=== PATIENT | male | born 1935 | race Caucasian/White ===

== ENCOUNTER 2016-12-01 10:07 | Emergency (ER) | payer MEDICARE, OTHER ==
[2016-12-01] MEDS ORDERED: SODIUM CHLORIDE 0.9% 1,000 ML IV ONE (11:51)
[2016-12-01] MEDS ORDERED: diltiaZEM INJ 5 MG/ML VIAL IVP STA ×2 (12:42→13:28)
[2016-12-01] MEDS ORDERED: diltiaZEM INJ 5 MG/ML VIAL ONE ×2 (12:59→13:31)
== END 2016-12-01 14:05 | disposition home or self-care (01) ==
DX: E86.0 Dehydration (principal); R00.0 Tachycardia, unspecified; I45.10 Unspecified right bundle-branch block; I10 Essential (primary) hypertension; I48.91 Unspecified atrial fibrillation; Z79.01 Long term (current) use of anticoagulants; E11.9 Type 2 diabetes mellitus without complications; Z79.84 Long term (current) use of oral hypoglycemic drugs; Z79.82 Long term (current) use of aspirin

== ENCOUNTER 2016-12-03 14:23 | Emergency (ER) | payer MEDICARE, OTHER ==
--- NOTE | 2016-12-03 15:17 | ED Physician Documentation ---
PD HPI CHEST PAIN - Stated complaint Stated Complaint: ELEVATED HR - Chief complaint Chief Complaint: Cardiac - History obtained from History obtained from: Patient, Other (PMD Dr. Maurer) - History of Present Illness Timing - onset: How many days ago (he has had elevated heart rate for few days. History of intermittent atrial fib. Seen in ED recently and had IV diltiazem given with slowing of heart rate and reportedly NSR at time of discharge. He says heart rate increased to 110-130 later that day and has continued that way. Seen [facility] office today and HR noted 130s. Referred to ED.) Timing - onset during: Rest, Light activity Timing - duration: Days Timing - details: Gradual onset, Still present, Waxing and waning Quality: Other (he notes his heart rate to be fast, but no chest discomfort, lightheadedness.). No: Pressure, Tightness Location: Substernal Improved by: No: Rest Worsened by: Exertion (he says his heart rate does increase with activity.) Associated symptoms: Palpitations. No: Shortness of air, Diaphoresis, Nausea, General Weakness Similar symptoms before: Diagnosis (intermittent atrial fib. He says he will note his heart rate irregular and slightly fast about 1/5 days when he takes his BP.) Recently seen: Clinic, Emergency Dept Review of Systems Constitutional: denies: Fever, Chills Nose: denies: Rhinorrhea / runny nose, Congestion Throat: denies: Sore throat Cardiac: reports: Palpitations. denies: Chest pain / pressure, Pedal edema, Calf pain Respiratory: denies: Cough GI: denies: Nausea, Vomiting, Diarrhea : denies: Dysuria, Frequency Skin: denies: Rash, Lesions Neurologic: denies: Generalized weakness, Focal weakness, Numbness, Near syncope PD PAST MEDICAL HISTORY - Past Medical History Cardiovascular: Hypertension, High cholesterol, Atrial fibrillation, Other Respiratory: None Endocrine/Autoimmune: Type 2 diabetes GI: GERD, Other : Benign prostate hypertrophy, Other HEENT: Dental implants Psych: None, Claustrophobia Musculoskeletal: Osteoarthritis Derm: Psoriasis - Past Surgical History General: Colonoscopy, EGD Ortho: Carpal Tunnel surgery HEENT: Tonsil/Adenoidectomy - Present Medications Home Medications: Ambulatory Orders Medication Instructions Recorded Confirmed Aspirin 81 mg PO DAILY 08/11/13 12/01/16 Lisinopril 10 mg PO DAILY 08/11/13 12/01/16 Loratadine [Claritin] 10 mg PO DAILY 08/11/13 12/01/16 Meloxicam 15 mg PO DAILY 08/11/13 12/03/16 Pioglitazone [Actos] 30 mg PO DAILY 08/11/13 12/01/16 Simvastatin 20 mg PO QPM 08/11/13 12/03/16 Brimonidine 0.15% Ophth Drops 1 drops OPTH BID 08/13/15 12/01/16 [Alphagan P 0.15% Ophth Drops] Diltiazem HCl [Diltiazem ER] 120 mg PO DAILY 08/13/15 12/01/16 Dorzolamide 2% Ophth Drops 1 drops OPTH QPM 08/13/15 12/01/16 [Trusopt 2% Ophth Drops] Doxazosin Mesylate 2 mg PO DAILY 08/13/15 12/01/16 Esomeprazole [NexIUM] 40 mg PO DAILY 08/13/15 12/01/16 Magnesium Oxide 500 mg PO DAILY 08/13/15 12/01/16 Multivitamin [One-A-Day Essential] 1 tab PO DAILY 08/13/15 12/01/16 Sulfasalazine [Sulfazine] 2,000 mg PO DAILY 08/13/15 12/03/16 Timolol 0.25% Ophth Drops 1 drop EACHEYE BID 08/13/15 12/03/16 [Timoptic 0.25% Ophth Drops] Ubidecarenone [Coq-10] 300 mg PO DAILY 08/13/15 12/03/16 Warfarin [Coumadin] 2.5 mg PO DAILY 12/01/16 12/03/16 Amiodarone [Pacerone] 200 mg PO DAILY #20 tablet 12/03/16 diltiaZEM [Cardizem] 60 mg PO Q6H PRN #15 tablet 12/03/16 - Allergies Allergies/Adverse Reactions: Allergies Allergy/AdvReac Type Severity Reaction Status Date / Time No Known Drug Allergies Allergy Verified 08/13/15 10:05 - Social History Does the pt smoke?: No Smoking Status: Former smoker Does the pt drink ETOH?: Yes Does the pt have substance abuse?: No PD ED PE NORMAL - Vitals Vital signs reviewed: Yes - General General: Alert and oriented X 3, No acute distress, Well developed/nourished - Neck Neck: Supple, no meningeal sign, No adenopathy - Cardiac Cardiac: No murmur, No rub. No: RRR (fairly regular but fast 130s. ) - Respiratory Respiratory: Clear bilaterally - Abdomen Abdomen: Soft, Non tender - Back Back: No CVA TTP - Derm Derm: Normal color, Warm and dry - Extremities Extremities: No deformity, No tenderness to palpate, No edema, No calf tenderness / cord - Neuro Neuro: Alert and oriented X 3, No motor deficit, Normal speech - Psych Psych: Normal mood, Normal affect Results - Vitals Vitals: Vital Signs - 24 hr 12/03/16 12/03/16 12/03/16 14:25 15:03 16:12 Temperature 36.3 C L Heart Rate 127 H 129 H 128 H Respiratory 16 16 16 Rate Blood Pressure 161/91 H 135/94 H 136/93 H O2 Saturation 96 97 98 12/03/16 12/03/16 12/03/16 16:16 16:27 16:42 Temperature Heart Rate 128 H 109 H 101 H Respiratory 18 Rate Blood Pressure 124/80 124/80 142/78 H O2 Saturation 96 99 12/03/16 12/03/16 12/03/16 18:03 18:50 19:48 Temperature Heart Rate 103 H 103 H 132 H Respiratory 16 18 18 Rate Blood Pressure 136/62 H 143/84 H 151/94 H O2 Saturation 96 99 95 12/03/16 12/03/16 19:54 20:01 Temperature Heart Rate 131 H 101 H Respiratory 17 18 Rate Blood Pressure 151/94 H 137/69 H O2 Saturation 96 94 Oxygen O2 Source Room air - EKG (time done) 14:37 Rate: Rate (enter#) (127) Rhythm: Atrial flutter Superior: Normal Intervals: Normal OR, Wide QRS QRS: Normal Ischemia: No: ST elevation c/w ischemia, ST depression Compare to prior EKG: Unchanged from prior EKG Computer interpretation: Disagree with computer - Labs Labs: Laboratory Tests 12/03/16 12/03/16 12/03/16 15:00 15:00 15:00 PT 31.2 H INR 2.7 H Sodium 138 Potassium 4.0 Chloride 103 Carbon Dioxide 27 Anion Gap 8.0 BUN 24 H Creatinine 0.9 Estimated GFR (MDRD) 81 L Glucose 165 H Calcium 8.8 Magnesium 1.7 Total Bilirubin 0.7 AST 21 ALT 22 Alkaline Phosphatase 59 B-Natriuretic Peptide 206 H Total Protein 6.8 Albumin 4.3 Globulin 2.5 Albumin/Globulin Ratio 1.7 Lipase 29 - Rads (name of study) chest Radiology: Prelim report reviewed, EMP read contemporaneously (no signs CHF. Enlarged heart. ) PD MEDICAL DECISION MAKING - ED course Complexity details: re-evaluated patient (Given history of intermittent fib and with it frequently, I think the goal is rate control initially. He is anticoagulated. However would not think he needs cardioversion and he would prefer not. Given diltiazem IV to slow the rate. I talked with oncology radiation physician Cardiology, who suggested Amiodarone for rhythm control over next few days, and to add PRN diltiazem if heart rate fast. He did not see need for abrupt rhythm control since so often in and out of fib and without symptoms. Repeat doses diltiazem until heart rate about 100. Looks more fib at this time. He is still feeling okay. Given Mag load. given first dose amiodarone. ), considered differential, d/w patient Departure - Departure Disposition: Home, Self Care Clinical Impression: Atrial fibrillation Qualifiers: Atrial fibrillation type: paroxysmal Qualified Code(s): I48.0 - Paroxysmal atrial fibrillation Condition: Stable Record reviewed to determine appropriate education?: Yes Instructions: Fibrillation Atrial Dc Follow-Up: Morteza Maurer MD [Primary Care Provider] - Prescriptions: diltiaZEM [Cardizem] 60 mg PO Q6H PRN #15 tablet PRN Reason: Tachycardia Amiodarone [Pacerone] 200 mg PO DAILY #20 tablet Comments: The Alcohol Law Enforcement Agent oncology radiation physician directed starting Amiodarone 400 mg daily for 5 days, then down to 200 mg daily. Continue the current dose of long acting diltiazem 120 mg daily. Add to that a short acting diltiazem 60 mg every 8 hours if needed for faster heart rate (over 110 or so). Continue other medications. Call your Alcohol Law Enforcement Agent tomorrow to verify the treatment and arrange a follow up appt. You will want to get your Coumadin level checked in 4-5 days to ensure it doesn't go up too high with the new medications. Return if problems sooner. Discharge Date/Time: 12/03/16 20:36
[2016-12-03] MEDS ORDERED: diltiaZEM INJ 5 MG/ML VIAL IVP STA ×3 (15:35→19:28)
[2016-12-03] MEDS ORDERED: POTASSIUM BICARB 25 MEQ TABLET PO STA (15:36)
[2016-12-03 15:54] LABS: INR 2.7 (0.8-1.2); PT - PROTHROMBIN TIME 31.2 secs (9.9-12.6)
[2016-12-03] MEDS ORDERED: diltiaZEM INJ 5 MG/ML VIAL ONE ×3 (15:59→19:42)
[2016-12-03] MEDS ORDERED: POTASSIUM BICARB 25 MEQ TABLET PO ONE (16:00)
[2016-12-03 16:07] LABS: ALBUMIN/GLOBULIN RATIO 1.7 (1.0-2.2); BILIRUBIN,TOTAL 0.7 mg/dL (0.2-1.0); CALCIUM 8.8 mg/dL (8.5-10.3); CREATININE 0.9 mg/dL (0.6-1.2); MAGNESIUM 1.7 mg/dL (1.7-2.8); TOTAL PROTEIN 6.8 g/dL (6.7-8.2)
--- NOTE | 2016-12-03 16:15 | XRAY Preliminary Report ---
Exam: XR Chest 1 View IMPRESSION: No acute airspace disease. [facility] SITE ID: [id number]
--- NOTE | 2016-12-03 16:18 | XRAY Report ---
EXAM: CHEST RADIOGRAPHY EXAM DATE: 12/03/2016 03:57 PM. CLINICAL HISTORY: Dyspnea. COMPARISON: None. TECHNIQUE: 1 view. FINDINGS: Lungs/Pleura: No focal opacities evident. No pneumothorax or pleural effusion. Mediastinum: Dense atherosclerotic aortic calcifications. Other: Bilateral shoulder degenerative changes. IMPRESSION: No acute airspace disease. [facility] Referring Provider Line: [phone] SITE ID: [id number]
[2016-12-03] MEDS ORDERED: MAGNESIUM SULFATE 2 GRAM 50 ML IV ONE ×2 (17:12→17:17)
[2016-12-03] MEDS ORDERED: AMIODARONE 200 MG TABLET PO STA (17:13)
[2016-12-03] MEDS ORDERED: diltiaZEM 30 MG TABLET PO STA (18:38)
[2016-12-03] MEDS ORDERED: diltiaZEM 30 MG TABLET PO ONE ×2 (18:50→18:51)
[2016-12-03 20:03] VITALS: BP 137/69
== END 2016-12-03 20:36 | disposition home or self-care (01) ==
LOC: ED 14:23
DX: I48.0 Paroxysmal atrial fibrillation (principal); I48.92 Unspecified atrial flutter; Z79.01 Long term (current) use of anticoagulants; Z79.82 Long term (current) use of aspirin; I10 Essential (primary) hypertension; E11.9 Type 2 diabetes mellitus without complications; Z79.84 Long term (current) use of oral hypoglycemic drugs; Z87.891 Personal history of nicotine dependence
CPT/HCPCS: 36415; 71010; 80053; 83690; 83735; 83880; 85610; 93005; 93010; 96374; 96375; 96376; 99284; A9270

== ENCOUNTER 2017-01-13 11:35 | Outpatient (CLI) | payer MEDICARE, OTHER | END 2017-01-13 11:36 | disposition home or self-care (01) | DX: E11.9 Type 2 diabetes mellitus without complications (principal) ==

== ENCOUNTER 2017-03-01 07:30 | Outpatient (CLI) | payer MEDICARE, OTHER ==
[2017-03-01 13:46] LABS: BASOPHILS % (AUTO) 0.5 %; EOSINOPHILS # (AUTO) 0.4 10^3/uL (0.0-0.7); EOSINOPHILS % (AUTO) 5.3 %; HCT - HEMATOCRIT 37.3 % (42.0-52.0); HGB - HEMOGLOBIN 12.5 g/dL (14.0-18.0); LYMPHOCYTES # (AUTO) 1.8 10^3/uL (1.5-3.5); LYMPHOCYTES % (AUTO) 22.4 %; MEAN CORPUSCULAR HEMOGLOBIN 31.5 pg (27.0-31.0); MEAN CORPUSCULAR HGB CONC 33.6 g/dL (32.0-36.0); MEAN CORPUSCULAR VOLUME 93.8 fL (80.0-94.0); MEAN PLATELET VOLUME 9.8 fL (7.4-11.4); MONOCYTES % (AUTO) 11.9 %; NEUTROPHILS # (AUTO) 4.8 10^3/uL (1.5-6.6); NEUTROPHILS % (AUTO) 59.9 %; NUCLEATED RED BLOOD CELLS AUTO 0.1 /100WBC; RED BLOOD COUNT 3.97 10^6/uL (4.70-6.10); RED CELL DISTRIBUTION WIDTH 14.9 % (12.0-15.0)
[2017-03-01 14:11] LABS: ALBUMIN/GLOBULIN RATIO 1.4 (1.0-2.2); BILIRUBIN,TOTAL 0.6 mg/dL (0.2-1.0); CALCIUM 9.2 mg/dL (8.5-10.3); CREATININE 1.3 mg/dL (0.6-1.2); POTASSIUM 4.4 mmol/L (3.5-5.0); TOTAL PROTEIN 6.8 g/dL (6.7-8.2)
== END 2017-03-01 07:31 | disposition home or self-care (01) ==
LOC: LAB.WCP 07:30
PROVIDERS: ATTEND Internal Medicine Rheumatology
DX: M05.29 Rheumatoid vasculitis with rheumatoid arthritis of multiple sites (principal)
CPT/HCPCS: 36415; 80048; 80053; 82043; 83036; 85025; 85651

== ENCOUNTER 2017-03-01 07:30 | Outpatient (CLI) | payer MEDICARE, OTHER | END 2017-03-01 07:31 | disposition home or self-care (01) | DX: E11.9 Type 2 diabetes mellitus without complications (principal) ==

== ENCOUNTER 2017-03-10 10:03 | Outpatient (CLI) | payer MEDICARE, OTHER | END 2017-03-10 10:04 | disposition home or self-care (01) | DX: I48.92 Unspecified atrial flutter (principal); I10 Essential (primary) hypertension; E11.9 Type 2 diabetes mellitus without complications; M06.9 Rheumatoid arthritis, unspecified ==

== ENCOUNTER 2017-06-03 07:45 | Outpatient (CLI) | payer MEDICARE, OTHER ==
[2017-06-03 13:43] LABS: HEMOGLOBIN A1C 0.61 g/dL
[2017-06-03 13:45] LABS: ALBUMIN/GLOBULIN RATIO 1.6 (1.0-2.2); BILIRUBIN,TOTAL 0.6 mg/dL (0.2-1.0); CALCIUM 9.2 mg/dL (8.5-10.3); CREATININE 1.4 mg/dL (0.6-1.2); POTASSIUM 4.5 mmol/L (3.5-5.0); TOTAL PROTEIN 6.8 g/dL (6.7-8.2)
== END 2017-06-03 07:46 | disposition home or self-care (01) ==
LOC: LAB.WCP 07:45
PROVIDERS: ATTEND Family Medicine
DX: I48.92 Unspecified atrial flutter (principal); I10 Essential (primary) hypertension; E11.9 Type 2 diabetes mellitus without complications; M06.9 Rheumatoid arthritis, unspecified
CPT/HCPCS: 36415; 80053; 83036

== ENCOUNTER 2017-11-03 21:53 | Outpatient (CLI) | payer MEDICARE, OTHER | END 2017-11-03 21:54 | disposition home or self-care (01) | LOC: LAB.WCP 21:53 | PROVIDERS: ATTEND Urology | DX: Z12.5 Encounter for screening for malignant neoplasm of prostate (principal) | CPT/HCPCS: 36415; G0103; 84153 ==

== ENCOUNTER 2017-12-02 07:35 | Outpatient (CLI) | payer MEDICARE, OTHER ==
[2017-12-02 13:26] LABS: BASOPHILS # (AUTO) 0.1 10^3/uL (0.0-0.1); BASOPHILS % (AUTO) 1.7 %; EOSINOPHILS # (AUTO) 0.6 10^3/uL (0.0-0.7); HGB - HEMOGLOBIN 13.3 g/dL (14.0-18.0); LYMPHOCYTES # (AUTO) 1.6 10^3/uL (1.5-3.5); LYMPHOCYTES % (AUTO) 24.6 %; MEAN CORPUSCULAR HEMOGLOBIN 31.5 pg (27.0-31.0); MEAN CORPUSCULAR HGB CONC 33.8 g/dL (32.0-36.0); MEAN CORPUSCULAR VOLUME 93.1 fL (80.0-94.0); MEAN PLATELET VOLUME 9.6 fL (7.4-11.4); MONOCYTES % (AUTO) 15.8 %; NEUTROPHILS # (AUTO) 3.2 10^3/uL (1.5-6.6); NEUTROPHILS % (AUTO) 48.9 %; PLT - PLATELET COUNT 184 10^3/uL (130-450); RED BLOOD COUNT 4.22 10^6/uL (4.70-6.10); WHITE BLOOD COUNT 6.4 x10^3/uL (4.8-10.8)
[2017-12-02 13:44] LABS: THYROID STIMULATING HORMONE 7.51 uIU/mL (0.34-5.60)
[2017-12-02 13:47] LABS: ALBUMIN 4.4 g/dL (3.2-5.5); ALBUMIN/GLOBULIN RATIO 1.6 (1.0-2.2); ALKALINE PHOSPHATASE 64 IU/L (42-121); ALT ALANINE AMINOTRANSFERASE 19 IU/L (10-60); AST ASPARTATE AMINOTRANSFERASE 26 IU/L (10-42); BILIRUBIN,TOTAL 0.4 mg/dL (0.2-1.0); BUN - BLOOD UREA NITROGEN 19 mg/dL (6-20); CALCIUM 8.8 mg/dL (8.5-10.3); CARBON DIOXIDE - CO2 27 mmol/L (21-32); CHLORIDE 103 mmol/L (101-111); CREATININE 1.5 mg/dL (0.6-1.2); GFR - MDRD 45 (>89); GLUCOSE 119 mg/dL (70-100); SODIUM 137 mmol/L (135-145); TOTAL PROTEIN 7.2 g/dL (6.7-8.2)
[2017-12-02 14:22] LABS: FREE T4 (FREE THYROXINE) 1.02 ng/dL (0.58-1.64)
[2017-12-02 14:24] LABS: HB2 TOTAL 14.4 g/dL; HEMOGLOBIN A1C 0.62 g/dL; HEMOGLOBIN A1C % 6.1 % (4.6-6.2)
== END 2017-12-02 07:36 ==
LOC: LAB.WCP 07:35
PROVIDERS: ATTEND Internal Medicine Rheumatology
DX: M06.9 Rheumatoid arthritis, unspecified (principal); E11.9 Type 2 diabetes mellitus without complications; R60.9 Edema, unspecified; I48.0 Paroxysmal atrial fibrillation; I10 Essential (primary) hypertension
CPT/HCPCS: 36415; 80053; 83036; 84439; 84443; 85025; 85651

== ENCOUNTER 2017-12-22 09:00 | Outpatient (CLI) | payer MEDICARE, OTHER ==
[2017-12-22 13:16] LABS: HB2 TOTAL 14.3 g/dL; HEMOGLOBIN A1C 0.63 g/dL; HEMOGLOBIN A1C % 6.2 % (4.6-6.2)
[2017-12-22 13:21] LABS: THYROID STIMULATING HORMONE 6.12 uIU/mL (0.34-5.60)
[2017-12-22 13:28] LABS: ALBUMIN 3.8 g/dL (3.2-5.5); ALBUMIN/GLOBULIN RATIO 1.1 (1.0-2.2); ALKALINE PHOSPHATASE 61 IU/L (42-121); ALT ALANINE AMINOTRANSFERASE 29 IU/L (10-60); AST ASPARTATE AMINOTRANSFERASE 30 IU/L (10-42); BILIRUBIN,TOTAL 0.4 mg/dL (0.2-1.0); BUN - BLOOD UREA NITROGEN 24 mg/dL (6-20); CALCIUM 9.2 mg/dL (8.5-10.3); CARBON DIOXIDE - CO2 26 mmol/L (21-32); CHLORIDE 104 mmol/L (101-111); CREATININE 1.3 mg/dL (0.6-1.2); GFR - MDRD 53 (>89); GLUCOSE 145 mg/dL (70-100); SODIUM 137 mmol/L (135-145); TOTAL PROTEIN 7.3 g/dL (6.7-8.2)
[2017-12-22 14:04] LABS: FREE T4 (FREE THYROXINE) 1.17 ng/dL (0.58-1.64)
== END 2017-12-22 09:01 | disposition home or self-care (01) ==
LOC: LAB.WCP 09:00
PROVIDERS: ATTEND Family Medicine
DX: I48.0 Paroxysmal atrial fibrillation (principal); I10 Essential (primary) hypertension; E11.9 Type 2 diabetes mellitus without complications; R60.9 Edema, unspecified
CPT/HCPCS: 36415; 80053; 83036; 84439; 84443

== ENCOUNTER 2018-02-24 08:00 | Outpatient (CLI) | payer MEDICARE, OTHER ==
[2018-02-24 13:36] LABS: HB2 TOTAL 13.1 g/dL; HEMOGLOBIN A1C 0.66 g/dL; HEMOGLOBIN A1C % 6.8 % (4.6-6.2)
[2018-02-24 13:43] LABS: ALBUMIN 3.5 g/dL (3.2-5.5); ALBUMIN/GLOBULIN RATIO 0.9 (1.0-2.2); BILIRUBIN,TOTAL 0.4 mg/dL (0.2-1.0); TOTAL PROTEIN 7.4 g/dL (6.7-8.2)
== END 2018-02-24 08:01 ==
LOC: LAB.WCP 08:00
PROVIDERS: ATTEND Family Medicine
DX: K57.90 Diverticulosis of intestine, part unspecified, without perforation or abscess without bleeding (principal); I12.9 Hypertensive chronic kidney disease with stage 1 through stage 4 chronic kidney disease, or unspecified chronic kidney disease; N18.3 Chronic kidney disease, stage 3 (moderate); E11.9 Type 2 diabetes mellitus without complications; I48.92 Unspecified atrial flutter; M06.9 Rheumatoid arthritis, unspecified
CPT/HCPCS: 36415; 80053; 82043; 83036

== ENCOUNTER 2018-04-18 08:52 | Inpatient (IN) | payer MEDICARE, OTHER ==
--- NOTE | 2018-04-18 10:29 | ED Physician Documentation ---
PD HPI URI - Stated complaint Stated Complaint: SOA/CHEST PX - Chief complaint Chief Complaint: Cardiac - History obtained from History obtained from: Patient - History of Present Illness Timing - onset: How many weeks ago (2) Timing duration: Weeks (2) Timing details: Gradual onset, Still present Associated symptoms: Fever, Nasal congestion, Rhinorrhea, Dry cough, Chest pain , Dyspnea Improves by: Rest, Medication Similar symptoms before: Has not had sx before Recently seen: Not recently seen Review of Systems Constitutional: reports: Fever Eyes: denies: Decreased vision Ears: denies: Ear pain Nose: reports: Rhinorrhea / runny nose, Congestion Throat: denies: Sore throat Cardiac: reports: Chest pain / pressure (to the right side) Respiratory: reports: Dyspnea, Cough GI: denies: Abdominal Pain, Nausea, Vomiting : denies: Dysuria, Frequency Skin: denies: Rash Musculoskeletal: denies: Neck pain, Back pain, Extremity pain Neurologic: reports: Generalized weakness. denies: Focal weakness, Numbness PD PAST MEDICAL HISTORY - Past Medical History Cardiovascular: Hypertension, High cholesterol, Atrial fibrillation, Other Respiratory: None Endocrine/Autoimmune: Type 2 diabetes GI: GERD, Other : Benign prostate hypertrophy, Other HEENT: Dental implants Psych: None, Claustrophobia Musculoskeletal: Osteoarthritis Derm: Psoriasis - Past Surgical History Past Surgical History: Yes General: Colonoscopy, EGD Ortho: Carpal Tunnel surgery HEENT: Tonsil/Adenoidectomy - Present Medications Home Medications: Ambulatory Orders Medication Instructions Recorded Confirmed Lisinopril 10 mg PO DAILY 08/11/13 04/18/18 Loratadine [Claritin] 10 mg PO DAILY 08/11/13 04/18/18 Simvastatin 20 mg PO QPM 08/11/13 04/18/18 Brimonidine 0.15% Ophth Drops 1 drops EACHEYE BID 08/13/15 04/18/18 [Alphagan P 0.15% Ophth Drops] Dorzolamide 2% Ophth Drops 1 drops EACHEYE BID 08/13/15 04/18/18 [Trusopt 2% Ophth Drops] Doxazosin Mesylate 4 mg PO QPM 08/13/15 04/18/18 Magnesium Oxide 500 mg PO DAILY 08/13/15 04/18/18 Multivitamin [One-A-Day Essential] 1 tab PO DAILY 08/13/15 04/18/18 Sulfasalazine [Sulfazine] 1,500 mg PO 0800,1600 08/13/15 04/18/18 Warfarin [Coumadin] 2.5 mg PO TUTHSA@1400 12/01/16 04/18/18 Amiodarone [Pacerone] 100 mg PO DAILY 04/18/18 04/18/18 Furosemide [Lasix] 40 mg PO 1600 04/18/18 04/18/18 Metformin HCl [Metformin HCl ER] 500 mg PO DAILY 04/18/18 04/18/18 Pantoprazole [Protonix] 40 mg PO QDAC 04/18/18 04/18/18 Potassium Chloride [K-Dur] 20 meq PO BIDWM 04/18/18 04/18/18 Timolol 0.5% Ophth Drops [Timoptic 1 drops EACHEYE BID 04/18/18 04/18/18 0.5% Ophth Drops] Warfarin [Coumadin] 1.25 mg PO SUMOWEFR@1400 04/18/18 04/18/18 - Allergies Allergies/Adverse Reactions: Allergies Allergy/AdvReac Type Severity Reaction Status Date / Time No Known Drug Allergies Allergy Verified 08/13/15 10:05 - Social History Does the pt smoke?: No Smoking Status: Former smoker Does the pt drink ETOH?: Yes Does the pt have substance abuse?: No - Immunizations Immunizations are current?: Yes PD ED PE NORMAL - Vitals Vital signs reviewed: Yes (tachy ) - General General: Alert and oriented X 3, No acute distress, Well developed/nourished - HEENT HEENT: Atraumatic, PERRL, EOMI, Ears normal, Other (dry mucous membranes ) - Neck Neck: Supple, no meningeal sign, No bony TTP - Cardiac Cardiac: No murmur, Other (tachy to 110) - Respiratory Respiratory: No respiratory distress, Other (rhonchi on the right side. ) - Abdomen Abdomen: Soft, Non tender - Back Back: No CVA TTP, No spinal TTP - Derm Derm: Normal color, Warm and dry, No rash - Extremities Extremities: No deformity, Other (trace edema bilaterally ) - Neuro Neuro: Alert and oriented X 3, No motor deficit, No sensory deficit, Normal speech Eye Opening: Spontaneous Motor: Obeys Commands Verbal: Oriented GCS Score: 15 - Psych Psych: Normal mood, Normal affect Results - Vitals Vitals: Vital Signs - 24 hr 04/18/18 04/18/18 08:59 10:08 Temperature 36.2 C L Heart Rate 115 H 110 H Respiratory 20 91 H Rate Blood Pressure 120/68 130/77 O2 Saturation 92 Oxygen O2 Source Room air - EKG (time done) 901 Rate: Rate (enter#) (116) Rhythm: NSR Intervals: RBBB Compare to prior EKG: Changed from prior EKG (SPT 12-03-16 rate has decreased) Computer interpretation: Agree with computer - Labs Labs: Laboratory Tests 04/18/18 04/18/18 04/18/18 09:26 09:26 09:26 WBC 32.8 H RBC 3.72 L Hgb 10.7 L Hct 33.8 L MCV 90.8 MCH 28.8 MCHC 31.7 L RDW 16.0 H Plt Count 394 MPV 8.9 Neut # (Auto) Not Reportable Lymph # (Auto) Not Reportable [place] # (Auto) Not Reportable Eos # (Auto) Not Reportable Baso # (Auto) Not Reportable Absolute Nucleated RBC Not Reportable Total Counted 100 Band Neuts % (Manual) 2 Abnorm Lymph % (Manual) 0 Metamyelocytes % 1 H Nucleated RBC % Not Reportable Neutrophils # (Manual) 29.2 H Lymphocytes # (Manual) 0.7 L Monocytes # (Manual) 2.6 H Eosinophils # (Manual) 0.0 Basophils # (Manual) 0.0 Differential Comment MANUAL DIFFERENTIAL Manual Slide Review Indicated Platelet Estimate NORMAL (130-450,000) Platelet Morphology NORMAL APPEARANCE RBC Morph Micro Appear NORMAL APPEARANCE PT 60.2 H INR 5.7 H* Sodium 128 L Potassium 5.1 H Chloride 93 L Carbon Dioxide 23 Anion Gap 12.0 BUN 34 H Creatinine 1.6 H Estimated GFR (MDRD) 42 L Glucose 241 H Lactic Acid Calcium 8.8 Total Bilirubin 0.5 AST 25 ALT 19 Alkaline Phosphatase 84 Troponin I Total Protein 6.4 L Albumin 3.0 L Globulin 3.4 Albumin/Globulin Ratio 0.9 L Lipase 24 Urine Color Urine Clarity Urine pH Ur Specific [place] Urine Protein Urine Glucose (UA) Urine Ketones Urine Occult Blood Urine Nitrite Urine Bilirubin Urine Urobilinogen Ur Leukocyte Esterase Ur Microscopic Review Urine Culture Comments 04/18/18 04/18/18 04/18/18 09:26 09:26 11:00 WBC RBC Hgb Hct MCV MCH MCHC RDW Plt Count MPV Neut # (Auto) Lymph # (Auto) [place] # (Auto) Eos # (Auto) Baso # (Auto) Absolute Nucleated RBC Total Counted Band Neuts % (Manual) Abnorm Lymph % (Manual) Metamyelocytes % Nucleated RBC % Neutrophils # (Manual) Lymphocytes # (Manual) Monocytes # (Manual) Eosinophils # (Manual) Basophils # (Manual) Differential Comment Manual Slide Review Platelet Estimate Platelet Morphology RBC Morph Micro Appear PT INR Sodium Potassium Chloride Carbon Dioxide Anion Gap BUN Creatinine Estimated GFR (MDRD) Glucose Lactic Acid 3.8 H* Calcium Total Bilirubin AST ALT Alkaline Phosphatase Troponin I < 0.04 Total Protein Albumin Globulin Albumin/Globulin Ratio Lipase Urine Color DARK YELLOW Urine Clarity CLEAR Urine pH 6.0 Ur Specific [place] 1.025 Urine Protein NEGATIVE Urine Glucose (UA) NEGATIVE Urine Ketones NEGATIVE Urine Occult Blood TRACE-INTA Urine Nitrite NEGATIVE Urine Bilirubin NEGATIVE Urine Urobilinogen 0.2 (NORMAL) Ur Leukocyte Esterase NEGATIVE Ur Microscopic Review NOT INDICATED Urine Culture Comments NOT INDICATED - Rads (name of study) 2 veiw chest Radiology: Prelim report reviewed (Impression: 1. Moderate right pleural effusion and right mid and lower lung opacity consider further detail CT chest with IV contrast. Cardiomegaly. No vascular congestion.), EMP read indepedently, See rad report Procedures - IVC sono (time) 1010 Bedside IVC sono: IVC measures (cm) (1.27), IVC collapsed c insp (cm) (complete) , Dehydration (est 1 liter deficit) PD MEDICAL DECISION MAKING - ED course Complexity details: reviewed results, re-evaluated patient, considered differential, d/w patient ED course: 82 y/o male with a cough for the past 2 weeks has developed pain in the right chest, soa and weakness. On arrival it appears he likely has pneumonia. He arrives tachy and tachypneic with low oxygen sat at 90% room air. Admission is sought. - Sepsis Event Vital Signs: Vital Signs - 24 hr 04/18/18 04/18/18 08:59 10:08 Temperature 36.2 C L Heart Rate 115 H 110 H Respiratory 20 91 H Rate Blood Pressure 120/68 130/77 O2 Saturation 92 Oxygen O2 Source Room air Departure - Departure Disposition: [facility] DC/Xfer Clinical Impression: Pneumonia Qualifiers: Pneumonia type: due to unspecified organism Laterality: right Lung location: lower lobe of lung Qualified Code(s): J18.1 - Lobar pneumonia, unspecified organism Discharge Date/Time: 04/18/18 13:18
[2018-04-18 11:10] LABS: BASOPHILS % (AUTO) 0.2 %; EOSINOPHILS % (AUTO) 0.1 %; HGB - HEMOGLOBIN 10.7 g/dL (14.0-18.0); LYMPHOCYTES % (AUTO) 1.7 %; MEAN CORPUSCULAR HEMOGLOBIN 28.8 pg (27.0-31.0); MEAN CORPUSCULAR HGB CONC 31.7 g/dL (32.0-36.0); MEAN CORPUSCULAR VOLUME 90.8 fL (80.0-94.0); MEAN PLATELET VOLUME 8.9 fL (7.4-11.4); MONOCYTES % (AUTO) 10.5 %; NEUTROPHILS % (AUTO) 87.5 %; PLT - PLATELET COUNT 394 10^3/uL (130-450); PT - PROTHROMBIN TIME 60.2 secs (9.9-12.6); RED BLOOD COUNT 3.72 10^6/uL (4.70-6.10); WHITE BLOOD COUNT 32.8 x10^3/uL (4.8-10.8)
[2018-04-18 11:11] LABS: ALBUMIN/GLOBULIN RATIO 0.9 (1.0-2.2); BILIRUBIN,TOTAL 0.5 mg/dL (0.2-1.0); CALCIUM 8.8 mg/dL (8.5-10.3); CREATININE 1.6 mg/dL (0.6-1.2); TOTAL PROTEIN 6.4 g/dL (6.7-8.2)
[2018-04-18] MEDS ORDERED: SODIUM CHLORIDE 0.9% 1,000 ML IV ONE (11:15)
[2018-04-18] MEDS ORDERED: cefTRIAXone 1 GM in SODIUM CHLORIDE 0.9% MINIBAG 100 ML IV STA (11:15)
[2018-04-18 11:19] LABS: INR 5.7 (0.8-1.2)
[2018-04-18 11:24] LABS: ABNORMAL LYMPHS % (MANUAL) 0 %
--- NOTE | 2018-04-18 11:25 | XRAY Report ---
Procedure Date: 04/18/2018 Accession Number: [id number] / [id number] Procedure: XR - Chest 2 View X-Ray CPT Code: 73780 FULL RESULT: EXAM: CHEST RADIOGRAPHY EXAM DATE: 04/18/2018 11:03 AM. CLINICAL HISTORY: R mid lung rhonchi. COMPARISON: 12/03/2016. TECHNIQUE: 2 views. FINDINGS: Lungs/Pleura: Moderate right pleural effusion and right mid and lower lung opacity. Left lung is clear. No pneumothorax. Mediastinum: Heart is enlarged. Aorta is tortuous. Aortic atherosclerosis. Other: Degenerative changes of the thoracic spine. IMPRESSION: 1. Moderate right pleural effusion and right mid and lower lung opacity. Consider further details CT chest with IV contrast. 2. Cardiomegaly. No vascular congestion. [facility]
[2018-04-18 11:28] LABS: BAND NEUTROPHILS % (MANUAL) 2 %; LYMPHOCYTES # (MANUAL) 0.7 10^3/uL (1.5-3.5); LYMPHOCYTES % (MANUAL) 2 %; METAMYELOCYTES % (MANUAL) 1 %; MONOCYTES # (MANUAL) 2.6 10^3/uL (0.0-1.0); NEUTROPHILS # (MANUAL) 29.2 10^3/uL (1.5-6.6); NEUTROPHILS % (MANUAL) 87 %
[2018-04-18 11:29] LABS: DIFFERENTIAL COMMENT MANUAL DIFFERENTIAL; PLATELET ESTIMATE, MANUAL NORMAL (130-450,000) (NORMAL); PLATELET MORPHOLOGY NORMAL APPEARANCE (NORMAL); RBC MORPHOLOGY (MULTIPLE) NORMAL APPEARANCE (NORMAL)
[2018-04-18 11:32] LABS: BILIRUBIN,URINE NEGATIVE (NEGATIVE); GLUCOSE, URINE (UA) NEGATIVE (NEGATIVE); KETONES,URINE (UA) NEGATIVE (NEGATIVE); LEUKOCYTE ESTERASE, URINE NEGATIVE (NEGATIVE); NITRITE,URINE NEGATIVE (NEGATIVE); OCCULT BLOOD,URINE TRACE-INTA (NEGATIVE); PROTEIN,URINE NEGATIVE (NEGATIVE); UROBILINOGEN,URINE 0.2 (NORMAL) E.U./dL (NORMAL)
[2018-04-18 11:37] LABS: CLARITY,URINE CLEAR (CLEAR)
--- NOTE | 2018-04-18 12:42 | HISTORY & PHYSICAL EXAMINATION ---
Chief Complaint - Chief Complaint Chief Complaint: shortness of breath History of Present Illness - Admitted From Admitted From:: ED - History Obtained From Records Reviewed: yes History obtained from: chart review, Centricity, patient Exam Limitations: none - History of Present Illness HPI Comment/Other: Lorene Meza) is an ill appearing 82-year old obese male with a past medical history of atrial fib/flutter-on chronic anticoagulation, hypertension, diabetes mellitus type 2, hyperlipidemia, rheumatoid arthritis, psoriasis, GERD , diverticulosis, BPH, adenocarcinoma prostate, bells palsy, peripheral neuropathy, DJD, and CKD stage 3. The patient presented to the ED today with complaints of cough, right sided chest pain, and shortness of breath. The dry cough started around one month ago. He states that he has chronic insomnia and only sleeps about 2-3 hours per night. Imaging in the ED show a right lung consolidation, likely pneumonia. Labs show a grossly elevated WBC count of 32.8 , anemia with an H/H of 10.7/33.8, a sodium of 128, potassium of 5.1, creatinine of 1.6, GFR of 42, and an elevated lactic acid of 3.8. The patient is tachycardic with rates in the 110-130's, hypoxic on 2 L per nasal cannula and continues to have a cough. The patient denies nausea, vomiting, recent falls, diarrhea, abdominal pain or bleeding. He will be admitted as inpatient for further treatment of this pneumonia. History - Past Medical History Cardiovascular: reports: Hypertension, High cholesterol, Atrial fibrillation, Other Respiratory: reports: None Neuro: reports: None Endocrine/Autoimmune: reports: Type 2 diabetes GI: reports: GERD, Other : reports: Benign prostate hypertrophy, Nocturia, Other (prostateCA, TURP x2.) HEENT: reports: Glaucoma, Chronic sinusitis, Dental implants Psych: reports: Claustrophobia Musculoskeletal: reports: Osteoarthritis Derm: reports: Psoriasis MRSA Hx?: No - Past Surgical History General: reports: Bowel surgery, Colonoscopy, EGD Ortho: reports: Carpal Tunnel surgery HEENT: reports: Cataracts, Tonsil/Adenoidectomy - Family & Social History Family History: Mother: , Father: Living arrangement: At home Living Situation: Alone Social History [place]: [place] 3 grown children. He had a who in 2004, and since then the patient has not re-. He is retired from the [employer] and [employer]. He denies illicit drug use, alcohol use or tobacco use. He wishes to be a FULL code. - Substance History Use: Uses substance without health or social issues: NONE Abuse: Recurrent use of substance despite neg consequences: NONE Dependence: Experiences withdrawal or developed tolerances: NONE - POLST Patient has POLST: No POLST Status: Full Code Meds/Allgy - Home Medications Home Medications: Ambulatory Orders Medication Instructions Recorded Confirmed Lisinopril 10 mg PO DAILY 08/11/13 04/18/18 Loratadine [Claritin] 10 mg PO DAILY 08/11/13 04/18/18 Simvastatin 20 mg PO QPM 08/11/13 04/18/18 Brimonidine 0.15% Ophth Drops 1 drops EACHEYE BID 08/13/15 04/18/18 [Alphagan P 0.15% Ophth Drops] Dorzolamide 2% Ophth Drops 1 drops EACHEYE BID 08/13/15 04/18/18 [Trusopt 2% Ophth Drops] Doxazosin Mesylate 4 mg PO QPM 08/13/15 04/18/18 Magnesium Oxide 500 mg PO DAILY 08/13/15 04/18/18 Multivitamin [One-A-Day Essential] 1 tab PO DAILY 08/13/15 04/18/18 Sulfasalazine [Sulfazine] 1,500 mg PO 0800,1600 08/13/15 04/18/18 Warfarin [Coumadin] 2.5 mg PO TUTHSA@1400 12/01/16 04/18/18 Amiodarone [Pacerone] 100 mg PO DAILY 04/18/18 04/18/18 Furosemide [Lasix] 40 mg PO 1600 04/18/18 04/18/18 Metformin HCl [Metformin HCl ER] 500 mg PO DAILY 04/18/18 04/18/18 Pantoprazole [Protonix] 40 mg PO QDAC 04/18/18 04/18/18 Potassium Chloride [K-Dur] 20 meq PO BIDWM 04/18/18 04/18/18 Timolol 0.5% Ophth Drops [Timoptic 1 drops EACHEYE BID 04/18/18 04/18/18 0.5% Ophth Drops] Warfarin [Coumadin] 1.25 mg PO SUMOWEFR@1400 04/18/18 04/18/18 - Allergies Allergies/Adverse Reactions: Allergies Allergy/AdvReac Type Severity Reaction Status Date / Time No Known Drug Allergies Allergy Verified 08/13/15 10:05 Review of Systems - Constitutional Constitutional: reports: Fatigue, Poor appetite, Weight loss - Eyes Eyes: reports: Vision loss - Ears, Nose & Throat Ears, Nose & Throat: reports: Postnasal drainage - Cardiovascular Cariovascular: reports: Irregular heart rate, Edema, Decr. exercise tolerance, Orthopnea - Respiratory Respiratory: reports: Cough, Orthopnea, SOB with exertion - Gastrointestinal Gastrointestinal: reports: Abdominal distention, Reflux/heartburn, Poor appetite - Genitourinary Genitourinary: reports: Frequency, Nocturia - Musculoskeletal Musculoskeletal: reports: Back pain, Limited range of motion, Joint swelling - Integumentary Integumentary: reports: Dryness, Pigment changes (mild jaundice) - Neurological Neurological: reports: General weakness, Pre-existing deficit - Hematologic/Lymphatic Hematologic/Lymphatic: reports: Anemia - All Other Systems All Other Systems: reports: Reviewed and negative Exam - Vital Signs Reviewed Vital Signs: Yes Vital Signs: Vital Signs x48h Temp Pulse Resp BP Pulse Ox 04/18/18 12:41 110 H 23 135/75 H 93 04/18/18 10:08 110 H 91 H 130/77 04/18/18 08:59 36.2 C L 115 H 20 120/68 92 - Physical Exam General Appearance: positive: No acute distress, Alert Eyes Bilateral: positive: Normal inspection ENT: positive: ENT inspection nml, Pharyngeal erythema, Dry mucous membranes Neck: positive: Nml inspection, No JVD, Lymphadenopathy (R), Lymphadenopathy (L) , Stiff neck Respiratory: positive: Chest non-tender, Rhonchi Cardiovascular: positive: Irregularly irregular, Tachycardia, Systolic murmur, Decreased pulse(s) Peripheral Pulses: positive: 1+ Abdomen: positive: Non-tender, Hepatomegaly, Abnml bowel sounds, Other (obese, soft) Back: positive: Nml inspection Skin: positive: No rash, Warm, Dry Extremities: positive: Non-tender, Pedal edema, Joint swelling Neurologic/Psychiatric: positive: Oriented x3, CN's nml (2-12), Motor nml, Weakness, Sensory loss, Slurred/abnml speech, Depressed mood/affect Reflexes: Bicep (R): 3+, Bicep (L): 3+ Conclusion/Plan - Problem List (1) CKD (chronic kidney disease) stage 3, GFR 30-59 ml/min Conclusion/Plan: The patient had an elevated creatinine of 1.6 upon admission. (2) Pneumonia Conclusion/Plan: The patient presented to the ED with a right chest pain/tightness caused by coughing, shortness of breath, hypoxia with oxygen saturation ~85% on room air. WBC count was grossly elevated at 32.8. The patient denies recent fever, chills, but has had profound fatigue and mildly increased AMS. Plan: Continue IV antibiotics, low dose IV steroids and nebulizers. Await sputum sample. Qualifiers: Pneumonia type: due to methicillin-sensitive Staphylococcus aureus (MSSA) Laterality: right Lung location: lower lobe of lung Qualified Code(s): J15.211 - Pneumonia due to Methicillin susceptible Staphylococcus aureus (3) Atrial fibrillation Conclusion/Plan: The patient has a long-standing history of atrial fib/flutter. Previously, he was on diltiazem, but this has been discontinued. The patient has kept a log of B/Ps and heart rates that show a progressive elevation from 80's in October/ November up to greater than 100 for the last 2 full months. Plan: Continue amioderone daily dose. IV metoprolol Q6 hours, monitor on tele and routine vital signs. Qualifiers: Atrial fibrillation type: paroxysmal Qualified Code(s): I48.0 - Paroxysmal atrial fibrillation (4) Dehydration Conclusion/Plan: IVC measurements from the ED show a deficit, about 1 Liter deficient. The patient admits to poor PO intake and has dry mucous membranes upon exam. Plan: Gentle IVFs over night and monitor vital signs. (5) Chronic anticoagulation Conclusion/Plan: The patient is prescribed Coumadin and has an elevated INR of 5.7 upon admission. Evening dose was held and daily INR's were ordered. Plan: Continue to monitor with a goal of INR between 2-3. (6) Tachycardia Conclusion/Plan: The patient is noted to be ~120-130 in a telemetry review. I have ordered an echocardiogram that shows mild mitral stenosis, a normal EF of 65-70%, and pulmonary HTN with an RVSP at rest of 57 mmHg. Plan: Continue IV metoprolol scheduled Q6 hours, monitor VS. (7) Pulmonary hypertension Conclusion/Plan: Preliminary Echo results show an RVSP at rest of 57 mmHg, causing moderate to severe pulmonary HTN. The clinical picture shows this as he has a large abdominal girth and BLE edema. The treatment of choice is Spironolactone after this acute illness. Plan: Continue to treat acute illness and start Spironolactone late day #2, if the patient seems more hydrated. (8) Diabetes mellitus type 2 in obese Conclusion/Plan: The patient takes Metformin at home and has been diabetic for several years. He states that he does not check his blood glucose levels at home. Plan: Hold metformin, start low dose Lantus, SSI. - Lab Results Lab results reviewed: Yes Rip Bones: 04/19/18 06:03 04/19/18 06:03 - Diagnostic Imaging Results Diagnostic Imaging Results: positive: Prelim report reviewed, Final report reviewed - EKG Results EKG Interpreted Independently: Yes Core Measures - Anticipated LOS I expect patient to be DC'd or transferred within 96 hours.: Yes - DVT/VTE - Prophylaxis VTE/DVT Device ordered at admit?: Yes VTE/DVT Prophylaxis med ordered at admit?: No Not Ordered - Medical Reason: Contraindicated - Stroke - Rehab Assessment Rehab services assessment to be ordered?: Yes - AMI - Statin at Admit Aspirin Prescribed on Admit: No Not Ordered - Medical Reason: Contraindicated
[2018-04-18] MEDS: SODIUM CHLORIDE 0.9% 1,000 ML IV SCH ×2 (14:58→22:41)
[2018-04-18] MEDS: PANTOPRAZOLE 40 MG TABLET PO SCH (16:40)
[2018-04-18] MEDS: AMIODARONE 200 MG TABLET PO SCH (16:41)
[2018-04-18] MEDS: METOPROLOL 5 MG/5 ML VIAL IVP SCH (16:43)
[2018-04-18] MEDS: INSULIN ASPART 300 UNIT/3 ML PEN SUBQ SCH ×2 (16:49→21:23)
[2018-04-18] MEDS: SODIUM CHLORIDE FLUSH 0.9% 10 ML SYRINGE IVP SCH (16:49)
[2018-04-18] MEDS: LEVALBUTEROL 1.25 MG/3 ML NEB INH SCH (17:44)
[2018-04-18] MEDS: DORZOLAMIDE 2% OPHTH DROPS EACHEYE SCH (21:20)
[2018-04-18] MEDS: BRIMONIDINE 0.15% OPHTH DROPS 5 ML EACHEYE SCH (21:22)
[2018-04-18] MEDS: TIMOLOL 0.5% OPHTH DROPS EACHEYE SCH (21:22)
[2018-04-18] MEDS: INSULIN GLARGINE 300 UNIT/3 ML PEN SUBQ SCH (21:23)
[2018-04-19] MEDS: LEVALBUTEROL 1.25 MG/3 ML NEB INH PRN (00:45)
[2018-04-19] MEDS: methylPREDNISolone SUCCINATE 40 MG/ML VIAL IVP SCH ×2 (01:06→05:42)
[2018-04-19] MEDS: METOPROLOL 5 MG/5 ML VIAL IVP SCH ×5 (01:08→23:59)
[2018-04-19] MEDS: LEVALBUTEROL 1.25 MG/3 ML NEB INH SCH ×4 (01:11→18:04)
[2018-04-19] MEDS: SODIUM CHLORIDE FLUSH 0.9% 10 ML SYRINGE IVP SCH ×3 (01:12→16:31)
[2018-04-19] MEDS ORDERED: methylPREDNISolone SUCCINATE 40 MG/ML VIAL ONE (01:16)
[2018-04-19 06:12] LABS: BASOPHILS % (AUTO) 0.1 %; EOSINOPHILS % (AUTO) 0.1 %; LYMPHOCYTES # (AUTO) 0.5 10^3/uL (1.5-3.5); LYMPHOCYTES % (AUTO) 1.6 %; MEAN CORPUSCULAR HEMOGLOBIN 28.5 pg (27.0-31.0); MEAN CORPUSCULAR HGB CONC 31.2 g/dL (32.0-36.0); MEAN CORPUSCULAR VOLUME 91.5 fL (80.0-94.0); MONOCYTES # (AUTO) 1.5 10^3/uL (0.0-1.0); MONOCYTES % (AUTO) 4.9 %; NEUTROPHILS % (AUTO) 93.3 %; PLT - PLATELET COUNT 372 10^3/uL (130-450); RED CELL DISTRIBUTION WIDTH 16.6 % (12.0-15.0); WHITE BLOOD COUNT 31.1 x10^3/uL (4.8-10.8)
[2018-04-19] MEDS: PANTOPRAZOLE 40 MG TABLET PO SCH (06:16)
[2018-04-19 06:29] LABS: ALBUMIN 2.8 g/dL (3.2-5.5); ALBUMIN/GLOBULIN RATIO 0.7 (1.0-2.2); BILIRUBIN,TOTAL 0.4 mg/dL (0.2-1.0); CALCIUM 8.5 mg/dL (8.5-10.3); MAGNESIUM 1.8 mg/dL (1.7-2.8); TOTAL PROTEIN 6.8 g/dL (6.7-8.2)
[2018-04-19] MEDS: SODIUM CHLORIDE 0.9% 1,000 ML IV SCH (07:05)
[2018-04-19 07:12] LABS: HB2 TOTAL 10.9 g/dL; HEMOGLOBIN A1C 0.44 g/dL; HEMOGLOBIN A1C % 5.8 % (4.6-6.2)
[2018-04-19] MEDS ORDERED: SODIUM CHLORIDE 0.9% 1,000 ML IV SCH ×2 (08:05→08:06)
[2018-04-19 08:41] LABS: INR 5.6 (0.8-1.2)
[2018-04-19] MEDS ORDERED: AMIODARONE 200 MG TABLET PO SCH (09:00)
[2018-04-19] MEDS ORDERED: cefTRIAXone 1 GM in SODIUM CHLORIDE 0.9% MINIBAG 100 ML IV SCH (09:00)
[2018-04-19] MEDS: INSULIN ASPART 300 UNIT/3 ML PEN SUBQ SCH ×4 (09:14→20:09)
[2018-04-19] MEDS: BRIMONIDINE 0.15% OPHTH DROPS 5 ML EACHEYE SCH ×2 (09:15→21:05)
[2018-04-19] MEDS: AMIODARONE 200 MG TABLET PO SCH (09:15)
[2018-04-19] MEDS: TIMOLOL 0.5% OPHTH DROPS EACHEYE SCH ×2 (09:16→20:11)
[2018-04-19] MEDS: DORZOLAMIDE 2% OPHTH DROPS EACHEYE SCH ×2 (09:16→20:07)
[2018-04-19] MEDS: CEFEPIME 2 GM in SODIUM CHLORIDE 0.9% MINIBAG 100 ML IV SCH ×2 (09:16→16:31)
[2018-04-19] MEDS: POLYETHYLENE GLYCOL 3350 17 GM PACKET PO SCH (09:17)
[2018-04-19] MEDS ORDERED: IOPAMIDOL-300 100 ML VIAL ONE (10:00)
[2018-04-19] MEDS ORDERED: IOPAMIDOL-300 100 ML VIAL IVP ONE (10:15)
--- NOTE | 2018-04-19 10:29 | CT Report ---
Procedure Date: 04/19/2018 Accession Number: [id number] / [id number] Procedure: CT - Chest W/ CPT Code: FULL RESULT: EXAM: Chest W/ DATE: 04/19/2018 10:13 AM CLINICAL HISTORY: SOB COMPARISON: Chest x-ray 04/18/2018 TECHNIQUE: Routine helical CT imaging was performed through the chest. IV contrast: 80 mL Isovue 300 Reconstructions: Coronal and sagittal. In accordance with CT protocol optimization, one or more of the following dose reduction techniques were utilized for this exam: automated exposure control, adjustment of mA and/or KV based on patient size, or use of iterative reconstructive technique. FINDINGS: Lungs/Pleura: There is a moderate right pleural effusion present, with basilar infiltrates. The left lung is clear. The aerated portions of the right lung appear unremarkable. Mediastinum: Normal. No adenopathy or masses. The heart and great vessels are normal. Bones: Unremarkable. Visualized Abdomen: Unremarkable. Other: None. IMPRESSION: Moderate right effusion and basilar infiltrates. RADIA
[2018-04-19] MEDS: SODIUM CHLORIDE FLUSH 0.9% 10 ML SYRINGE IVP PRN (12:55)
[2018-04-19] MEDS ORDERED: WARFARIN 2.5 MG TABLET PO SCH (14:00)
[2018-04-19] MEDS ORDERED: FUROSEMIDE 40 MG TABLET PO SCH (16:00)
--- NOTE | 2018-04-19 16:20 | PROVIDER PROGRESS NOTE ---
Subjective - Prog Note Date Prog Note Date: 04/19/18 - Subjective Pt reports feeling: Improved Subjective: pt report his breath is better. No fever, chill, CP. pt report he has dry cough for more than a month. Pt had Lisinopril for long time. pt had hx of smoking, and hx of Prostate Cancer. CT of chest is ordered. Current Medications - Current Medications Current Medications: Active Medications Amiodarone HCl (Pacerone) 100 mg PO DAILY [facility] Last Admin: 04/19/18 09:15 Dose: 100 mg Atorvastatin Calcium (Lipitor) 10 mg PO QPM [facility] Brimonidine Tartrate (Alphagan P 0.15% Ophth Drops) 1 drops EACHEYE BID [facility] Last Admin: 04/19/18 09:15 Dose: 1 drops Dorzolamide HCl (Trusopt 2% Ophth Drops) 1 drops EACHEYE BID [facility] Last Admin: 04/19/18 09:16 Dose: 1 drops Doxazosin Mesylate (Cardura) 4 mg PO QPM [facility] Furosemide (Lasix) 40 mg PO 1600 [facility] Furosemide (Lasix Inj 40 Mg Vial) 40 mg IVP DAILY [facility] Cefepime HCl 2 gm/ Sodium (Chloride) 100 mls @ 200 mls/hr IV Q8H [facility] Last Infusion: 04/19/18 09:46 Dose: Infused Insulin Aspart (Novolog) 1 - 5 unit SUBQ 0800,1200,1700,2100 TAMIR PRN Reason: Protocol Last Admin: 04/19/18 12:51 Dose: 3 unit Insulin Glargine (Lantus Solostar) 10 unit SUBQ QPM [facility] Last Admin: 04/18/18 21:23 Dose: 10 unit Levalbuterol HCl (Xopenex) 1.25 mg INH Q4H PRN PRN Reason: Shortness of Air/Wheezing Last Admin: 04/19/18 00:45 Dose: 1.25 mg Levalbuterol HCl (Xopenex) 1.25 mg INH RTTID [facility] Last Admin: 04/19/18 13:34 Dose: 1.25 mg Loratadine (Claritin) 10 mg PO DAILY [facility] Metoprolol Tartrate (Lopressor Inj) 5 mg IVP Q6HR [facility] Last Admin: 04/19/18 12:51 Dose: 5 mg Multivitamins (Theragran) 1 tab PO DAILYWM [facility] Pantoprazole Sodium (Protonix) 40 mg PO QDAC [facility] Last Admin: 04/19/18 06:16 Dose: 40 mg Polyethylene Glycol (Miralax) 17 gm PO DAILY [facility] Last Admin: 04/19/18 09:17 Dose: 17 gm Prednisone (Deltasone) 40 mg PO DAILYWM [facility] Sodium Chloride (Normal Saline Flush 0.9%) 10 ml IVP PRN PRN PRN Reason: NEEDED PER PROVIDER ORDERS Last Admin: 04/19/18 12:55 Dose: 10 ml Sodium Chloride (Normal Saline Flush 0.9%) 10 ml IVP 0100,0900,1700 [facility] Last Admin: 04/19/18 13:41 Dose: Not Given Timolol Maleate (Timoptic 0.5% Ophth Drops) 1 drops EACHEYE BID [facility] Last Admin: 04/19/18 09:16 Dose: 1 drops Lisinopril 10 mg PO DAILY 08/11/13 Loratadine [Claritin] 10 mg PO DAILY 08/11/13 Simvastatin 20 mg PO QPM 08/11/13 Brimonidine 0.15% Ophth Drops [Alphagan P 0.15% Ophth Drops] 1 drops EACHEYE BID 08/13/15 Dorzolamide 2% Ophth Drops [Trusopt 2% Ophth Drops] 1 drops EACHEYE BID Doxazosin Mesylate 4 mg PO QPM 08/13/15 Magnesium Oxide 500 mg PO DAILY 08/13/15 Multivitamin [One-A-Day Essential] 1 tab PO DAILY 08/13/15 Sulfasalazine [Sulfazine] 1,500 mg PO 0800,1600 08/13/15 Warfarin [Coumadin] 2.5 mg PO TUTHSA@1400 12/01/16 Amiodarone [Pacerone] 100 mg PO DAILY 04/18/18 Furosemide [Lasix] 40 mg PO 1600 04/18/18 Metformin HCl [Metformin HCl ER] 500 mg PO DAILY 04/18/18 Pantoprazole [Protonix] 40 mg PO QDAC 04/18/18 Potassium Chloride [K-Dur] 20 meq PO BIDWM 04/18/18 Timolol 0.5% Ophth Drops [Timoptic 0.5% Ophth Drops] 1 drops EACHEYE BID 06/25/ 18 Warfarin [Coumadin] 1.25 mg PO SUMOWEFR@1400 04/18/18 Objective - Vital Signs/Intake & Output Reviewed Vital Signs: Yes Vital Signs: Vital Signs x48h Temp Pulse Pulse Resp BP BP Pulse Ox 04/19/18 15:51 36.6 C 111 H 24 137/59 H 94 04/19/18 13:34 106 H 18 04/19/18 12:51 130/59 L 04/19/18 12:09 36.6 C 110 H 16 133/69 H 95 Intake & Output: Intake & Output 04/16/18 04/17/18 04/18/18 04/19/18 23:59 23:59 23:59 23:59 Intake Total 2910 2642.000 Output Total 725 200 Balance 2185 2442.000 - Objective General Appearance: positive: No acute distress, Alert. negative: Lethargic Eyes Bilateral: positive: Normal inspection, PERRL, No lid inflammation, Conjunctivae nml ENT: positive: ENT inspection nml, Pharynx nml, No signs of dehydration. negative: Purulent nasal drainage, Pharyngeal erythema, Oral lesions Neck: positive: Nml inspection, Thyroid nml, No JVD, Trachea midline. negative : Thyromegaly, Lymphadenopathy (R), Lymphadenopathy (L), Stiff neck, Carotid bruit, Swelling/bruising, Tracheal deviation Respiratory: positive: Chest non-tender, No respiratory distress, Rhonchi ( rhonchi at right basilar). negative: Wheezes, Rales Cardiovascular: positive: Regular rate & rhythm, No murmur, No gallop. negative : Irregularly irregular, Extrasystoles, Tachycardia, Bradycardia, JVD present, Systolic murmur, Diastolic murmur Peripheral Pulses: 2+ Radial (R), 2+ Radial (L), 2+ Dorsalis pedis (R), 2+ Dorsalis pedis (L) Abdomen: positive: Non-tender, No organomegaly, Nml bowel sounds, No distention. negative: Tenderness, Guarding, Rebound Back: positive: Nml inspection. negative: CVA tenderness (R), CVA tenderness (L ) Skin: positive: Color nml, No rash, Warm, Dry. negative: Cyanosis, Diaphoresis , Pallor Extremities: positive: Non-tender, Full ROM, Nml appearance. negative: Calf tenderness, Joint swelling, Diana's sign/cords Neurologic/Psychiatric: positive: Oriented x3, Motor nml, Sensation nml, Mood/ affect nml. negative: Weakness, Sensory loss, Facial droop, Slurred/abnml speech, Depressed mood/affect - Lab Results Fish Bones: 04/19/18 06:03 04/19/18 06:03 Other Labs: Lab Results x24hrs 04/19/18 04/19/18 04/19/18 Range/Units 11:56 08:18 07:35 WBC (4.8-10.8) x10^3/uL RBC (4.70-6.10) 10^6/uL Hgb (14.0-18.0) g/dL Hct (42.0-52.0) % MCV (80.0-94.0) fL MCH (27.0-31.0) pg MCHC (32.0-36.0) g/dL RDW (12.0-15.0) % Plt Count (130-450) 10^3/uL MPV (7.4-11.4) fL Neut # (Auto) (1.5-6.6) 10^3/uL Lymph # (Auto) (1.5-3.5) 10^3/uL [place] # (Auto) (0.0-1.0) 10^3/uL Eos # (Auto) (0.0-0.7) 10^3/uL Baso # (Auto) (0.0-0.1) 10^3/uL Absolute Nucleated RBC x10^3/uL Nucleated RBC % /100WBC PT 59.0 H (9.9-12.6) secs INR 5.6 H* (0.8-1.2) Sodium (135-145) mmol/L Potassium (3.5-5.0) mmol/L Chloride (101-111) mmol/L Carbon Dioxide (21-32) mmol/L Anion Gap (6-13) BUN (6-20) mg/dL Creatinine (0.6-1.2) mg/dL Estimated GFR (MDRD) (>89) Glucose (70-100) mg/dL POC Whole Bld Glucose 282 H 175 H (70 - 100) mg/dL Glycated Hemoglobin (4.6-6.2) % Estim Average Glucose (70-100) Lactic Acid (0.5-2.2) mmol/L Calcium (8.5-10.3) mg/dL Magnesium (1.7-2.8) mg/dL Total Bilirubin (0.2-1.0) mg/dL GGT (8-55) IU/L AST (10-42) IU/L ALT (10-60) IU/L Alkaline Phosphatase (42-121) IU/L B-Natriuretic Peptide (5-100) pg/mL Total Protein (6.7-8.2) g/dL Albumin (3.2-5.5) g/dL Globulin (2.1-4.2) g/dL Albumin/Globulin Ratio (1.0-2.2) 04/19/18 04/19/18 04/19/18 Range/Units 06:03 06:03 06:03 WBC (4.8-10.8) x10^3/uL RBC (4.70-6.10) 10^6/uL Hgb (14.0-18.0) g/dL Hct (42.0-52.0) % MCV (80.0-94.0) fL MCH (27.0-31.0) pg MCHC (32.0-36.0) g/dL RDW (12.0-15.0) % Plt Count (130-450) 10^3/uL MPV (7.4-11.4) fL Neut # (Auto) (1.5-6.6) 10^3/uL Lymph # (Auto) (1.5-3.5) 10^3/uL [place] # (Auto) (0.0-1.0) 10^3/uL Eos # (Auto) (0.0-0.7) 10^3/uL Baso # (Auto) (0.0-0.1) 10^3/uL Absolute Nucleated RBC x10^3/uL Nucleated RBC % /100WBC PT (9.9-12.6) secs INR (0.8-1.2) Sodium (135-145) mmol/L Potassium (3.5-5.0) mmol/L Chloride (101-111) mmol/L Carbon Dioxide (21-32) mmol/L Anion Gap (6-13) BUN (6-20) mg/dL Creatinine (0.6-1.2) mg/dL Estimated GFR (MDRD) (>89) Glucose (70-100) mg/dL POC Whole Bld Glucose (70 - 100) mg/dL Glycated Hemoglobin 5.8 (4.6-6.2) % Estim Average Glucose 120 H (70-100) Lactic Acid 0.8 (0.5-2.2) mmol/L Calcium (8.5-10.3) mg/dL Magnesium (1.7-2.8) mg/dL Total Bilirubin (0.2-1.0) mg/dL GGT (8-55) IU/L AST (10-42) IU/L ALT (10-60) IU/L Alkaline Phosphatase (42-121) IU/L B-Natriuretic Peptide 386 H (5-100) pg/mL Total Protein (6.7-8.2) g/dL Albumin (3.2-5.5) g/dL Globulin (2.1-4.2) g/dL Albumin/Globulin Ratio (1.0-2.2) 04/19/18 04/19/18 04/18/18 Range/Units 06:03 06:03 20:55 WBC 31.1 H (4.8-10.8) x10^3/uL RBC 3.50 L (4.70-6.10) 10^6/uL Hgb 10.0 L (14.0-18.0) g/dL Hct 32.0 L (42.0-52.0) % MCV 91.5 (80.0-94.0) fL MCH 28.5 (27.0-31.0) pg MCHC 31.2 L (32.0-36.0) g/dL RDW 16.6 H (12.0-15.0) % Plt Count 372 (130-450) 10^3/uL MPV 8.0 (7.4-11.4) fL Neut # (Auto) 29.0 H (1.5-6.6) 10^3/uL Lymph # (Auto) 0.5 L (1.5-3.5) 10^3/uL [place] # (Auto) 1.5 H (0.0-1.0) 10^3/uL Eos # (Auto) 0.0 (0.0-0.7) 10^3/uL Baso # (Auto) 0.0 (0.0-0.1) 10^3/uL Absolute Nucleated RBC 0.01 x10^3/uL Nucleated RBC % 0.0 /100WBC PT (9.9-12.6) secs INR (0.8-1.2) Sodium 133 L (135-145) mmol/L Potassium 5.0 (3.5-5.0) mmol/L Chloride 99 L (101-111) mmol/L Carbon Dioxide 26 (21-32) mmol/L Anion Gap 8.0 (6-13) BUN 27 H (6-20) mg/dL Creatinine 1.0 (0.6-1.2) mg/dL Estimated GFR (MDRD) 72 L (>89) Glucose 179 H (70-100) mg/dL POC Whole Bld Glucose 197 H (70 - 100) mg/dL Glycated Hemoglobin (4.6-6.2) % Estim Average Glucose (70-100) Lactic Acid (0.5-2.2) mmol/L Calcium 8.5 (8.5-10.3) mg/dL Magnesium 1.8 (1.7-2.8) mg/dL Total Bilirubin 0.4 (0.2-1.0) mg/dL GGT 36 (8-55) IU/L AST 21 (10-42) IU/L ALT 20 (10-60) IU/L Alkaline Phosphatase 92 (42-121) IU/L B-Natriuretic Peptide (5-100) pg/mL Total Protein 6.8 (6.7-8.2) g/dL Albumin 2.8 L (3.2-5.5) g/dL Globulin 4.0 (2.1-4.2) g/dL Albumin/Globulin Ratio 0.7 L (1.0-2.2) 04/18/18 Range/Units 16:45 WBC (4.8-10.8) x10^3/uL RBC (4.70-6.10) 10^6/uL Hgb (14.0-18.0) g/dL Hct (42.0-52.0) % MCV (80.0-94.0) fL MCH (27.0-31.0) pg MCHC (32.0-36.0) g/dL RDW (12.0-15.0) % Plt Count (130-450) 10^3/uL MPV (7.4-11.4) fL Neut # (Auto) (1.5-6.6) 10^3/uL Lymph # (Auto) (1.5-3.5) 10^3/uL [place] # (Auto) (0.0-1.0) 10^3/uL Eos # (Auto) (0.0-0.7) 10^3/uL Baso # (Auto) (0.0-0.1) 10^3/uL Absolute Nucleated RBC x10^3/uL Nucleated RBC % /100WBC PT (9.9-12.6) secs INR (0.8-1.2) Sodium (135-145) mmol/L Potassium (3.5-5.0) mmol/L Chloride (101-111) mmol/L Carbon Dioxide (21-32) mmol/L Anion Gap (6-13) BUN (6-20) mg/dL Creatinine (0.6-1.2) mg/dL Estimated GFR (MDRD) (>89) Glucose (70-100) mg/dL POC Whole Bld Glucose 143 H (70 - 100) mg/dL Glycated Hemoglobin (4.6-6.2) % Estim Average Glucose (70-100) Lactic Acid (0.5-2.2) mmol/L Calcium (8.5-10.3) mg/dL Magnesium (1.7-2.8) mg/dL Total Bilirubin (0.2-1.0) mg/dL GGT (8-55) IU/L AST (10-42) IU/L ALT (10-60) IU/L Alkaline Phosphatase (42-121) IU/L B-Natriuretic Peptide (5-100) pg/mL Total Protein (6.7-8.2) g/dL Albumin (3.2-5.5) g/dL Globulin (2.1-4.2) g/dL Albumin/Globulin Ratio (1.0-2.2) ABX Reporting Has patient been on IV antibiotics over the past 48 hours?: Yes Assessment/Plan - Problem List (1) Pneumonia Impression: Conclusion/Plan: 04/19 pt report his breath is better, but WBC is still 31,000, although pt had Solu-metrol. cefeim IV tid follow up blood culture The patient presented to the ED with a right chest pain/tightness caused by coughing, shortness of breath, hypoxia with oxygen saturation ~85% on room air. WBC count was grossly elevated at 32.8. The patient denies recent fever, chills, but has had profound fatigue and mildly increased AMS. Plan: Continue IV antibiotics, low dose IV steroids and nebulizers. Await sputum sample. (2) CKD (chronic kidney disease) stage 3, GFR 30-59 ml/min Conclusion/Plan: improved, stage 2 continue hydration, avoid fluid over-loaded The patient had an elevated creatinine of 1.6 upon admission. (3) Atrial fibrillation Conclusion/Plan: 04/19 INR 5.6, continue hold Coumadin continue PT/INR order tele, pt has HR 110. pt had hx of afib, will order EKG The patient has a long-standing history of atrial fib/flutter. Previously, he was on diltiazem, but this has been discontinued. The patient has kept a log of B/Ps and heart rates that show a progressive elevation from 80's in October/ November up to greater than 100 for the last 2 full months. Plan: Continue amioderone daily dose. IV metoprolol Q6 hours, monitor on tele and routine vital signs. (4) Dehydration Conclusion/Plan: hold IVF, pt had moderate pleural effusion. pt had improved renal function. IVC measurements from the ED show a deficit, about 1 Liter deficient. The patient admits to poor PO intake and has dry mucous membranes upon exam. Plan: Gentle IVFs over night and monitor vital signs. (5) Chronic anticoagulation Conclusion/Plan: continue to hold Coumadin, daily check PT/INR The patient is prescribed Coumadin and has an elevated INR of 5.7 upon admission. Evening dose was held and daily INR's were ordered. Plan: Continue to monitor with a goal of INR between 2-3. (6) Tachycardia Conclusion/Plan: 04/19pt had pneumonia, and with tachycardia order tele, EKG, continue PRN IV metoprolol will consider Metoprolol succinate if tachycardia continue The patient is noted to be ~120-130 in a telemetry review. I have ordered an echocardiogram that shows mild mitral stenosis, a normal EF of 65-70%, and pulmonary HTN with an RVSP at rest of 57 mmHg. Plan: Continue IV metoprolol scheduled Q6 hours, monitor VS. (7) Pulmonary hypertension Conclusion/Plan: Preliminary Echo results show an RVSP at rest of 57 mmHg, causing moderate to severe pulmonary HTN. The clinical picture shows this as he has a large abdominal girth and BLE edema. The treatment of choice is Spironolactone after this acute illness. Plan: Continue to treat acute illness and start Spironolactone late day #2, if the patient seems more hydrated. (8) Diabetes mellitus type 2 in obese Conclusion/Plan: The patient takes Metformin at home and has been diabetic for several years. He states that he does not check his blood glucose levels at home. Plan: Hold metformin, start low dose Lantus, SSI. (9) right moderate pleural effusion CT of chest reveals right moderate pleural effusion and bilateral basiliar pneumonia. will medical management now with Lasix IV to see pt if improved on O2 sats and cough, will consider thoracentesis if continue to have symptom. Qualifiers: Pneumonia type: due to methicillin-sensitive Staphylococcus aureus (MSSA) Laterality: right Lung location: lower lobe of lung Qualified Code(s): J15.211 - Pneumonia due to Methicillin susceptible Staphylococcus aureus
[2018-04-19] MEDS ORDERED: IPRATROPIUM/ALBUTEROL 3 ML NEB INH PRN (16:34)
[2018-04-19] MEDS ORDERED: predniSONE 20 MG TABLET PO SCH (17:00)
[2018-04-19] MEDS: DOXAZOSIN 4 MG TABLET PO SCH (20:07)
[2018-04-19] MEDS: ATORVASTATIN 10 MG TABLET PO SCH (20:07)
[2018-04-19] MEDS: INSULIN GLARGINE 300 UNIT/3 ML PEN SUBQ SCH (20:10)
[2018-04-20] MEDS: SODIUM CHLORIDE FLUSH 0.9% 10 ML SYRINGE IVP PRN ×3 (00:13→11:38)
[2018-04-20] MEDS: CEFEPIME 2 GM in SODIUM CHLORIDE 0.9% MINIBAG 100 ML IV SCH ×3 (00:52→17:41)
[2018-04-20] MEDS: SODIUM CHLORIDE FLUSH 0.9% 10 ML SYRINGE IVP SCH ×3 (01:53→17:41)
[2018-04-20 06:03] LABS: BASOPHILS % (AUTO) 0.1 %; HGB - HEMOGLOBIN 9.5 g/dL (14.0-18.0); LYMPHOCYTES % (AUTO) 2.8 %; MEAN CORPUSCULAR HEMOGLOBIN 28.7 pg (27.0-31.0); MEAN CORPUSCULAR HGB CONC 31.5 g/dL (32.0-36.0); MEAN CORPUSCULAR VOLUME 91.3 fL (80.0-94.0); MONOCYTES % (AUTO) 6.4 %; NEUTROPHILS % (AUTO) 90.7 %; PLT - PLATELET COUNT 376 10^3/uL (130-450); RED BLOOD COUNT 3.31 10^6/uL (4.70-6.10); RED CELL DISTRIBUTION WIDTH 16.5 % (12.0-15.0); WHITE BLOOD COUNT 30.5 x10^3/uL (4.8-10.8)
[2018-04-20 06:04] LABS: INR 2.8 (0.8-1.2); PT - PROTHROMBIN TIME 30.1 secs (9.9-12.6)
[2018-04-20 06:10] LABS: ABNORMAL LYMPHS % (MANUAL) 0 %
[2018-04-20 06:15] LABS: ALBUMIN 2.4 g/dL (3.2-5.5); ALBUMIN/GLOBULIN RATIO 0.5 (1.0-2.2); BILIRUBIN,TOTAL 0.4 mg/dL (0.2-1.0); CALCIUM 8.5 mg/dL (8.5-10.3); CREATININE 1.1 mg/dL (0.6-1.2); MAGNESIUM 1.8 mg/dL (1.7-2.8); TOTAL PROTEIN 6.9 g/dL (6.7-8.2)
[2018-04-20] MEDS: METOPROLOL 5 MG/5 ML VIAL IVP SCH ×3 (06:15→17:41)
[2018-04-20 06:42] LABS: BAND NEUTROPHILS % (MANUAL) 5 %; DIFFERENTIAL COMMENT MANUAL DIFFERENTIAL; LYMPHOCYTES # (MANUAL) 2.1 10^3/uL (1.5-3.5); LYMPHOCYTES % (MANUAL) 7 %; MONOCYTES # (MANUAL) 1.5 10^3/uL (0.0-1.0); NEUTROPHILS # (MANUAL) 26.8 10^3/uL (1.5-6.6); NEUTROPHILS % (MANUAL) 83 %; PLATELET ESTIMATE, MANUAL NORMAL (130-450,000) (NORMAL); RBC MORPHOLOGY (MULTIPLE) NORMAL APPEARANCE (NORMAL)
[2018-04-20] MEDS: PANTOPRAZOLE 40 MG TABLET PO SCH (06:50)
[2018-04-20] MEDS: INSULIN ASPART 300 UNIT/3 ML PEN SUBQ SCH ×4 (07:56→20:36)
[2018-04-20] MEDS ORDERED: predniSONE 20 MG TABLET PO SCH (08:00)
[2018-04-20] MEDS: AMIODARONE 200 MG TABLET PO SCH (08:02)
[2018-04-20] MEDS: LORATADINE 10 MG TABLET PO SCH (08:02)
[2018-04-20] MEDS: MULTIVITAMIN TABLET PO SCH (08:03)
[2018-04-20] MEDS: FUROSEMIDE 40 MG/4 ML VIAL IVP SCH (08:03)
[2018-04-20] MEDS: DORZOLAMIDE 2% OPHTH DROPS EACHEYE SCH ×2 (08:04→20:33)
[2018-04-20] MEDS: BRIMONIDINE 0.15% OPHTH DROPS 5 ML EACHEYE SCH ×2 (08:04→20:34)
[2018-04-20] MEDS: TIMOLOL 0.5% OPHTH DROPS EACHEYE SCH ×2 (08:04→20:34)
[2018-04-20] MEDS: POLYETHYLENE GLYCOL 3350 17 GM PACKET PO SCH (08:05)
[2018-04-20] MEDS ORDERED: WARFARIN 2.5 MG TABLET PO SCH ×2 (14:00→15:00)
--- NOTE | 2018-04-20 14:34 | PROVIDER PROGRESS NOTE ---
Subjective - Prog Note Date Prog Note Date: 04/20/18 - Subjective Pt reports feeling: Improved Subjective: pt report no fever, chill, CP, or SOB. he feel good. Current Medications - Current Medications Current Medications: Active Medications Amiodarone HCl (Pacerone) 100 mg PO DAILY [facility] Last Admin: 04/20/18 08:02 Dose: 100 mg Atorvastatin Calcium (Lipitor) 10 mg PO QPM [facility] Last Admin: 04/19/18 20:07 Dose: 10 mg Brimonidine Tartrate (Alphagan P 0.15% Ophth Drops) 1 drops EACHEYE BID [facility] Last Admin: 04/20/18 08:04 Dose: 1 drops Dorzolamide HCl (Trusopt 2% Ophth Drops) 1 drops EACHEYE BID [facility] Last Admin: 04/20/18 08:04 Dose: 1 drops Doxazosin Mesylate (Cardura) 4 mg PO QPM [facility] Last Admin: 04/19/18 20:07 Dose: 4 mg Furosemide (Lasix Inj 40 Mg Vial) 40 mg IVP DAILY [facility] Last Admin: 04/20/18 08:03 Dose: 40 mg Cefepime HCl 2 gm/ Sodium (Chloride) 100 mls @ 200 mls/hr IV Q8H [facility] Last Infusion: 04/20/18 08:33 Dose: Infused Insulin Aspart (Novolog) 2 - 10 unit SUBQ 0800,1200,1700,2100 [facility] PRN Reason: Protocol Last Admin: 04/20/18 11:34 Dose: 6 unit Insulin Glargine (Lantus Solostar) 10 unit SUBQ QPM [facility] Last Admin: 04/19/18 20:10 Dose: 10 unit Levalbuterol HCl (Xopenex) 1.25 mg INH Q4H PRN PRN Reason: Shortness of Air/Wheezing Last Admin: 04/19/18 00:45 Dose: 1.25 mg Loratadine (Claritin) 10 mg PO DAILY [facility] Last Admin: 04/20/18 08:02 Dose: 10 mg Metoprolol Tartrate (Lopressor Inj) 5 mg IVP Q6HR [facility] Last Admin: 04/20/18 11:37 Dose: 5 mg Multivitamins (Theragran) 1 tab PO DAILYWM [facility] Last Admin: 04/20/18 08:03 Dose: 1 tab Pantoprazole Sodium (Protonix) 40 mg PO QDAC [facility] Last Admin: 04/20/18 06:50 Dose: 40 mg Polyethylene Glycol (Miralax) 17 gm PO DAILY [facility] Last Admin: 04/20/18 08:05 Dose: 17 gm Prednisone (Deltasone) 30 mg PO DAILYWM [facility] Last Admin: 04/20/18 08:02 Dose: 30 mg Sodium Chloride (Normal Saline Flush 0.9%) 10 ml IVP PRN PRN PRN Reason: NEEDED PER PROVIDER ORDERS Last Admin: 04/20/18 11:38 Dose: 10 ml Sodium Chloride (Normal Saline Flush 0.9%) 10 ml IVP 0100,0900,1700 [facility] Last Admin: 04/20/18 08:03 Dose: 10 ml Timolol Maleate (Timoptic 0.5% Ophth Drops) 1 drops EACHEYE BID [facility] Last Admin: 04/20/18 08:04 Dose: 1 drops Warfarin Sodium (Coumadin) 1.25 mg PO SUMOWEFR@1400 [facility] Warfarin Sodium (Coumadin) 2.5 mg PO TUTHSA@1400 [facility] Lisinopril 10 mg PO DAILY 08/11/13 Loratadine [Claritin] 10 mg PO DAILY 08/11/13 Simvastatin 20 mg PO QPM 08/11/13 Brimonidine 0.15% Ophth Drops [Alphagan P 0.15% Ophth Drops] 1 drops EACHEYE BID 08/13/15 Dorzolamide 2% Ophth Drops [Trusopt 2% Ophth Drops] 1 drops EACHEYE BID Doxazosin Mesylate 4 mg PO QPM 08/13/15 Magnesium Oxide 500 mg PO DAILY 08/13/15 Multivitamin [One-A-Day Essential] 1 tab PO DAILY 08/13/15 Sulfasalazine [Sulfazine] 1,500 mg PO 0800,1600 08/13/15 Warfarin [Coumadin] 2.5 mg PO TUTHSA@1400 12/01/16 Amiodarone [Pacerone] 100 mg PO DAILY 04/18/18 Furosemide [Lasix] 40 mg PO 1600 04/18/18 Metformin HCl [Metformin HCl ER] 500 mg PO DAILY 04/18/18 Pantoprazole [Protonix] 40 mg PO QDAC 04/18/18 Potassium Chloride [K-Dur] 20 meq PO BIDWM 04/18/18 Timolol 0.5% Ophth Drops [Timoptic 0.5% Ophth Drops] 1 drops EACHEYE BID Warfarin [Coumadin] 1.25 mg PO SUMOWEFR@1400 04/18/18 Objective - Vital Signs/Intake & Output Reviewed Vital Signs: Yes Vital Signs: Vital Signs x48h Temp Pulse Resp BP BP Pulse Ox 04/20/18 11:56 36.5 C 108 H 18 129/79 95 04/20/18 11:55 102 H 124/69 04/20/18 11:50 103 H 109/68 04/20/18 11:45 99 120/65 04/20/18 11:37 139/68 H 04/20/18 08:00 36.0 C L 100 18 134/72 H 96 04/20/18 07:15 99 18 140/73 H 95 04/20/18 07:00 99 18 135/71 H 95 04/20/18 06:45 98 18 131/68 H 95 Intake & Output: Intake & Output 04/17/18 04/18/18 04/19/18 04/20/18 23:59 23:59 23:59 23:59 Intake Total 2910 3040.000 500 Output Total 725 200 Balance 2185 2840.000 500 - Objective General Appearance: positive: No acute distress, Alert. negative: Lethargic Eyes Bilateral: positive: Normal inspection, PERRL, No lid inflammation, Conjunctivae nml ENT: positive: ENT inspection nml, Pharynx nml, No signs of dehydration. negative: Purulent nasal drainage, Pharyngeal erythema, Oral lesions Neck: positive: Nml inspection, Thyroid nml, No JVD, Trachea midline. negative : Thyromegaly, Lymphadenopathy (R), Lymphadenopathy (L), Stiff neck, Carotid bruit, Swelling/bruising, Tracheal deviation Respiratory: positive: Chest non-tender, No respiratory distress, Breath sounds nml. negative: Wheezes, Rales, Rhonchi Cardiovascular: positive: Regular rate & rhythm, No murmur, No gallop. negative : Irregularly irregular, Extrasystoles, Tachycardia, Bradycardia, JVD present, Systolic murmur, Diastolic murmur Peripheral Pulses: 2+ Radial (R), 2+ Radial (L), 2+ Dorsalis pedis (R), 2+ Dorsalis pedis (L) Abdomen: positive: Non-tender, No organomegaly, Nml bowel sounds, No distention. negative: Tenderness, Guarding, Rebound Back: positive: Nml inspection. negative: CVA tenderness (R), CVA tenderness (L ) Skin: positive: Color nml, No rash, Warm, Dry. negative: Cyanosis, Diaphoresis , Pallor Extremities: positive: Non-tender, Full ROM, Nml appearance. negative: Calf tenderness, Joint swelling, Diana's sign/cords Neurologic/Psychiatric: positive: Oriented x3, Motor nml, Sensation nml, Mood/ affect nml. negative: Weakness, Sensory loss, Facial droop, Slurred/abnml speech, Depressed mood/affect - Lab Results Fish Bones: 04/20/18 05:27 04/20/18 05:27 Other Labs: Lab Results x24hrs 04/20/18 04/20/18 04/20/18 Range/Units 11:10 07:34 05:27 WBC (4.8-10.8) x10^3/uL RBC (4.70-6.10) 10^6/uL Hgb (14.0-18.0) g/dL Hct (42.0-52.0) % MCV (80.0-94.0) fL MCH (27.0-31.0) pg MCHC (32.0-36.0) g/dL RDW (12.0-15.0) % Plt Count (130-450) 10^3/uL MPV (7.4-11.4) fL Neut # (Auto) Lymph # (Auto) Thayer # (Auto) Eos # (Auto) Baso # (Auto) Absolute Nucleated RBC Total Counted Band Neuts % (Manual) (0 - 10) % Abnorm Lymph % (Manual) % Nucleated RBC % Neutrophils # (Manual) (1.5-6.6) 10^3/uL Lymphocytes # (Manual) (1.5-3.5) 10^3/uL Monocytes # (Manual) (0.0-1.0) 10^3/uL Eosinophils # (Manual) (0-0.7) 10^3/uL Basophils # (Manual) (0-0.1) 10^3/uL Differential Comment Platelet Estimate (NORMAL) RBC Morph Micro Appear (NORMAL) PT 30.1 H (9.9-12.6) secs INR 2.8 H (0.8-1.2) Sodium (135-145) mmol/L Potassium (3.5-5.0) mmol/L Chloride (101-111) mmol/L Carbon Dioxide (21-32) mmol/L Anion Gap (6-13) BUN (6-20) mg/dL Creatinine (0.6-1.2) mg/dL Estimated GFR (MDRD) (>89) Glucose (70-100) mg/dL POC Whole Bld Glucose 266 H 229 H (70 - 100) mg/dL Calcium (8.5-10.3) mg/dL Magnesium (1.7-2.8) mg/dL Total Bilirubin (0.2-1.0) mg/dL AST (10-42) IU/L ALT (10-60) IU/L Alkaline Phosphatase (42-121) IU/L B-Natriuretic Peptide (5-100) pg/mL Total Protein (6.7-8.2) g/dL Albumin (3.2-5.5) g/dL Globulin (2.1-4.2) g/dL Albumin/Globulin Ratio (1.0-2.2) 04/20/18 04/20/18 04/20/18 Range/Units 05:27 05:27 05:27 WBC 30.5 H (4.8-10.8) x10^3/uL RBC 3.31 L (4.70-6.10) 10^6/uL Hgb 9.5 L (14.0-18.0) g/dL Hct 30.3 L (42.0-52.0) % MCV 91.3 (80.0-94.0) fL MCH 28.7 (27.0-31.0) pg MCHC 31.5 L (32.0-36.0) g/dL RDW 16.5 H (12.0-15.0) % Plt Count 376 (130-450) 10^3/uL MPV 8.0 (7.4-11.4) fL Neut # (Auto) Not Reportable Lymph # (Auto) Not Reportable Thayer # (Auto) Not Reportable Eos # (Auto) Not Reportable Baso # (Auto) Not Reportable Absolute Nucleated RBC Not Reportable Total Counted 100 Band Neuts % (Manual) 5 (0 - 10) % Abnorm Lymph % (Manual) 0 % Nucleated RBC % Not Reportable Neutrophils # (Manual) 26.8 H (1.5-6.6) 10^3/uL Lymphocytes # (Manual) 2.1 (1.5-3.5) 10^3/uL Monocytes # (Manual) 1.5 H (0.0-1.0) 10^3/uL Eosinophils # (Manual) 0.0 (0-0.7) 10^3/uL Basophils # (Manual) 0.0 (0-0.1) 10^3/uL Differential Comment MANUAL DIFFERENTIAL Platelet Estimate NORMAL (130-450,000) (NORMAL) RBC Morph Micro Appear NORMAL APPEARANCE (NORMAL) PT (9.9-12.6) secs INR (0.8-1.2) Sodium 130 L (135-145) mmol/L Potassium 5.0 (3.5-5.0) mmol/L Chloride 97 L (101-111) mmol/L Carbon Dioxide 26 (21-32) mmol/L Anion Gap 7.0 (6-13) BUN 35 H (6-20) mg/dL Creatinine 1.1 (0.6-1.2) mg/dL Estimated GFR (MDRD) 64 L (>89) Glucose 261 H (70-100) mg/dL POC Whole Bld Glucose (70 - 100) mg/dL Calcium 8.5 (8.5-10.3) mg/dL Magnesium 1.8 (1.7-2.8) mg/dL Total Bilirubin 0.4 (0.2-1.0) mg/dL AST 144 H (10-42) IU/L ALT 94 H (10-60) IU/L Alkaline Phosphatase 131 H (42-121) IU/L B-Natriuretic Peptide 325 H (5-100) pg/mL Total Protein 6.9 (6.7-8.2) g/dL Albumin 2.4 L (3.2-5.5) g/dL Globulin 4.5 H (2.1-4.2) g/dL Albumin/Globulin Ratio 0.5 L (1.0-2.2) 06/26/18 06/26/18 Range/Units 20:03 16:37 WBC (4.8-10.8) x10^3/uL RBC (4.70-6.10) 10^6/uL Hgb (14.0-18.0) g/dL Hct (42.0-52.0) % MCV (80.0-94.0) fL MCH (27.0-31.0) pg MCHC (32.0-36.0) g/dL RDW (12.0-15.0) % Plt Count (130-450) 10^3/uL MPV (7.4-11.4) fL Neut # (Auto) Lymph # (Auto) Thayer # (Auto) Eos # (Auto) Baso # (Auto) Absolute Nucleated RBC Total Counted Band Neuts % (Manual) (0 - 10) % Abnorm Lymph % (Manual) % Nucleated RBC % Neutrophils # (Manual) (1.5-6.6) 10^3/uL Lymphocytes # (Manual) (1.5-3.5) 10^3/uL Monocytes # (Manual) (0.0-1.0) 10^3/uL Eosinophils # (Manual) (0-0.7) 10^3/uL Basophils # (Manual) (0-0.1) 10^3/uL Differential Comment Platelet Estimate (NORMAL) RBC Morph Micro Appear (NORMAL) PT (9.9-12.6) secs INR (0.8-1.2) Sodium (135-145) mmol/L Potassium (3.5-5.0) mmol/L Chloride (101-111) mmol/L Carbon Dioxide (21-32) mmol/L Anion Gap (6-13) BUN (6-20) mg/dL Creatinine (0.6-1.2) mg/dL Estimated GFR (MDRD) (>89) Glucose (70-100) mg/dL POC Whole Bld Glucose 268 H 267 H (70 - 100) mg/dL Calcium (8.5-10.3) mg/dL Magnesium (1.7-2.8) mg/dL Total Bilirubin (0.2-1.0) mg/dL AST (10-42) IU/L ALT (10-60) IU/L Alkaline Phosphatase (42-121) IU/L B-Natriuretic Peptide (5-100) pg/mL Total Protein (6.7-8.2) g/dL Albumin (3.2-5.5) g/dL Globulin (2.1-4.2) g/dL Albumin/Globulin Ratio (1.0-2.2) ABX Reporting Has patient been on IV antibiotics over the past 48 hours?: Yes Assessment/Plan - Problem List (1) Pneumonia Impression: Impression: 04/20, no SOB, fever, chill. 95% Sats 3.5 liter of O2. WBC is 30.5, may be caused by steroid. continue to use Cefepime continue breath treatment O2 supplement as needed continue vital and lab monitor 04/19 pt report his breath is better, but WBC is still 31,000, although pt had Solu-metrol. cefeim IV tid follow up blood culture The patient presented to the ED with a right chest pain/tightness caused by coughing, shortness of breath, hypoxia with oxygen saturation ~85% on room air. WBC count was grossly elevated at 32.8. The patient denies recent fever, chills, but has had profound fatigue and mildly increased AMS. Plan: Continue IV antibiotics, low dose IV steroids and nebulizers. Await sputum sample. (2) CKD (chronic kidney disease) stage 3, GFR 30-59 ml/min Conclusion/Plan: 04/20 stable renal function 04/19 improved, stage 2 continue hydration, avoid fluid over-loaded The patient had an elevated creatinine of 1.6 upon admission. (3) Atrial fibrillation Conclusion/Plan: 04/20 INR 2.7, continue Coumadin daily PT/INR HR is 105 around. continue amiodaronl 04/19 INR 5.6, continue hold Coumadin continue PT/INR order tele, pt has HR 110. pt had hx of afib, will order EKG The patient has a long-standing history of atrial fib/flutter. Previously, he was on diltiazem, but this has been discontinued. The patient has kept a log of B/Ps and heart rates that show a progressive elevation from 80's in October/ November up to greater than 100 for the last 2 full months. Plan: Continue amioderone daily dose. IV metoprolol Q6 hours, monitor on tele and routine vital signs. (4) Dehydration Conclusion/Plan: 04/20pt had improved renal function. Hold IVF for pt had moderate pleural effusion. hold IVF, pt had moderate pleural effusion. pt had improved renal function. IVC measurements from the ED show a deficit, about 1 Liter deficient. The patient admits to poor PO intake and has dry mucous membranes upon exam. Plan: Gentle IVFs over night and monitor vital signs. (5) Chronic anticoagulation Conclusion/Plan: INR 2.8, continue Coumadin continue to hold Coumadin, daily check PT/INR The patient is prescribed Coumadin and has an elevated INR of 5.7 upon admission. Evening dose was held and daily INR's were ordered. Plan: Continue to monitor with a goal of INR between 2-3. (6) Tachycardia Conclusion/Plan: 04/20, HR is around 105. pt had pneumonia, it may be physiological response to respiratory distress. continue tele, vital monitor continue Amiodaronl 04/19pt had pneumonia, and with tachycardia order tele, EKG, continue PRN IV metoprolol will consider Metoprolol succinate if tachycardia continue The patient is noted to be ~120-130 in a telemetry review. I have ordered an echocardiogram that shows mild mitral stenosis, a normal EF of 65-70%, and pulmonary HTN with an RVSP at rest of 57 mmHg. Plan: Continue IV metoprolol scheduled Q6 hours, monitor VS. (7) Pulmonary hypertension Conclusion/Plan: Preliminary Echo results show an RVSP at rest of 57 mmHg, causing moderate to severe pulmonary HTN. The clinical picture shows this as he has a large abdominal girth and BLE edema. The treatment of choice is Spironolactone after this acute illness. Plan: Continue to treat acute illness and start Spironolactone late day #2, if the patient seems more hydrated. (8) Diabetes mellitus type 2 in obese Conclusion/Plan: The patient takes Metformin at home and has been diabetic for several years. He states that he does not check his blood glucose levels at home. Plan: Hold metformin, start low dose Lantus, SSI. (9) right moderate pleural effusion pt had PO Lasix at home, resume replace of IV Lasix 40mg CT of chest reveals right moderate pleural effusion and bilateral basiliar pneumonia. will medical management now with Lasix IV to see pt if improved on O2 sats and cough, will consider thoracentesis if continue to have symptom. (10) lymphocytosis pt has 30.5 WBC, is slight down from yesterday. It may be caused by pneumonia and steroid continue lab monitor, and treat antibiotics, reduce steroid gradually (11) elevated liver enzyme unknown etiology. elevated AST, ALT and Alk slight than yesterday. order US of abdomen, will follow up Qualifiers: Pneumonia type: due to methicillin-sensitive Staphylococcus aureus (MSSA) Laterality: right Lung location: lower lobe of lung Qualified Code(s): J15.211 - Pneumonia due to Methicillin susceptible Staphylococcus aureus
[2018-04-20] MEDS: ATORVASTATIN 10 MG TABLET PO SCH (20:34)
[2018-04-20] MEDS: DOXAZOSIN 4 MG TABLET PO SCH (20:34)
[2018-04-20] MEDS: INSULIN GLARGINE 300 UNIT/3 ML PEN SUBQ SCH (20:37)
[2018-04-21] MEDS: SODIUM CHLORIDE FLUSH 0.9% 10 ML SYRINGE IVP PRN ×3 (00:46→09:39)
[2018-04-21] MEDS: METOPROLOL 5 MG/5 ML VIAL IVP SCH ×2 (00:46→05:57)
[2018-04-21] MEDS: CEFEPIME 2 GM in SODIUM CHLORIDE 0.9% MINIBAG 100 ML IV SCH ×3 (00:50→17:57)
[2018-04-21] MEDS: SODIUM CHLORIDE FLUSH 0.9% 10 ML SYRINGE IVP SCH ×3 (00:51→17:03)
--- NOTE | 2018-04-21 01:03 | Ultrasound Report ---
Procedure Date: 04/20/2018 Accession Number: [id number] / [id number] Procedure: US - Abdomen Limited CPT Code: FULL RESULT: EXAM: ABDOMEN ULTRASOUND LIMITED, RUQ EXAM DATE: 04/20/2018 11:24 PM. CLINICAL HISTORY: Elevated liver enzyme. COMPARISON: None. TECHNIQUE: Real-time scanning was performed with static images obtained. FINDINGS: Liver: Liver parenchyma is heterogeneous and moderately hyperechoic. No discrete liver masses or intrahepatic bile duct dilation. However, evaluation for masses is limited secondary to the echogenicity. 20.2 cm. Main portal vein flow: Hepatopetal. Gallbladder: No stones, sonographic Persaud sign or pericholecystic fluid. The gallbladder wall thickness is prominent measuring up to 5 mm. Biliary System: CBD measures 4 mm. No intrahepatic or extrahepatic ductal dilatation. Right kidney: 13.8 cm. No hydronephrosis is seen. Other: Right-sided effusion is noted. IMPRESSION: 1. Heterogeneous, enlarged and moderately fatty liver. No mass. 2. No sonographic findings concerning for cholelithiasis or acute cholecystitis. Normal common bile duct. [facility]
[2018-04-21 05:58] LABS: BASOPHILS % (AUTO) 0.1 %; EOSINOPHILS % (AUTO) 0.4 %; HGB - HEMOGLOBIN 9.6 g/dL (14.0-18.0); LYMPHOCYTES % (AUTO) 3.7 %; MEAN CORPUSCULAR HEMOGLOBIN 28.7 pg (27.0-31.0); MEAN CORPUSCULAR HGB CONC 31.6 g/dL (32.0-36.0); MEAN CORPUSCULAR VOLUME 90.8 fL (80.0-94.0); MEAN PLATELET VOLUME 7.9 fL (7.4-11.4); MONOCYTES % (AUTO) 10.2 %; NEUTROPHILS % (AUTO) 85.6 %; PLT - PLATELET COUNT 406 10^3/uL (130-450); RED BLOOD COUNT 3.35 10^6/uL (4.70-6.10); RED CELL DISTRIBUTION WIDTH 16.4 % (12.0-15.0)
[2018-04-21] MEDS: PANTOPRAZOLE 40 MG TABLET PO SCH (06:06)
[2018-04-21 06:10] LABS: ABNORMAL LYMPHS % (MANUAL) 0 %
[2018-04-21 06:20] LABS: ALBUMIN 2.5 g/dL (3.2-5.5); ALBUMIN/GLOBULIN RATIO 0.6 (1.0-2.2); BILIRUBIN,TOTAL 0.5 mg/dL (0.2-1.0); CALCIUM 8.8 mg/dL (8.5-10.3); TOTAL PROTEIN 6.9 g/dL (6.7-8.2)
[2018-04-21 06:33] LABS: BAND NEUTROPHILS % (MANUAL) 2 %; DIFFERENTIAL COMMENT MANUAL DIFFERENTIAL; EOSINOPHILS # (MANUAL) 0.2 10^3/uL (0-0.7); LYMPHOCYTES # (MANUAL) 1.4 10^3/uL (1.5-3.5); LYMPHOCYTES % (MANUAL) 6 %; MONOCYTES # (MANUAL) 1.2 10^3/uL (0.0-1.0); MYELOCYTES % (MANUAL) 2 %; NEUTROPHILS # (MANUAL) 19.8 10^3/uL (1.5-6.6); NEUTROPHILS % (MANUAL) 84 %; PLATELET ESTIMATE, MANUAL NORMAL (130-450,000) (NORMAL); RBC MORPHOLOGY (MULTIPLE) NORMAL APPEARANCE (NORMAL)
[2018-04-21] MEDS ORDERED: METOPROLOL SUCCINATE 25 MG TABLET PO SCH (08:00)
[2018-04-21] MEDS: INSULIN ASPART 300 UNIT/3 ML PEN SUBQ SCH ×4 (09:01→21:17)
--- NOTE | 2018-04-21 09:11 | XRAY Report ---
Procedure Date: 04/21/2018 Accession Number: [id number] / [id number] Procedure: XR - Chest 1 View X-Ray CPT Code: 43021 FULL RESULT: EXAM: Chest 1 View X-Ray DATE: 04/21/2018 8:52 AM CLINICAL HISTORY: SOB COMPARISON: CT 04/19/2018, plain film 04/18/2018 TECHNIQUE: Single view of the chest. FINDINGS: Lungs/Pleura: Loculated right pleural effusion and associated airspace disease are stable. The left lung remains clear. Mediastinum: Within exam limitations, cardiomediastinal contour is normal. Other: None. IMPRESSION: Stable loculated right pleural effusion and associated airspace disease. [facility]
[2018-04-21] MEDS: MULTIVITAMIN TABLET PO SCH (09:38)
[2018-04-21] MEDS: LORATADINE 10 MG TABLET PO SCH (09:38)
[2018-04-21] MEDS: AMIODARONE 200 MG TABLET PO SCH (09:38)
[2018-04-21] MEDS: FUROSEMIDE 40 MG/4 ML VIAL IVP SCH (09:38)
[2018-04-21] MEDS: METOPROLOL SUCCINATE 25 MG TABLET PO SCH (09:39)
[2018-04-21] MEDS: LEVALBUTEROL 1.25 MG/3 ML NEB INH PRN (09:50)
[2018-04-21] MEDS ORDERED: MORPHINE 2 MG/ML SYRINGE IVP PRN (10:52)
[2018-04-21] MEDS: POLYETHYLENE GLYCOL 3350 17 GM PACKET PO SCH (11:14)
[2018-04-21] MEDS: DORZOLAMIDE 2% OPHTH DROPS EACHEYE SCH ×2 (11:16→21:16)
[2018-04-21] MEDS: TIMOLOL 0.5% OPHTH DROPS EACHEYE SCH ×2 (11:17→21:16)
[2018-04-21] MEDS: BRIMONIDINE 0.15% OPHTH DROPS 5 ML EACHEYE SCH ×2 (11:18→21:16)
--- NOTE | 2018-04-21 12:29 | PROVIDER PROGRESS NOTE ---
Subjective - Prog Note Date Prog Note Date: 04/21/18 - Subjective Pt reports feeling: Improved Subjective: pt report he feels good, and willing to go home. Pt denies fever, chill, nausea , vomiting, chest pain. Current Medications - Current Medications Current Medications: Active Medications Amiodarone HCl (Pacerone) 100 mg PO DAILY [facility] Last Admin: 04/21/18 09:38 Dose: 100 mg Brimonidine Tartrate (Alphagan P 0.15% Ophth Drops) 1 drops EACHEYE BID [facility] Last Admin: 04/21/18 11:18 Dose: 1 drops Dorzolamide HCl (Trusopt 2% Ophth Drops) 1 drops EACHEYE BID [facility] Last Admin: 04/21/18 11:16 Dose: 1 drops Doxazosin Mesylate (Cardura) 4 mg PO QPM [facility] Last Admin: 04/20/18 20:34 Dose: 4 mg Furosemide (Lasix) 40 mg PO DAILY [facility] Cefepime HCl 2 gm/ Sodium (Chloride) 100 mls @ 200 mls/hr IV Q8H [facility] Last Infusion: 04/21/18 09:55 Dose: Infused Insulin Aspart (Novolog) 2 - 10 unit SUBQ 0800,1200,1700,2100 [facility] PRN Reason: Protocol Last Admin: 04/21/18 11:43 Dose: 6 unit Insulin Glargine (Lantus Solostar) 10 unit SUBQ QPM [facility] Last Admin: 04/20/18 20:37 Dose: 10 unit Levalbuterol HCl (Xopenex) 1.25 mg INH Q4H PRN PRN Reason: Shortness of Air/Wheezing Last Admin: 04/21/18 09:50 Dose: 1.25 mg Loratadine (Claritin) 10 mg PO DAILY [facility] Last Admin: 04/21/18 09:38 Dose: 10 mg Metoprolol Succinate (Toprol Xl) 25 mg PO DAILY [facility] Last Admin: 04/21/18 09:39 Dose: 25 mg Morphine Sulfate (Morphine) 2 mg IVP Q2H PRN PRN Reason: PAIN Multivitamins (Theragran) 1 tab PO DAILYWM [facility] Last Admin: 04/21/18 09:38 Dose: 1 tab Pantoprazole Sodium (Protonix) 40 mg PO QDAC [facility] Last Admin: 04/21/18 06:06 Dose: 40 mg Polyethylene Glycol (Miralax) 17 gm PO DAILY [facility] Last Admin: 04/21/18 11:14 Dose: 17 gm Prednisone (Deltasone) 20 mg PO DAILYWM [facility] Sodium Chloride (Normal Saline Flush 0.9%) 10 ml IVP PRN PRN PRN Reason: NEEDED PER PROVIDER ORDERS Last Admin: 04/21/18 09:39 Dose: 10 ml Sodium Chloride (Normal Saline Flush 0.9%) 10 ml IVP 0100,0900,1700 [facility] Last Admin: 04/21/18 09:39 Dose: 10 ml Timolol Maleate (Timoptic 0.5% Ophth Drops) 1 drops EACHEYE BID [facility] Last Admin: 04/21/18 11:17 Dose: 1 drops Warfarin Sodium (Coumadin) 1.25 mg PO SUMOWEFR@1400 [facility] Last Admin: 04/20/18 15:01 Dose: 1.25 mg Warfarin Sodium (Coumadin) 2.5 mg PO TUTHSA@1400 [facility] Lisinopril 10 mg PO DAILY 08/11/13 Loratadine [Claritin] 10 mg PO DAILY 08/11/13 Simvastatin 20 mg PO QPM 08/11/13 Brimonidine 0.15% Ophth Drops [Alphagan P 0.15% Ophth Drops] 1 drops EACHEYE BID 08/13/15 Dorzolamide 2% Ophth Drops [Trusopt 2% Ophth Drops] 1 drops EACHEYE BID Doxazosin Mesylate 4 mg PO QPM 08/13/15 Magnesium Oxide 500 mg PO DAILY 08/13/15 Multivitamin [One-A-Day Essential] 1 tab PO DAILY 08/13/15 Sulfasalazine [Sulfazine] 1,500 mg PO 0800,1600 08/13/15 Warfarin [Coumadin] 2.5 mg PO TUTHSA@1400 12/01/16 Amiodarone [Pacerone] 100 mg PO DAILY 04/18/18 Furosemide [Lasix] 40 mg PO 1600 04/18/18 Metformin HCl [Metformin HCl ER] 500 mg PO DAILY 04/18/18 Pantoprazole [Protonix] 40 mg PO QDAC 04/18/18 Potassium Chloride [K-Dur] 20 meq PO BIDWM 04/18/18 Timolol 0.5% Ophth Drops [Timoptic 0.5% Ophth Drops] 1 drops EACHEYE BID Warfarin [Coumadin] 1.25 mg PO SUMOWEFR@1400 04/18/18 Objective - Vital Signs/Intake & Output Vital Signs: Vital Signs x48h Temp Pulse Pulse Resp BP BP Pulse Ox 04/21/18 09:53 111 H 18 04/21/18 08:05 36.7 C 102 H 16 140/66 H 93 04/21/18 07:01 104 H 144/70 H 04/21/18 06:45 104 H 139/68 H 04/21/18 06:30 102 H 135/67 H 04/21/18 06:15 102 H 135/73 H 04/21/18 06:13 102 H 134/76 H 04/21/18 06:10 102 H 20 133/73 H 97 04/21/18 06:04 103 H 133/70 H 04/21/18 05:59 114 H 146/73 H 04/21/18 05:57 146/73 H 04/21/18 04:52 37.0 C 111 H 22 146/70 H 97 Intake & Output: Intake & Output 04/18/18 04/19/18 04/20/18 04/21/18 23:59 23:59 23:59 23:59 Intake Total 2910 3040.000 1780 420 Output Total 725 200 525 650 Balance 2185 2840.000 1255 -230 - Objective General Appearance: positive: No acute distress, Alert. negative: Lethargic Eyes Bilateral: positive: Normal inspection, PERRL, No lid inflammation, Conjunctivae nml ENT: positive: ENT inspection nml, Pharynx nml, No signs of dehydration. negative: Purulent nasal drainage, Pharyngeal erythema, Oral lesions Neck: positive: Nml inspection, Thyroid nml, No JVD, Trachea midline. negative : Thyromegaly, Lymphadenopathy (R), Lymphadenopathy (L), Stiff neck, Swelling/ bruising, Tracheal deviation Respiratory: positive: Chest non-tender, No respiratory distress, Breath sounds nml. negative: Wheezes, Rales, Rhonchi Cardiovascular: positive: Regular rate & rhythm, No murmur, No gallop, Tachycardia. negative: Irregularly irregular, Extrasystoles, Bradycardia, JVD present, Systolic murmur, Diastolic murmur Peripheral Pulses: 2+ Radial (R), 2+ Radial (L), 2+ Dorsalis pedis (R), 2+ Dorsalis pedis (L) Abdomen: positive: Non-tender, No organomegaly, Nml bowel sounds, No distention. negative: Tenderness, Guarding, Rebound Back: positive: Nml inspection. negative: CVA tenderness (R), CVA tenderness (L ) Skin: positive: Color nml, No rash, Warm, Dry. negative: Cyanosis, Diaphoresis , Pallor Extremities: positive: Non-tender, Full ROM, Nml appearance. negative: Calf tenderness, Joint swelling, Diana's sign/cords Neurologic/Psychiatric: positive: Motor nml, Sensation nml, Mood/affect nml. negative: Weakness, Sensory loss, Facial droop, Slurred/abnml speech, Depressed mood/affect - Lab Results Fish Bones: 04/21/18 05:26 04/21/18 05:26 Other Labs: Lab Results x24hrs 04/21/18 04/21/18 04/21/18 Range/Units 11:29 05:26 05:26 WBC (4.8-10.8) x10^3/uL RBC (4.70-6.10) 10^6/uL Hgb (14.0-18.0) g/dL Hct (42.0-52.0) % MCV (80.0-94.0) fL MCH (27.0-31.0) pg MCHC (32.0-36.0) g/dL RDW (12.0-15.0) % Plt Count (130-450) 10^3/uL MPV (7.4-11.4) fL Neut # (Auto) Lymph # (Auto) [place] # (Auto) Eos # (Auto) Baso # (Auto) Absolute Nucleated RBC Total Counted Band Neuts % (Manual) (0 - 10) % Abnorm Lymph % (Manual) % Myelocytes % ( - 0) % Nucleated RBC % Neutrophils # (Manual) (1.5-6.6) 10^3/uL Lymphocytes # (Manual) (1.5-3.5) 10^3/uL Monocytes # (Manual) (0.0-1.0) 10^3/uL Eosinophils # (Manual) (0-0.7) 10^3/uL Basophils # (Manual) (0-0.1) 10^3/uL Differential Comment Platelet Estimate (NORMAL) RBC Morph Micro Appear (NORMAL) PT 22.0 H (9.9-12.6) secs INR 2.0 H (0.8-1.2) Sodium (135-145) mmol/L Potassium (3.5-5.0) mmol/L Chloride (101-111) mmol/L Carbon Dioxide (21-32) mmol/L Anion Gap (6-13) BUN (6-20) mg/dL Creatinine (0.6-1.2) mg/dL Estimated GFR (MDRD) (>89) Glucose (70-100) mg/dL POC Whole Bld Glucose 257 H (70 - 100) mg/dL Calcium (8.5-10.3) mg/dL Total Bilirubin (0.2-1.0) mg/dL AST (10-42) IU/L ALT (10-60) IU/L Alkaline Phosphatase (42-121) IU/L B-Natriuretic Peptide 315 H (5-100) pg/mL Total Protein (6.7-8.2) g/dL Albumin (3.2-5.5) g/dL Globulin (2.1-4.2) g/dL Albumin/Globulin Ratio (1.0-2.2) 04/21/18 04/21/18 04/20/18 Range/Units 05:26 05:26 20:31 WBC 23.0 H (4.8-10.8) x10^3/uL RBC 3.35 L (4.70-6.10) 10^6/uL Hgb 9.6 L (14.0-18.0) g/dL Hct 30.4 L (42.0-52.0) % MCV 90.8 (80.0-94.0) fL MCH 28.7 (27.0-31.0) pg MCHC 31.6 L (32.0-36.0) g/dL RDW 16.4 H (12.0-15.0) % Plt Count 406 (130-450) 10^3/uL MPV 7.9 (7.4-11.4) fL Neut # (Auto) Not Reportable Lymph # (Auto) Not Reportable [place] # (Auto) Not Reportable Eos # (Auto) Not Reportable Baso # (Auto) Not Reportable Absolute Nucleated RBC Not Reportable Total Counted 100 Band Neuts % (Manual) 2 (0 - 10) % Abnorm Lymph % (Manual) 0 % Myelocytes % 2 H ( - 0) % Nucleated RBC % Not Reportable Neutrophils # (Manual) 19.8 H (1.5-6.6) 10^3/uL Lymphocytes # (Manual) 1.4 L (1.5-3.5) 10^3/uL Monocytes # (Manual) 1.2 H (0.0-1.0) 10^3/uL Eosinophils # (Manual) 0.2 (0-0.7) 10^3/uL Basophils # (Manual) 0.0 (0-0.1) 10^3/uL Differential Comment MANUAL DIFFERENTIAL Platelet Estimate NORMAL (130-450,000) (NORMAL) RBC Morph Micro Appear NORMAL APPEARANCE (NORMAL) PT (9.9-12.6) secs INR (0.8-1.2) Sodium 131 L (135-145) mmol/L Potassium 5.2 H (3.5-5.0) mmol/L Chloride 96 L (101-111) mmol/L Carbon Dioxide 30 (21-32) mmol/L Anion Gap 5.0 L (6-13) BUN 37 H (6-20) mg/dL Creatinine 1.0 (0.6-1.2) mg/dL Estimated GFR (MDRD) 72 L (>89) Glucose 143 H (70-100) mg/dL POC Whole Bld Glucose 238 H (70 - 100) mg/dL Calcium 8.8 (8.5-10.3) mg/dL Total Bilirubin 0.5 (0.2-1.0) mg/dL AST 381 H (10-42) IU/L ALT 320 H (10-60) IU/L Alkaline Phosphatase 191 H (42-121) IU/L B-Natriuretic Peptide (5-100) pg/mL Total Protein 6.9 (6.7-8.2) g/dL Albumin 2.5 L (3.2-5.5) g/dL Globulin 4.4 H (2.1-4.2) g/dL Albumin/Globulin Ratio 0.6 L (1.0-2.2) 04/20/18 Range/Units 16:38 WBC (4.8-10.8) x10^3/uL RBC (4.70-6.10) 10^6/uL Hgb (14.0-18.0) g/dL Hct (42.0-52.0) % MCV (80.0-94.0) fL MCH (27.0-31.0) pg MCHC (32.0-36.0) g/dL RDW (12.0-15.0) % Plt Count (130-450) 10^3/uL MPV (7.4-11.4) fL Neut # (Auto) Lymph # (Auto) [place] # (Auto) Eos # (Auto) Baso # (Auto) Absolute Nucleated RBC Total Counted Band Neuts % (Manual) (0 - 10) % Abnorm Lymph % (Manual) % Myelocytes % ( - 0) % Nucleated RBC % Neutrophils # (Manual) (1.5-6.6) 10^3/uL Lymphocytes # (Manual) (1.5-3.5) 10^3/uL Monocytes # (Manual) (0.0-1.0) 10^3/uL Eosinophils # (Manual) (0-0.7) 10^3/uL Basophils # (Manual) (0-0.1) 10^3/uL Differential Comment Platelet Estimate (NORMAL) RBC Morph Micro Appear (NORMAL) PT (9.9-12.6) secs INR (0.8-1.2) Sodium (135-145) mmol/L Potassium (3.5-5.0) mmol/L Chloride (101-111) mmol/L Carbon Dioxide (21-32) mmol/L Anion Gap (6-13) BUN (6-20) mg/dL Creatinine (0.6-1.2) mg/dL Estimated GFR (MDRD) (>89) Glucose (70-100) mg/dL POC Whole Bld Glucose 262 H (70 - 100) mg/dL Calcium (8.5-10.3) mg/dL Total Bilirubin (0.2-1.0) mg/dL AST (10-42) IU/L ALT (10-60) IU/L Alkaline Phosphatase (42-121) IU/L B-Natriuretic Peptide (5-100) pg/mL Total Protein (6.7-8.2) g/dL Albumin (3.2-5.5) g/dL Globulin (2.1-4.2) g/dL Albumin/Globulin Ratio (1.0-2.2) Assessment/Plan - Problem List (1) Pneumonia Impression: Impression: 04/21 100% Sats on 3 liter of O2, will try wane off O2 continue to use Cefepime continue breath treatment O2 supplement as needed continue vital and lab monitor 04/20, no SOB, fever, chill. 95% Sats 3.5 liter of O2. WBC is 30.5, may be caused by steroid. continue to use Cefepime continue breath treatment O2 supplement as needed continue vital and lab monitor 04/19 pt report his breath is better, but WBC is still 31,000, although pt had Solu-metrol. cefeim IV tid follow up blood culture The patient presented to the ED with a right chest pain/tightness caused by coughing, shortness of breath, hypoxia with oxygen saturation ~85% on room air. WBC count was grossly elevated at 32.8. The patient denies recent fever, chills, but has had profound fatigue and mildly increased AMS. Plan: Continue IV antibiotics, low dose IV steroids and nebulizers. Await sputum sample. (2) CKD (chronic kidney disease) stage 2, Conclusion/Plan: better , stage 2 04/20 stable renal function 04/19 improved, stage 2 continue hydration, avoid fluid over-loaded The patient had an elevated creatinine of 1.6 upon admission. (3) Atrial fibrillation Conclusion/Plan: continue Coumadin, INR 2.0 04/20 INR 2.7, continue Coumadin daily PT/INR HR is 105 around. continue amiodaronl 04/19 INR 5.6, continue hold Coumadin continue PT/INR order tele, pt has HR 110. pt had hx of afib, will order EKG The patient has a long-standing history of atrial fib/flutter. Previously, he was on diltiazem, but this has been discontinued. The patient has kept a log of B/Ps and heart rates that show a progressive elevation from 80's in November up to greater than 100 for the last 2 full months. Plan: Continue amioderone daily dose. IV metoprolol Q6 hours, monitor on tele and routine vital signs. (4) Dehydration Conclusion/Plan: 04/20pt had improved renal function. Hold IVF for pt had moderate pleural effusion. hold IVF, pt had moderate pleural effusion. pt had improved renal function. IVC measurements from the ED show a deficit, about 1 Liter deficient. The patient admits to poor PO intake and has dry mucous membranes upon exam. Plan: Gentle IVFs over night and monitor vital signs. (5) Chronic anticoagulation Conclusion/Plan: INR 2.0, continue Coumadin INR 2.8, continue Coumadin continue to hold Coumadin, daily check PT/INR The patient is prescribed Coumadin and has an elevated INR of 5.7 upon admission. Evening dose was held and daily INR's were ordered. Plan: Continue to monitor with a goal of INR between 2-3. (6) Tachycardia Conclusion/Plan: resolved, HR 96 04/20, HR is around 105. ST. pt had pneumonia, it may be physiological response to respiratory distress. continue tele, vital monitor continue Amiodaronl 04/19pt had pneumonia, and with tachycardia order tele, EKG, continue PRN IV metoprolol will consider Metoprolol succinate if tachycardia continue The patient is noted to be ~120-130 in a telemetry review. I have ordered an echocardiogram that shows mild mitral stenosis, a normal EF of 65-70%, and pulmonary HTN with an RVSP at rest of 57 mmHg. Plan: Continue IV metoprolol scheduled Q6 hours, monitor VS. (7) Pulmonary hypertension Conclusion/Plan: Preliminary Echo results show an RVSP at rest of 57 mmHg, causing moderate to severe pulmonary HTN. The clinical picture shows this as he has a large abdominal girth and BLE edema. The treatment of choice is Spironolactone after this acute illness. Plan: Continue to treat acute illness and start Spironolactone late day #2, if the patient seems more hydrated. (8) Diabetes mellitus type 2 in obese Conclusion/Plan: The patient takes Metformin at home and has been diabetic for several years. He states that he does not check his blood glucose levels at home. Plan: Hold metformin, start low dose Lantus, SSI. (9) right moderate pleural effusion pt is has moderate pleural effusion, which cause pt cough, SOB. Pt continue to have some SOB, need O2, but better for the cough. consult with surgery for if need thoracentesis or just medical management, I called surgeon Dr. Sawyer Nolasco and will follow up surgeon pt had PO Lasix at home, resume replace of IV Lasix 40mg CT of chest reveals right moderate pleural effusion and bilateral basiliar pneumonia. will medical management now with Lasix IV to see pt if improved on O2 sats and cough, will consider thoracentesis if continue to have symptom. (10) lymphocytosis WBC is slight down, continue to monitor, may be caused by steroid and combination of pneumonia continue monitor lab, and vital pt has 30.5 WBC, is slight down from yesterday. It may be caused by pneumonia and steroid continue lab monitor, and treat antibiotics, reduce steroid gradually (11) elevated liver enzyme US reveals fatty liver, follow up out-pt GI unknown etiology. elevated AST, ALT and Alk slight than yesterday. order US of abdomen, will follow up Qualifiers: Pneumonia type: due to methicillin-sensitive Staphylococcus aureus (MSSA) Laterality: right Lung location: lower lobe of lung Qualified Code(s): J15.211 - Pneumonia due to Methicillin susceptible Staphylococcus aureus
[2018-04-21] MEDS ORDERED: WARFARIN 2.5 MG TABLET PO SCH (14:00)
[2018-04-21] MEDS: DOXAZOSIN 4 MG TABLET PO SCH (21:17)
[2018-04-21] MEDS: INSULIN GLARGINE 300 UNIT/3 ML PEN SUBQ SCH (21:17)
[2018-04-22] MEDS: CEFEPIME 2 GM in SODIUM CHLORIDE 0.9% MINIBAG 100 ML IV SCH ×3 (01:08→17:32)
[2018-04-22] MEDS: SODIUM CHLORIDE FLUSH 0.9% 10 ML SYRINGE IVP SCH ×3 (01:08→17:38)
[2018-04-22 06:06] LABS: INR 1.9 (0.8-1.2); PT - PROTHROMBIN TIME 20.5 secs (9.9-12.6)
[2018-04-22] MEDS: PANTOPRAZOLE 40 MG TABLET PO SCH (07:27)
[2018-04-22 07:32] LABS: BASOPHILS % (AUTO) 0.5 %; EOSINOPHILS % (AUTO) 1.6 %; HGB - HEMOGLOBIN 9.7 g/dL (14.0-18.0); LYMPHOCYTES % (AUTO) 4.7 %; MEAN CORPUSCULAR HEMOGLOBIN 27.9 pg (27.0-31.0); MEAN CORPUSCULAR HGB CONC 30.3 g/dL (32.0-36.0); MEAN CORPUSCULAR VOLUME 91.8 fL (80.0-94.0); MEAN PLATELET VOLUME 7.8 fL (7.4-11.4); MONOCYTES % (AUTO) 10.8 %; NEUTROPHILS % (AUTO) 82.4 %; PLT - PLATELET COUNT 408 10^3/uL (130-450); RED BLOOD COUNT 3.48 10^6/uL (4.70-6.10); RED CELL DISTRIBUTION WIDTH 16.2 % (12.0-15.0); WHITE BLOOD COUNT 22.6 x10^3/uL (4.8-10.8)
[2018-04-22 07:39] LABS: ABNORMAL LYMPHS % (MANUAL) 0 %; BAND NEUTROPHILS % (MANUAL) 0 %
[2018-04-22 07:47] LABS: ABG PH 7.32 (7.35-7.45); ABG PO2 87 mmHg (80-100)
[2018-04-22 07:47] LABS: CALCIUM 9.2 mg/dL (8.5-10.3)
[2018-04-22 07:48] LABS: ABG BASE EXCESS 3.8 mmol/L (-2.0-3.0); ABG OXYGEN SATURATION 96 % (94-98); ABG TCO2 32.9 MMOL/L (21.0-29.0)
[2018-04-22 07:49] LABS: ALLEN TEST POSITIVE
--- NOTE | 2018-04-22 07:50 | CT Report ---
Procedure Date: 04/22/2018 Accession Number: [id number] / [id number] Procedure: CT - Head W/O CPT Code: FULL RESULT: EXAM: CT HEAD EXAM DATE: 04/22/2018 07:30 AM. CLINICAL HISTORY: AMS, unresponsive. COMPARISON: MRI brain 11/17/2006. TECHNIQUE: Multiaxial CT images were obtained from the foramen magnum to the vertex. Reformats: Coronal. IV contrast: None. In accordance with CT protocol optimization, one or more of the following dose reduction techniques were utilized for this exam: automated exposure control, adjustment of mA and/or KV based on patient size, or use of iterative reconstructive technique. FINDINGS: Parenchyma: No intraparenchymal hemorrhage. No evidence of mass, midline shift, or CT findings of acute infarction. Rhoades-white differentiation is distinct. Diffuse chronic microangiopathic white matter changes are evident. Extraaxial Spaces: Normal for age. No subdural or epidural collections identified. Ventricles: The ventricles and cortical sulci are enlarged, consistent with age-related tissue loss. Sinuses and orbits: Imaged paranasal sinuses, orbits, and mastoids show no significant abnormality. Bones: No evidence of fracture or calvarial defect. Other: None. IMPRESSION: Generalized age-related cortical atrophic changes without evidence of acute intracranial abnormality. RADIA
[2018-04-22 07:51] LABS: ABG PCO2 62 mmHg (34-45)
[2018-04-22 08:06] LABS: EOSINOPHILS # (MANUAL) 0.2 10^3/uL (0-0.7); LYMPHOCYTES # (MANUAL) 1.6 10^3/uL (1.5-3.5); LYMPHOCYTES % (MANUAL) 7 %; METAMYELOCYTES % (MANUAL) 1 %; MONOCYTES # (MANUAL) 1.1 10^3/uL (0.0-1.0); NEUTROPHILS # (MANUAL) 19.4 10^3/uL (1.5-6.6); NEUTROPHILS % (MANUAL) 86 %
[2018-04-22] MEDS: MULTIVITAMIN TABLET PO SCH (08:15)
[2018-04-22] MEDS: predniSONE 20 MG TABLET PO SCH (08:16)
[2018-04-22] MEDS: METOPROLOL SUCCINATE 25 MG TABLET PO SCH (08:16)
[2018-04-22] MEDS: LORATADINE 10 MG TABLET PO SCH (08:16)
[2018-04-22] MEDS: AMIODARONE 200 MG TABLET PO SCH (08:16)
[2018-04-22 08:17] LABS: DIFFERENTIAL COMMENT MANUAL DIFFERENTIAL; PLATELET ESTIMATE, MANUAL NORMAL (130-450,000) (NORMAL); PLATELET MORPHOLOGY 1+ LARGE PLATELETS (NORMAL)
[2018-04-22] MEDS: POLYETHYLENE GLYCOL 3350 17 GM PACKET PO SCH (08:18)
[2018-04-22] MEDS: DORZOLAMIDE 2% OPHTH DROPS EACHEYE SCH ×2 (08:19→20:58)
[2018-04-22] MEDS: TIMOLOL 0.5% OPHTH DROPS EACHEYE SCH ×2 (08:19→21:01)
[2018-04-22] MEDS: BRIMONIDINE 0.15% OPHTH DROPS 5 ML EACHEYE SCH ×2 (08:19→20:57)
[2018-04-22] MEDS: INSULIN ASPART 300 UNIT/3 ML PEN SUBQ SCH ×4 (08:21→21:00)
[2018-04-22] MEDS ORDERED: FUROSEMIDE 40 MG TABLET PO SCH (09:00)
[2018-04-22 14:39] LABS: ABG PH 7.35 (7.35-7.45)
[2018-04-22] MEDS ORDERED: BUFFERED LIDOCAINE 10 ML SYRINGE IU ONE (14:39)
[2018-04-22 14:40] LABS: ABG BASE EXCESS 6.4 mmol/L (-2.0-3.0); ABG HCO3 33.4 mmol/L (22.0-26.0); ABG OXYGEN SATURATION 96 % (94-98); ABG PO2 84 mmHg (80-100); ABG TCO2 35.3 MMOL/L (21.0-29.0); ALLEN TEST POSITIVE
[2018-04-22 14:44] LABS: ABG PCO2 62 mmHg (34-45)
--- NOTE | 2018-04-22 15:06 | Ultrasound Report ---
Procedure Date: 04/22/2018 Accession Number: [id number] / [id number] Procedure: US - Thoracentesis Puncture CPT Code: FULL RESULT: EXAM: Thoracentesis Puncture DATE: 04/22/2018 2:20 PM CLINICAL HISTORY: right moderate pleural effusion Following obtaining informed consent, a suitable site on the patient's right posterior thorax was selected with ultrasound. Pleural fluid is noted to be loculated. The skin was prepped and draped in the usual sterile fashion. The skin and soft tissues were anesthetized with lidocaine. A safety centesis catheter was inserted into the right pleural space, and approximately 20 mL of fluid was removed with some difficulty. The patient tolerated the procedure well. Fluid was submitted to the lab for further evaluation. IMPRESSION: Successful ultrasound-guided diagnostic thoracentesis. Fluid is loculated. 20 mL fluid submitted to the lab.
[2018-04-22] MEDS ORDERED: WARFARIN 2.5 MG TABLET PO SCH (16:00)
--- NOTE | 2018-04-22 17:23 | PROVIDER PROGRESS NOTE ---
Subjective - Prog Note Date Prog Note Date: 04/22/18 - Subjective Pt reports feeling: Worse Subjective: per Dr. Graves report pt was very difficult to wake up even pt is hemodynamically stable. CT of head is no acute finding. ABGs reveals pt has significant elevated PCO2 level. Pt also present some dizziness. 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 Camarillo, Pt is put on ICU for a few hours on BiPAP, and will re-check ABGs. Current Medications - Current Medications Current Medications: Active Medications Amiodarone HCl (Pacerone) 100 mg PO DAILY [facility] Last Admin: 04/22/18 08:16 Dose: 100 mg Brimonidine Tartrate (Alphagan P 0.15% Ophth Drops) 1 drops EACHEYE BID [facility] Last Admin: 04/22/18 20:57 Dose: 2 drops Dorzolamide HCl (Trusopt 2% Ophth Drops) 1 drops EACHEYE BID [facility] Last Admin: 04/22/18 20:58 Dose: 2 drops Doxazosin Mesylate (Cardura) 4 mg PO QPM [facility] Last Admin: 04/22/18 20:59 Dose: 4 mg Furosemide (Lasix) 40 mg PO DAILY [facility] Last Admin: 04/22/18 08:15 Dose: 40 mg Cefepime HCl 2 gm/ Sodium (Chloride) 100 mls @ 200 mls/hr IV Q8H [facility] Last Admin: 04/23/18 03:39 Dose: Not Given Insulin Aspart (Novolog) 3 - 11 unit SUBQ 0800,1200,1700,2100 [facility] PRN Reason: Protocol Insulin Glargine (Lantus Solostar) 10 unit SUBQ QPM [facility] Last Admin: 04/22/18 21:01 Dose: 10 unit Levalbuterol HCl (Xopenex) 1.25 mg INH Q4H PRN PRN Reason: Shortness of Air/Wheezing Last Admin: 04/21/18 09:50 Dose: 1.25 mg Loratadine (Claritin) 10 mg PO DAILY [facility] Last Admin: 04/22/18 08:16 Dose: 10 mg Metoprolol Succinate (Toprol Xl) 12.5 mg PO DAILY [facility] Morphine Sulfate (Morphine) 2 mg IVP Q2H PRN PRN Reason: PAIN Multivitamins (Theragran) 1 tab PO DAILYWM [facility] Last Admin: 04/22/18 08:15 Dose: 1 tab Pantoprazole Sodium (Protonix) 40 mg PO QDAC [facility] Last Admin: 04/23/18 06:52 Dose: 40 mg Polyethylene Glycol (Miralax) 17 gm PO DAILY [facility] Last Admin: 04/22/18 08:18 Dose: 17 gm Prednisone (Deltasone) 20 mg PO DAILYWM [facility] Last Admin: 04/22/18 08:16 Dose: 20 mg Sodium Chloride (Normal Saline Flush 0.9%) 10 ml IVP PRN PRN PRN Reason: NEEDED PER PROVIDER ORDERS Last Admin: 04/21/18 09:39 Dose: 10 ml Sodium Chloride (Normal Saline Flush 0.9%) 10 ml IVP 0100,0900,1700 [facility] Last Admin: 04/23/18 03:39 Dose: Not Given Timolol Maleate (Timoptic 0.5% Ophth Drops) 1 drops EACHEYE BID [facility] Last Admin: 04/22/18 21:01 Dose: 2 drops Warfarin Sodium (Coumadin) 2.5 mg PO QDWARFARIN [facility] Last Admin: 04/22/18 17:32 Dose: 2.5 mg Lisinopril 10 mg PO DAILY 08/11/13 Loratadine [Claritin] 10 mg PO DAILY 08/11/13 Simvastatin 20 mg PO QPM 08/11/13 Brimonidine 0.15% Ophth Drops [Alphagan P 0.15% Ophth Drops] 1 drops EACHEYE BID 08/13/15 Dorzolamide 2% Ophth Drops [Trusopt 2% Ophth Drops] 1 drops EACHEYE BID Doxazosin Mesylate 4 mg PO QPM 08/13/15 Magnesium Oxide 500 mg PO DAILY 08/13/15 Multivitamin [One-A-Day Essential] 1 tab PO DAILY 08/13/15 Sulfasalazine [Sulfazine] 1,500 mg PO 0800,1600 08/13/15 Warfarin [Coumadin] 2.5 mg PO TUTHSA@1400 12/01/16 Amiodarone [Pacerone] 100 mg PO DAILY 04/18/18 Furosemide [Lasix] 40 mg PO 1600 04/18/18 Metformin HCl [Metformin HCl ER] 500 mg PO DAILY 04/18/18 Pantoprazole [Protonix] 40 mg PO QDAC 04/18/18 Potassium Chloride [K-Dur] 20 meq PO BIDWM 04/18/18 Timolol 0.5% Ophth Drops [Timoptic 0.5% Ophth Drops] 1 drops EACHEYE BID Warfarin [Coumadin] 1.25 mg PO SUMOWEFR@1400 04/18/18 Objective - Vital Signs/Intake & Output Reviewed Vital Signs: Yes Vital Signs: Vital Signs x48h Temp Pulse Pulse Pulse Resp BP Pulse Ox 04/22/18 16:19 37.2 C 114 H 21 138/74 H 95 04/22/18 16:15 113 H 04/22/18 15:29 36.5 C 113 H 16 137/73 H 94 04/22/18 14:03 36.6 C 111 H 20 143/75 H 94 04/22/18 11:09 109 H 24 Intake & Output: Intake & Output 04/19/18 04/20/18 04/21/18 04/22/18 23:59 23:59 23:59 23:59 Intake Total 3040.000 1780 1160 440 Output Total 256 839 1746 500 Balance 2840.000 1255 110 -60 - Objective General Appearance: positive: No acute distress, Alert. negative: Lethargic Eyes Bilateral: positive: Normal inspection, PERRL, No lid inflammation, Conjunctivae nml ENT: positive: ENT inspection nml, Pharynx nml, No signs of dehydration. negative: Purulent nasal drainage, Pharyngeal erythema, Oral lesions Neck: positive: Nml inspection, Thyroid nml, No JVD, Trachea midline. negative : Thyromegaly, Lymphadenopathy (R), Lymphadenopathy (L), Stiff neck, Carotid bruit, Swelling/bruising, Tracheal deviation Respiratory: positive: Chest non-tender, No respiratory distress, Breath sounds nml. negative: Wheezes, Rales, Rhonchi Cardiovascular: positive: Tachycardia. negative: Regular rate & rhythm, No murmur, No gallop, Irregularly irregular, Extrasystoles, Bradycardia, JVD present, Systolic murmur, Diastolic murmur Peripheral Pulses: 2+ Radial (R), 2+ Radial (L), 2+ Dorsalis pedis (R), 2+ Dorsalis pedis (L) Abdomen: positive: Non-tender, No organomegaly, Nml bowel sounds, No distention. negative: Tenderness, Guarding, Rebound Back: positive: Nml inspection. negative: CVA tenderness (R), CVA tenderness (L ) Skin: positive: Color nml, No rash, Warm, Dry. negative: Cyanosis, Diaphoresis , Pallor Extremities: positive: Non-tender, Full ROM, Nml appearance. negative: Calf tenderness, Joint swelling, Diana's sign/cords Neurologic/Psychiatric: positive: Motor nml, Sensation nml, Disoriented to time. negative: Weakness, Sensory loss, Facial droop, Slurred/abnml speech, Depressed mood/affect - Lab Results Fish Bones: 04/22/18 07:20 04/22/18 05:31 Other Labs: Lab Results x24hrs 04/22/18 04/22/18 04/22/18 Range/Units 14:33 07:48 07:40 WBC (4.8-10.8) x10^3/uL RBC (4.70-6.10) 10^6/uL Hgb (14.0-18.0) g/dL Hct (42.0-52.0) % MCV (80.0-94.0) fL MCH (27.0-31.0) pg MCHC (32.0-36.0) g/dL RDW (12.0-15.0) % Plt Count (130-450) 10^3/uL MPV (7.4-11.4) fL Neut # (Auto) Lymph # (Auto) [place] # (Auto) Eos # (Auto) Baso # (Auto) Absolute Nucleated RBC Total Counted Band Neuts % (Manual) (0 - 10) % Abnorm Lymph % (Manual) % Metamyelocytes % ( - 0) % Nucleated RBC % Neutrophils # (Manual) (1.5-6.6) 10^3/uL Lymphocytes # (Manual) (1.5-3.5) 10^3/uL Monocytes # (Manual) (0.0-1.0) 10^3/uL Eosinophils # (Manual) (0-0.7) 10^3/uL Basophils # (Manual) (0-0.1) 10^3/uL Differential Comment Platelet Estimate (NORMAL) Platelet Morphology (NORMAL) RBC Morph Micro Appear (NORMAL) PT (9.9-12.6) secs INR (0.8-1.2) Bld Gas Analysis Time 2716 0768 Sample Site RIGHT RADIAL RIGHT RADIAL ABG pH 7.35 7.32 L (7.35-7.45) ABG pCO2 62 H* 62 H* (34-45) mmHg ABG pO2 84 87 (80-100) mmHg ABG HCO3 33.4 H 31.0 H (22.0-26.0) mmol/L ABG Total CO2 35.3 H 32.9 H (21.0-29.0) MMOL/L ABG O2 Saturation 96 96 (94-98) % ABG Oximetry Spot Check 96 96 % ABG Base Excess 6.4 H 3.8 H (-2.0-3.0) mmol/L Dong Test POSITIVE POSITIVE Respiration Rate 24 24 b/min O2 Delivery Device NASAL CANNULA NASAL CANNULA O2 Liters/Min 2.00 3.00 LPM Sodium (135-145) mmol/L Potassium (3.5-5.0) mmol/L Chloride (101-111) mmol/L Carbon Dioxide (21-32) mmol/L Anion Gap (6-13) BUN (6-20) mg/dL Creatinine (0.6-1.2) mg/dL Estimated GFR (MDRD) (>89) Glucose (70-100) mg/dL POC Whole Bld Glucose 142 H (70 - 100) mg/dL Calcium (8.5-10.3) mg/dL Lactate Dehydrogenase (91-225) IU/L Triglycerides ( - 149) mg/dL Cholesterol ( - 199) mg/dL Carcinoembryonic Ag ng/mL 04/22/18 04/22/18 04/22/18 Range/Units 07:20 05:31 05:31 WBC 22.6 H (4.8-10.8) x10^3/uL RBC 3.48 L (4.70-6.10) 10^6/uL Hgb 9.7 L (14.0-18.0) g/dL Hct 32.0 L (42.0-52.0) % MCV 91.8 (80.0-94.0) fL MCH 27.9 (27.0-31.0) pg MCHC 30.3 L (32.0-36.0) g/dL RDW 16.2 H (12.0-15.0) % Plt Count 408 (130-450) 10^3/uL MPV 7.8 (7.4-11.4) fL Neut # (Auto) Not Reportable Lymph # (Auto) Not Reportable [place] # (Auto) Not Reportable Eos # (Auto) Not Reportable Baso # (Auto) Not Reportable Absolute Nucleated RBC Not Reportable Total Counted 100 Band Neuts % (Manual) 0 (0 - 10) % Abnorm Lymph % (Manual) 0 % Metamyelocytes % 1 H ( - 0) % Nucleated RBC % Not Reportable Neutrophils # (Manual) 19.4 H (1.5-6.6) 10^3/uL Lymphocytes # (Manual) 1.6 (1.5-3.5) 10^3/uL Monocytes # (Manual) 1.1 H (0.0-1.0) 10^3/uL Eosinophils # (Manual) 0.2 (0-0.7) 10^3/uL Basophils # (Manual) 0.0 (0-0.1) 10^3/uL Differential Comment MANUAL DIFFERENTIAL Platelet Estimate NORMAL (130-450,000) (NORMAL) Platelet Morphology 1+ LARGE PLATELETS (NORMAL) RBC Morph Micro Appear 1+ HYPOCHROMASIA (NORMAL) PT (9.9-12.6) secs INR (0.8-1.2) Bld Gas Analysis Time Sample Site ABG pH (7.35-7.45) ABG pCO2 (34-45) mmHg ABG pO2 (80-100) mmHg ABG HCO3 (22.0-26.0) mmol/L ABG Total CO2 (21.0-29.0) MMOL/L ABG O2 Saturation (94-98) % ABG Oximetry Spot Check % ABG Base Excess (-2.0-3.0) mmol/L Dong Test Respiration Rate b/min O2 Delivery Device O2 Liters/Min LPM Sodium (135-145) mmol/L Potassium (3.5-5.0) mmol/L Chloride (101-111) mmol/L Carbon Dioxide (21-32) mmol/L Anion Gap (6-13) BUN (6-20) mg/dL Creatinine (0.6-1.2) mg/dL Estimated GFR (MDRD) (>89) Glucose 159 H (70-100) mg/dL POC Whole Bld Glucose (70 - 100) mg/dL Calcium (8.5-10.3) mg/dL Lactate Dehydrogenase (91-225) IU/L Triglycerides ( - 149) mg/dL Cholesterol ( - 199) mg/dL Carcinoembryonic Ag 2.0 ng/mL 04/22/18 04/22/18 04/22/18 Range/Units 05:31 05:31 05:31 WBC (4.8-10.8) x10^3/uL RBC (4.70-6.10) 10^6/uL Hgb (14.0-18.0) g/dL Hct (42.0-52.0) % MCV (80.0-94.0) fL MCH (27.0-31.0) pg MCHC (32.0-36.0) g/dL RDW (12.0-15.0) % Plt Count (130-450) 10^3/uL MPV (7.4-11.4) fL Neut # (Auto) Lymph # (Auto) [place] # (Auto) Eos # (Auto) Baso # (Auto) Absolute Nucleated RBC Total Counted Band Neuts % (Manual) (0 - 10) % Abnorm Lymph % (Manual) % Metamyelocytes % ( - 0) % Nucleated RBC % Neutrophils # (Manual) (1.5-6.6) 10^3/uL Lymphocytes # (Manual) (1.5-3.5) 10^3/uL Monocytes # (Manual) (0.0-1.0) 10^3/uL Eosinophils # (Manual) (0-0.7) 10^3/uL Basophils # (Manual) (0-0.1) 10^3/uL Differential Comment Platelet Estimate (NORMAL) Platelet Morphology (NORMAL) RBC Morph Micro Appear (NORMAL) PT (9.9-12.6) secs INR (0.8-1.2) Bld Gas Analysis Time Sample Site ABG pH (7.35-7.45) ABG pCO2 (34-45) mmHg ABG pO2 (80-100) mmHg ABG HCO3 (22.0-26.0) mmol/L ABG Total CO2 (21.0-29.0) MMOL/L ABG O2 Saturation (94-98) % ABG Oximetry Spot Check % ABG Base Excess (-2.0-3.0) mmol/L Dong Test Respiration Rate b/min O2 Delivery Device O2 Liters/Min LPM Sodium (135-145) mmol/L Potassium (3.5-5.0) mmol/L Chloride (101-111) mmol/L Carbon Dioxide (21-32) mmol/L Anion Gap (6-13) BUN (6-20) mg/dL Creatinine (0.6-1.2) mg/dL Estimated GFR (MDRD) (>89) Glucose (70-100) mg/dL POC Whole Bld Glucose (70 - 100) mg/dL Calcium (8.5-10.3) mg/dL Lactate Dehydrogenase 159 (91-225) IU/L Triglycerides 100 ( - 149) mg/dL Cholesterol 112 ( - 199) mg/dL Carcinoembryonic Ag ng/mL 04/22/18 04/22/18 04/21/18 Range/Units 05:31 05:30 20:40 WBC (4.8-10.8) x10^3/uL RBC (4.70-6.10) 10^6/uL Hgb (14.0-18.0) g/dL Hct (42.0-52.0) % MCV (80.0-94.0) fL MCH (27.0-31.0) pg MCHC (32.0-36.0) g/dL RDW (12.0-15.0) % Plt Count (130-450) 10^3/uL MPV (7.4-11.4) fL Neut # (Auto) Lymph # (Auto) [place] # (Auto) Eos # (Auto) Baso # (Auto) Absolute Nucleated RBC Total Counted Band Neuts % (Manual) (0 - 10) % Abnorm Lymph % (Manual) % Metamyelocytes % ( - 0) % Nucleated RBC % Neutrophils # (Manual) (1.5-6.6) 10^3/uL Lymphocytes # (Manual) (1.5-3.5) 10^3/uL Monocytes # (Manual) (0.0-1.0) 10^3/uL Eosinophils # (Manual) (0-0.7) 10^3/uL Basophils # (Manual) (0-0.1) 10^3/uL Differential Comment Platelet Estimate (NORMAL) Platelet Morphology (NORMAL) RBC Morph Micro Appear (NORMAL) PT 20.5 H (9.9-12.6) secs INR 1.9 H (0.8-1.2) Bld Gas Analysis Time Sample Site ABG pH (7.35-7.45) ABG pCO2 (34-45) mmHg ABG pO2 (80-100) mmHg ABG HCO3 (22.0-26.0) mmol/L ABG Total CO2 (21.0-29.0) MMOL/L ABG O2 Saturation (94-98) % ABG Oximetry Spot Check % ABG Base Excess (-2.0-3.0) mmol/L Dong Test Respiration Rate b/min O2 Delivery Device O2 Liters/Min LPM Sodium 134 L (135-145) mmol/L Potassium 5.1 H (3.5-5.0) mmol/L Chloride 95 L (101-111) mmol/L Carbon Dioxide 32 (21-32) mmol/L Anion Gap 7.0 (6-13) BUN 38 H (6-20) mg/dL Creatinine 1.0 (0.6-1.2) mg/dL Estimated GFR (MDRD) 72 L (>89) Glucose 156 H (70-100) mg/dL POC Whole Bld Glucose 202 H (70 - 100) mg/dL Calcium 9.2 (8.5-10.3) mg/dL Lactate Dehydrogenase (91-225) IU/L Triglycerides ( - 149) mg/dL Cholesterol ( - 199) mg/dL Carcinoembryonic Ag ng/mL 04/21/18 Range/Units 07:33 WBC (4.8-10.8) x10^3/uL RBC (4.70-6.10) 10^6/uL Hgb (14.0-18.0) g/dL Hct (42.0-52.0) % MCV (80.0-94.0) fL MCH (27.0-31.0) pg MCHC (32.0-36.0) g/dL RDW (12.0-15.0) % Plt Count (130-450) 10^3/uL MPV (7.4-11.4) fL Neut # (Auto) Lymph # (Auto) [place] # (Auto) Eos # (Auto) Baso # (Auto) Absolute Nucleated RBC Total Counted Band Neuts % (Manual) (0 - 10) % Abnorm Lymph % (Manual) % Metamyelocytes % ( - 0) % Nucleated RBC % Neutrophils # (Manual) (1.5-6.6) 10^3/uL Lymphocytes # (Manual) (1.5-3.5) 10^3/uL Monocytes # (Manual) (0.0-1.0) 10^3/uL Eosinophils # (Manual) (0-0.7) 10^3/uL Basophils # (Manual) (0-0.1) 10^3/uL Differential Comment Platelet Estimate (NORMAL) Platelet Morphology (NORMAL) RBC Morph Micro Appear (NORMAL) PT (9.9-12.6) secs INR (0.8-1.2) Bld Gas Analysis Time Sample Site ABG pH (7.35-7.45) ABG pCO2 (34-45) mmHg ABG pO2 (80-100) mmHg ABG HCO3 (22.0-26.0) mmol/L ABG Total CO2 (21.0-29.0) MMOL/L ABG O2 Saturation (94-98) % ABG Oximetry Spot Check % ABG Base Excess (-2.0-3.0) mmol/L Dong Test Respiration Rate b/min O2 Delivery Device O2 Liters/Min LPM Sodium (135-145) mmol/L Potassium (3.5-5.0) mmol/L Chloride (101-111) mmol/L Carbon Dioxide (21-32) mmol/L Anion Gap (6-13) BUN (6-20) mg/dL Creatinine (0.6-1.2) mg/dL Estimated GFR (MDRD) (>89) Glucose (70-100) mg/dL POC Whole Bld Glucose 138 H (70 - 100) mg/dL Calcium (8.5-10.3) mg/dL Lactate Dehydrogenase (91-225) IU/L Triglycerides ( - 149) mg/dL Cholesterol ( - 199) mg/dL Carcinoembryonic Ag ng/mL ABX Reporting Has patient been on IV antibiotics over the past 48 hours?: Yes Assessment/Plan - Problem List (1) Pneumonia Impression: Impression: 04/22 91-92% sats on room air when I assessed pt. no cough, fever, chill. CXR reveals stable continue antibiotics O2 supplement as needed continue vital and lab monitor 04/21 100% Sats on 3 liter of O2, will try wane off O2 continue to use Cefepime continue breath treatment O2 supplement as needed continue vital and lab monitor 04/20, no SOB, fever, chill. 95% Sats 3.5 liter of O2. WBC is 30.5, may be caused by steroid. continue to use Cefepime continue breath treatment O2 supplement as needed continue vital and lab monitor 04/19 pt report his breath is better, but WBC is still 31,000, although pt had Solu-metrol. cefeim IV tid follow up blood culture The patient presented to the ED with a right chest pain/tightness caused by coughing, shortness of breath, hypoxia with oxygen saturation ~85% on room air. WBC count was grossly elevated at 32.8. The patient denies recent fever, chills, but has had profound fatigue and mildly increased AMS. Plan: Continue IV antibiotics, low dose IV steroids and nebulizers. Await sputum sample. (2) CKD (chronic kidney disease) stage 2, Conclusion/Plan: better , stage 2 04/20 stable renal function 04/19 improved, stage 2 continue hydration, avoid fluid over-loaded The patient had an elevated creatinine of 1.6 upon admission. (3) Atrial fibrillation Conclusion/Plan: 04/22, pt with hx of afib, and present ST at HR 110 around, pt report fatigue than before keep low dosage beta-reema to control the HR continue Coumadin, INR 2.0 04/20 INR 2.7, continue Coumadin daily PT/INR HR is 105 around. continue amiodaronl 04/19 INR 5.6, continue hold Coumadin continue PT/INR order tele, pt has HR 110. pt had hx of afib, will order EKG The patient has a long-standing history of atrial fib/flutter. Previously, he was on diltiazem, but this has been discontinued. The patient has kept a log of B/Ps and heart rates that show a progressive elevation from 80's in October/ November up to greater than 100 for the last 2 full months. Plan: Continue amioderone daily dose. IV metoprolol Q6 hours, monitor on tele and routine vital signs. (4) Dehydration Conclusion/Plan: 04/20pt had improved renal function. Hold IVF for pt had moderate pleural effusion. hold IVF, pt had moderate pleural effusion. pt had improved renal function. IVC measurements from the ED show a deficit, about 1 Liter deficient. The patient admits to poor PO intake and has dry mucous membranes upon exam. Plan: Gentle IVFs over night and monitor vital signs. (5) Chronic anticoagulation Conclusion/Plan: INR 2.0, continue Coumadin INR 2.8, continue Coumadin continue to hold Coumadin, daily check PT/INR The patient is prescribed Coumadin and has an elevated INR of 5.7 upon admission. Evening dose was held and daily INR's were ordered. Plan: Continue to monitor with a goal of INR between 2-3. (6) Tachycardia Conclusion/Plan: 04/22, low dosage beta-block resolved, HR 96 04/20, HR is around 105. ST. pt had pneumonia, it may be physiological response to respiratory distress. continue tele, vital monitor continue Amiodaronl 04/19pt had pneumonia, and with tachycardia order tele, EKG, continue PRN IV metoprolol will consider Metoprolol succinate if tachycardia continue The patient is noted to be ~120-130 in a telemetry review. I have ordered an echocardiogram that shows mild mitral stenosis, a normal EF of 65-70%, and pulmonary HTN with an RVSP at rest of 57 mmHg. Plan: Continue IV metoprolol scheduled Q6 hours, monitor VS. (7) Pulmonary hypertension Conclusion/Plan: Preliminary Echo results show an RVSP at rest of 57 mmHg, causing moderate to severe pulmonary HTN. The clinical picture shows this as he has a large abdominal girth and BLE edema. The treatment of choice is Spironolactone after this acute illness. Plan: Continue to treat acute illness and start Spironolactone late day #2, if the patient seems more hydrated. (8) Diabetes mellitus type 2 in obese Conclusion/Plan: The patient takes Metformin at home and has been diabetic for several years. He states that he does not check his blood glucose levels at home. Plan: Hold metformin, start low dose Lantus, SSI. (9) right moderate pleural effusion 04/22, pt had thoracentesis, and has around 20 ml out, sample was sent for test pt is has moderate pleural effusion, which cause pt cough, SOB. Pt continue to have some SOB, need O2, but better for the cough. consult with surgery for if need thoracentesis or just medical management, I called surgeon Dr. Sawyer Nolasco and will follow up surgeon pt had PO Lasix at home, resume replace of IV Lasix 40mg CT of chest reveals right moderate pleural effusion and bilateral basiliar pneumonia. will medical management now with Lasix IV to see pt if improved on O2 sats and cough, will consider thoracentesis if continue to have symptom. (10) lymphocytosis 04/22, pt presented WBC 33 at admission, now gradually down, exact etiology unknown. one of reasons, pt was diagnosis of pneumonia. continue to treat with antibiotics, wane off steroid. continue monitor lab, vital WBC is slight down, continue to monitor, may be caused by steroid and combination of pneumonia continue monitor lab, and vital pt has 30.5 WBC, is slight down from yesterday. It may be caused by pneumonia and steroid continue lab monitor, and treat antibiotics, reduce steroid gradually (11) elevated liver enzyme US reveals fatty liver, follow up out-pt GI (12) Hypercapnia pt has elevated PCO2 62 in ABGs. unremarkable other components in ABGs. Per night Dr. Graves report pt was very difficult to wake up although pt is hemodynamically stable. CT of head is unremarkable. the exact etiology is unknown. pt present more dizziness. pt is on ICU with BiPAP continue to monitor closely in ICU, will treat underline cause as known. Qualifiers: Pneumonia type: due to methicillin-sensitive Staphylococcus aureus (MSSA) Laterality: right Lung location: lower lobe of lung Qualified Code(s): J15.211 - Pneumonia due to Methicillin susceptible Staphylococcus aureus
[2018-04-22 20:33] LABS: ABG PCO2 62 mmHg (34-45); ABG PH 7.32 (7.35-7.45); ABG PO2 97 mmHg (80-100); ABG TCO2 32.9 MMOL/L (21.0-29.0)
[2018-04-22 20:34] LABS: ABG BASE EXCESS 3.8 mmol/L (-2.0-3.0); ABG OXYGEN SATURATION 97 % (94-98); ALLEN TEST POSITIVE
[2018-04-22] MEDS: DOXAZOSIN 4 MG TABLET PO SCH (20:59)
[2018-04-22] MEDS: INSULIN GLARGINE 300 UNIT/3 ML PEN SUBQ SCH (21:01)
[2018-04-23] MEDS: CEFEPIME 2 GM in SODIUM CHLORIDE 0.9% MINIBAG 100 ML IV SCH (03:39)
[2018-04-23] MEDS: SODIUM CHLORIDE FLUSH 0.9% 10 ML SYRINGE IVP SCH (03:39)
[2018-04-23] MEDS: PANTOPRAZOLE 40 MG TABLET PO SCH (06:52)
[2018-04-23] MEDS ORDERED: FUROSEMIDE 20 MG TABLET PO SCH (08:25)
[2018-04-23] MEDS ORDERED: INSULIN GLARGINE 300 UNIT/3 ML PEN SUBQ ONE (08:27)
[2018-04-23] MEDS ORDERED: levoFLOXacin 250 MG TABLET PO SCH (09:00)
[2018-04-23] MEDS ORDERED: SPIRONOLACTONE 25 MG TABLET PO SCH (09:00)
[2018-04-23] MEDS ORDERED: METOPROLOL SUCCINATE 25 MG TABLET PO SCH ×2 (09:00)
[2018-04-23] MEDS ORDERED: SACCHAROMYCES BOULARDII 250 MG CAPSULE PO SCH (09:00)
[2018-04-23] MEDS: INSULIN ASPART 300 UNIT/3 ML PEN SUBQ SCH ×2 (09:11→12:53)
[2018-04-23 09:16] LABS: BASOPHILS % (AUTO) 0.6 %; EOSINOPHILS % (AUTO) 1.7 %; HGB - HEMOGLOBIN 10.1 g/dL (14.0-18.0); LYMPHOCYTES % (AUTO) 5.5 %; MEAN CORPUSCULAR HEMOGLOBIN 28.6 pg (27.0-31.0); MEAN CORPUSCULAR HGB CONC 31.8 g/dL (32.0-36.0); MEAN PLATELET VOLUME 7.8 fL (7.4-11.4); MONOCYTES % (AUTO) 9.8 %; NEUTROPHILS % (AUTO) 82.4 %; PLT - PLATELET COUNT 443 10^3/uL (130-450); RED BLOOD COUNT 3.54 10^6/uL (4.70-6.10); RED CELL DISTRIBUTION WIDTH 16.6 % (12.0-15.0); WHITE BLOOD COUNT 25.4 x10^3/uL (4.8-10.8)
[2018-04-23 09:18] LABS: PT - PROTHROMBIN TIME 22.1 secs (9.9-12.6)
[2018-04-23] MEDS: POLYETHYLENE GLYCOL 3350 17 GM PACKET PO SCH (09:25)
[2018-04-23 09:27] LABS: ALBUMIN 2.4 g/dL (3.2-5.5); ALBUMIN/GLOBULIN RATIO 0.5 (1.0-2.2); BILIRUBIN,TOTAL 0.6 mg/dL (0.2-1.0); CALCIUM 8.8 mg/dL (8.5-10.3); CREATININE 0.9 mg/dL (0.6-1.2); TOTAL PROTEIN 6.9 g/dL (6.7-8.2)
[2018-04-23] MEDS: MULTIVITAMIN TABLET PO SCH (09:27)
[2018-04-23] MEDS: LORATADINE 10 MG TABLET PO SCH (09:31)
[2018-04-23] MEDS: predniSONE 20 MG TABLET PO SCH (09:31)
[2018-04-23] MEDS: TIMOLOL 0.5% OPHTH DROPS EACHEYE SCH (09:38)
[2018-04-23] MEDS: BRIMONIDINE 0.15% OPHTH DROPS 5 ML EACHEYE SCH (09:39)
[2018-04-23] MEDS: DORZOLAMIDE 2% OPHTH DROPS EACHEYE SCH (09:39)
[2018-04-23 09:40] LABS: ABNORMAL LYMPHS % (MANUAL) 0 %; BAND NEUTROPHILS % (MANUAL) 3 %; EOSINOPHILS # (MANUAL) 0.3 10^3/uL (0-0.7); LYMPHOCYTES % (MANUAL) 8 %; METAMYELOCYTES % (MANUAL) 2 %; MONOCYTES # (MANUAL) 1.8 10^3/uL (0.0-1.0); NEUTROPHILS # (MANUAL) 20.8 10^3/uL (1.5-6.6); NEUTROPHILS % (MANUAL) 79 %
[2018-04-23 09:41] LABS: DIFFERENTIAL COMMENT MANUAL DIFFERENTIAL; PLATELET ESTIMATE, MANUAL INCREASED (>450,000) (NORMAL); PLATELET MORPHOLOGY NORMAL APPEARANCE (NORMAL)
--- NOTE | 2018-04-23 12:02 | Discharge Plan ---
"Discharge Plan for SNF / [facility] - DC Plan and Transition Orders Disposition: 03 SNF DC/Xfer Condition: Fair SNF Transition Orders: Admit to: Care Age under the care of Dr. Adam Tovar Discharge Diagnosis: Pneumonia, pulmonary hypertension, respiratory failure with acidosis, CKD stage 3, chronic atrial fibrillation, halfway anticoagulant use, DM type [id number] dependent, obestiy, debility, and mild short term memory loss. Medicare Certification: I certify that Post Hospital snf care is medically necessary on a continuing basis for any of the conditions for which she/he is receiving care during hospitalization. Notify PCP of admission and forward orders to primary provider for signature. Weight on admission and weekly. Call PCP immediately if weight increases by 10 pounds or if patient develops dyspnea, chest pain/tightness or edema. House Bowel Program: yes; If no BM after 2 days, nurse may give M.O.M. 30ml PO PRN and /or ducolax Supp 1 VA and /or LILIAN 250mg P.O., and/or senna 1-2 tabs PO. On day 3 nurse may give repeat above order until residents constipation is resolved. Immunizations: Annual Influenza Vaccine: yes. (between Jun 25 and January 22 .) Unless allergy or already given Two-Step PPD: yes per [facility] [phone] or appropriate documentation of approved exceptions Treatments & Other Orders: Physical therapy for strengthening and endurance, anticipate discharge back home independently. Oxygen Orders: Oxygen was not needed leading up to hospital discharge, PRN oxygen to keep oxygen greater than 90%, may use 1-2 L per nasal cannula. Lab Tests or X-Rays Orders: Orthopedic Orders: Remove Sutures/[place] and Comment. Medications: PLEASE REFER TO THE DISCHARGE MEDICATION LIST. Insulin Orders? No Diagnosis: Diabetes Initiate hypo and hyperglycemia protocols for BG <70 and BG >375. May check BG prn for signs/symptoms of dysglycemia. Frequency of BG checks: daily, early AM. Allergies and Adverse Reactions: Allergies Allergy/AdvReac Type Severity Reaction Status Date / Time No Known Drug Allergies Allergy Verified 08/13/15 10:05 - Medications New Prescriptions: Spironolactone [Aldactone] 12.5 mg PO BID #15 tablet - Diet Type: Geriatric Texture: Regular Liquids: Thin May have monthly special meal: Yes - Therapies | Activity Therapy: Evaluation | Treat if indicated: Speech, PT, OT Rehabilitation Potential: Maximize functional status, Return to independent living, Maintain present ADL Functional Activity: No Restrictions Weight Bearing: Full Weight Assistance Devices: Walker, Cane"
--- NOTE | 2018-04-23 12:03 | DISCHARGE SUMMARY ---
Discharge Summary Discharge Date: 04/23/18 Discharging Provider: NAKIA Amaya Primary Care Provider: Arvind Maurer/Adam Tovar Code Status: Attempt Resuscitation Condition at Discharge: Good Discharge Disposition: 01 Home, Self Care - DIAGNOSES Admission Diagnoses: Pneumonia, unspecified organism (J18.9) Chronic kidney disease, stage 3 (moderate) (N18.3) Chronic atrial fibrillation (I48.2) Dehydration (E86.0) [facility] (current) use of anticoagulants (Z79.01) Pulmonary hypertension, unspecified (I27.20) Type 2 diabetes mellitus with other specified complication (E11.69) Discharge Diagnoses with Status of Each Condition: Pneumonia (J18.9) new on this admission, improved with prescriptions to continue. Chronic kidney disease, stage 3 (N18.3) -chronic stable. Chronic atrial fibrillation (I48.2) -chronic, stable. Dehydration (E86.0) -resolved. Chronic anticoagulation (Z79.01) -chronic, stable. Pulmonary hypertension, moderate to severe (I27.20) new on this admit, treatment to continue with Spironolactone. Diabetes mellitus type 2 in obese (E11.69) chronic, stable. Pleural effusion (J90) improved, stable, no oxygen needed. Elevated LFTs- new on this admit, improved. Acute respiratory failure with hypoxia and hypercapnia (J96.01)- resolved, stable. - HPI History of Present Illness: Lorene Meza) is an ill appearing 82-year old obese male with a past medical history of atrial fib/flutter-on chronic anticoagulation, hypertension, diabetes mellitus type 2, hyperlipidemia, rheumatoid arthritis, psoriasis, GERD , diverticulosis, BPH, adenocarcinoma prostate, bells palsy, peripheral neuropathy, DJD, and CKD stage 3. The patient presented to the ED today with complaints of cough, right sided chest pain, and shortness of breath. The dry cough started around one month ago. He states that he has chronic insomnia and only sleeps about 2-3 hours per night. Imaging in the ED show a right lung consolidation, likely pneumonia. Labs show a grossly elevated WBC count of 32.8 , anemia with an H/H of 10.7/33.8, a sodium of 128, potassium of 5.1, creatinine of 1.6, GFR of 42, and an elevated lactic acid of 3.8. The patient is tachycardic with rates in the 110-130's, hypoxic on 2 L per nasal cannula and continues to have a cough. The patient denies nausea, vomiting, recent falls, diarrhea, abdominal pain or bleeding. He will be admitted as inpatient for further treatment of this pneumonia. - HOSPITAL COURSE Hospital Course: (1) CKD (chronic kidney disease) stage 3, GFR 30-59 ml/min The patient had an elevated creatinine of 1.6 upon admission. (2) Pneumonia The patient presented to the ED with a right chest pain/tightness caused by coughing, shortness of breath, hypoxia with oxygen saturation ~85% on room air. WBC count was grossly elevated at 32.8. The patient denies recent fever, chills, but has had profound fatigue and mildly increased AMS. The patient was started on IV antibiotics, low dose IV steroids and nebulizers. A sputum sample collected showed primarily yeast and no other identifiable organisms. (3) Atrial fibrillation The patient has a long-standing history of atrial fib/flutter. Previously, he was on diltiazem, but this has been discontinued. The patient has kept a log of B/Ps and heart rates that show a progressive elevation from 80's in October/ November up to greater than 100 for the last 2 full months. He was continued on amioderone daily. Due to elevated heart rates he was started on Metoprolol IV that was then started in a PO form, and continued for discharge. The new prescription of Metoprolol was sent to his pharmacy. (4) Dehydration IVC measurements from the ED show a deficit, about 1 Liter deficient. The patient admits to poor PO intake and has dry mucous membranes upon exam. The patient was given gentle IVFs over his first night of stay, and then discontinued given his known CHF. This is considered resolved at the time of discharge. (5) Chronic anticoagulation The patient is prescribed Coumadin and has an elevated INR of 5.7 upon admission. Evening dose was held x 48 hours, and daily INR's were ordered. The patient was continuously monitored with a goal of INR between 2-3. (6) Tachycardia The patient is noted to be ~120-130 in a telemetry review. I have ordered an echocardiogram that shows mild mitral stenosis, a normal EF of 65-70%, and pulmonary HTN with an RVSP at rest of 57 mmHg. This was considered improved but not resolved at the time of discharge. (7) Pulmonary hypertension Preliminary Echo results show an RVSP at rest of 57 mmHg, causing moderate to severe pulmonary HTN. The clinical picture shows this as he has a large abdominal girth and BLE edema. The treatment of choice is Spironolactone after this acute illness. Plan: Continue to treat acute illness and start Spironolactone late day #2, if the patient seems more hydrated. (8) Diabetes mellitus type 2 in obese The patient takes Metformin at home and has been diabetic for several years. He states that he does not check his blood glucose levels at home. Plan: Hold metformin, start low dose Lantus, SSI. (9) Elevated LFTs ALT & AST were normal upon admission, but after 48 hours started to trend upward : AST was increased to 144, with a max of 381, and upon discharge down to 71. ALT was 94, increased to a max of 320, and decreased to 234 upon discharge. The total biliruben remained normal throughout at 0.6, a GGT was checked and normal at 36. The patient had a decreased albumin of 2.4 and 3rd spacing was apparent in BLEs and increased abdominal girth. He was on several hepatotoxic agents including Metformin, a statin, and doxazosin. A pharmacy review showed the most likely cause was the patient's course of antibiotics, Cefepime. Although only found in 5% of patients, this went with the improved levels. In the meantime, an HIV, and Hepatitis panel were obtained and are pending at the time of this note. The patient was encouraged to follow up with his PCP. (12) Hypercarbic respiratory failure pt has elevated PCO2 62 in ABGs. unremarkable other components in ABGs. Per night Dr. Graves report pt was very difficult to wake up although pt is hemodynamically stable. CT of head is unremarkable. the exact etiology is unknown. pt present more dizziness. pt is on ICU with BiPAP continue to monitor closely in ICU, will treat underline cause as known. Disposition: The patient was very anxious to go home, although was open to [facility] if the need would arise after his physical therapy evaluation. The patient and his son were informed of the necessary follow up with PCP in one week to ensure improvement of pneumonia. - ALLERGIES Allergies/Adverse Reactions: Allergies Allergy/AdvReac Type Severity Reaction Status Date / Time No Known Drug Allergies Allergy Verified 08/13/15 10:05 - MEDICATIONS Home Medications: Ambulatory Orders Medication Instructions Recorded Confirmed Loratadine [Claritin] 10 mg PO DAILY 08/11/13 04/18/18 Simvastatin 20 mg PO QPM 08/11/13 04/18/18 Brimonidine 0.15% Ophth Drops 1 drops EACHEYE BID 08/13/15 04/18/18 [Alphagan P 0.15% Ophth Drops] Dorzolamide 2% Ophth Drops 1 drops EACHEYE BID 08/13/15 04/18/18 [Trusopt 2% Ophth Drops] Doxazosin Mesylate 4 mg PO QPM 08/13/15 04/18/18 Magnesium Oxide 500 mg PO DAILY 08/13/15 04/18/18 Multivitamin [One-A-Day Essential] 1 tab PO DAILY 08/13/15 04/18/18 Sulfasalazine [Sulfazine] 1,500 mg PO 0800,1600 08/13/15 04/18/18 Warfarin [Coumadin] 2.5 mg PO TUTHSA@1400 12/01/16 04/18/18 Amiodarone [Pacerone] 100 mg PO DAILY 04/18/18 04/18/18 Metformin HCl [Metformin HCl ER] 500 mg PO DAILY 04/18/18 04/18/18 Pantoprazole [Protonix] 40 mg PO QDAC 04/18/18 04/18/18 Timolol 0.5% Ophth Drops [Timoptic 1 drops EACHEYE BID 04/18/18 04/18/18 0.5% Ophth Drops] Warfarin [Coumadin] 1.25 mg PO SUMOWEFR@1400 04/18/18 04/18/18 Furosemide [Lasix] 20 mg PO DAILY #30 tablet 04/23/18 Metoprolol Succinate [Toprol Xl] 25 mg PO DAILY #60 tablet 04/23/18 Saccharomyces Boulardii [Florastor] 250 mg PO BID 20 Days #40 capsule 04/23/18 Spironolactone [Aldactone] 12.5 mg PO BID #15 tablet 04/23/18 levoFLOXacin [Levofloxacin] 500 mg PO DAILY #10 tablet 04/23/18 predniSONE [Prednisone] 10 mg PO DAILY #3 tab.ds.pk 04/23/18 - PHYSICAL EXAM AT DISCHARGE General Appearance: positive: No acute distress, Alert Eyes Bilateral: positive: Normal inspection, PERRL ENT: positive: ENT inspection nml, Pharynx nml, No signs of dehydration Neck: positive: Nml inspection, Thyroid nml, No JVD Respiratory: positive: Chest non-tender, No respiratory distress, Other ( crackles in bilateral low bases.) Cardiovascular: positive: Irregularly irregular, Tachycardia, Systolic murmur, Decreased pulse(s) Peripheral Pulses: positive: 2+ Abdomen: positive: Non-tender, Nml bowel sounds, Other (obese, soft) Back: positive: Nml inspection Skin: positive: No rash, Warm, Dry, Other (mild chronic jaundice, no scleral icterus) Extremities: positive: Non-tender, Pedal edema (chronic, dependent BLE edema), Joint swelling Neurologic/Psychiatric: positive: Oriented x3, CN's nml (2-12), Weakness, Depressed mood/affect, Other (sluggish speech at times.) Reflexes: Bicep (R): 2+ (equal strength), Bicep (L): 2+ - LABS Result Diagrams: 04/23/18 09:00 04/23/18 09:00 - DIAGNOSTIC IMAGING Diagnostic Imaging Results: Prelim report reviewed, Final report reviewed - FOLLOW UP Follow Up: Disposition: 01 Home, Self Care Condition: Good Prescriptions: Furosemide [Lasix] 20 mg PO DAILY #30 tablet levoFLOXacin [Levofloxacin] 500 mg PO DAILY #10 tablet Metoprolol Succinate [Toprol Xl] 25 mg PO DAILY #60 tablet predniSONE [Prednisone] 10 mg PO DAILY #3 tab.ds.pk Saccharomyces Boulardii [Florastor] 250 mg PO BID 20 Days #40 capsule Spironolactone [Aldactone] 12.5 mg PO BID #15 tablet Diet: Cardiac Activity Restrictions: No Restrictions Shower Restrictions: No Driving Restrictions: No Assistance Devices: Cane Weight Bearing: Full Weight Additional Instructions or Follow Up instructions: You were admitted for pneumonia and required oxygen at first. You were given IV antibiotics, IV steroids and nebulizer treatments. You became increasingly confused and were placed on BiPAP after an aterial blood gas showed you to be in acidosis. This condition improved and you soon did not require oxygen. You underwent a series of testing including a head CT which showed no acute abnormalities, or bleeding. A chest CT showed extra fluid in your lung and a thorancentesis was completed. This sample was sent to the lab and is pending. We find this with really bad pneumonias, but cytology testing may also let us know the cause of the fluid. You also had elevated LFTs, and after stopping your IV antibiotic, these numbers are now nearly normal. In the meantime, a Hepatitis, and HIV panel are pending. You were evaluated by our physical therapist who recommends a home discharge and this is good news! Please continue your antibiotic treatment at home including a probiotic. Please take just 3 more days of prednisone. You were given a second rate control medication called Metoprolol XL. You were still a little fast at the time of discharge, so your PCP and tower cleaner should keep an eye on this. Please STOP your potassium supplement and Lisinopril and start Spironolactone. You have pulmonary hypertension and Spironolactone is the best treatment for this condition. Please follow up with your PCP within one week. - TIME SPENT Time Spent in Discharge (Minutes): 50
--- NOTE | 2018-04-23 12:28 | Discharge Plan ---
Discharge Plan Disposition: Home, Self Care Condition: Good Prescriptions: Furosemide [Lasix] 20 mg PO DAILY #30 tablet levoFLOXacin [Levofloxacin] 500 mg PO DAILY #10 tablet Metoprolol Succinate [Toprol Xl] 25 mg PO DAILY #60 tablet predniSONE [Prednisone] 10 mg PO DAILY #3 tab.ds.pk Saccharomyces Boulardii [Florastor] 250 mg PO BID 20 Days #40 capsule Spironolactone [Aldactone] 12.5 mg PO BID #15 tablet Diet: Cardiac Activity Restrictions: No Restrictions Shower Restrictions: No Driving Restrictions: No Assistance Devices: Cane Weight Bearing: Full Weight Additional Instructions or Follow Up instructions: You were admitted for pneumonia and required oxygen at first. You were given IV antibiotics, IV steroids and nebulizer treatments. You became increasingly confused and were placed on BiPAP after an aterial blood gas showed you to be in acidosis. This condition improved and you soon did not require oxygen. You underwent a series of testing including a head CT which showed no acute abnormalities, or bleeding. A chest CT showed extra fluid in your lung and a thorancentesis was completed. This sample was sent to the lab and is pending. We find this with really bad pneumonias, but cytology testing may also let us know the cause of the fluid. You also had elevated LFTs, and after stopping your IV antibiotic, these numbers are now nearly normal. In the meantime, a Hepatitis, and HIV panel are pending. You were evaluated by our physical therapist who recommends a home discharge and this is good news! Please continue your antibiotic treatment at home including a probiotic. Please take just 3 more days of prednisone. You were given a second rate control medication called Metoprolol XL. You were still a little fast at the time of discharge, so your PCP and photo editor should keep an eye on this. Please STOP your potassium supplement and Lisinopril and start Spironolactone. You have pulmonary hypertension and Spironolactone is the best treatment for this condition. Please follow up with your PCP within one week. No Smoking: If you smoke, Please STOP! Call for help. Follow-up with: Morteza Maurer MD [Primary Care Provider] -
[2018-04-23] MEDS ORDERED: AMIODARONE 200 MG TABLET PO SCH (13:00)
[2018-04-23 13:27] VITALS: BP 138/61
[2018-04-25 08:56] LABS: HEPATITIS B SURFACE ANTIGEN NON-REACTIVE (NON-REACTIVE)
[2018-04-25 08:57] LABS: HEPATITIS A IGM NON-REACTIVE (NON-REACTIVE); HEPATITIS B CORE ANTIBODY IGM NON-REACTIVE (NON-REACTIVE); HEPATITIS B SURFACE ANTIGEN NON-REACTIVE (NON-REACTIVE); HEPATITIS C ANTIBODY NON-REACTIVE (NON-REACTIVE)
[2018-04-25 15:21] LABS: HIV AG/AB 4TH GEN NON-REACTIVE (NON-REACTIVE)
[2018-04-26 16:17] LABS: HCV RNA QNT <1.18 NOT DETECTED Log IU/mL (NOT DETECTED); HCV RNA QUANT RT PCR <15 NOT DETECTED IU/mL (NOT DETECTED)
[2018-04-26 18:25] LABS: HEPATITIS BE ANTIGEN NONREACTIVE
[2018-04-29 13:26] LABS: HEPATITIS C VIRAL RNA GENOTYPE NOT DETECTED
== END 2018-04-23 13:43 | disposition home or self-care (01) | DRG 177 ==
LOC: ED 08:52 → MS2 11:22 → ICU 04-22 16:11
PROVIDERS: ADMIT Nurse Practitioner; ATTEND Nurse Practitioner
PROC: 0W993ZX Drainage of Right Pleural Cavity, Percutaneous Approach, Diagnostic (ICD-10-PCS; principal; 2018-04-22)
DX: J18.1 Lobar pneumonia, unspecified organism (principal); B37.1 Pulmonary candidiasis; I10 Essential (primary) hypertension; E11.9 Type 2 diabetes mellitus without complications; J96.01 Acute respiratory failure with hypoxia; J96.02 Acute respiratory failure with hypercapnia; J90 Pleural effusion, not elsewhere classified; I48.92 Unspecified atrial flutter; I13.0 Hypertensive heart and chronic kidney disease with heart failure and stage 1 through stage 4 chronic kidney disease, or unspecified chronic kidney disease; I50.32 Chronic diastolic (congestive) heart failure; E87.2 Acidosis; E11.22 Type 2 diabetes mellitus with diabetic chronic kidney disease; N18.3 Chronic kidney disease, stage 3 (moderate); D64.9 Anemia, unspecified; E11.42 Type 2 diabetes mellitus with diabetic polyneuropathy; I48.2 Chronic atrial fibrillation; E86.0 Dehydration; I27.20 Pulmonary hypertension, unspecified; R74.8 Abnormal levels of other serum enzymes; T36.1X5A Adverse effect of cephalosporins and other beta-lactam antibiotics, initial encounter; Y92.230 Patient room in hospital as the place of occurrence of the external cause; K76.0 Fatty (change of) liver, not elsewhere classified; E66.9 Obesity, unspecified; E78.5 Hyperlipidemia, unspecified; M06.9 Rheumatoid arthritis, unspecified; K21.9 Gastro-esophageal reflux disease without esophagitis; N40.1 Benign prostatic hyperplasia with lower urinary tract symptoms; R35.1 Nocturia; R35.0 Frequency of micturition; I05.0 Rheumatic mitral stenosis; H40.9 Unspecified glaucoma; Z68.32 Body mass index [BMI] 32.0-32.9, adult; Z79.01 Long term (current) use of anticoagulants; Z79.84 Long term (current) use of oral hypoglycemic drugs; Z85.46 Personal history of malignant neoplasm of prostate; Z79.899 Other long term (current) drug therapy; Z87.891 Personal history of nicotine dependence
CPT/HCPCS: 32555; 36415; 36600; 70450; 71045; 71046; 71260; 76705; 80048; 80053; 80074; 81001; 81003; 81599; 82378; 82465; 82803; 82947; 82977; 83036; 83605; 83615; 83690; 83735; 83880; 84478; 84484; 85025; 85610; 86317; 86707; 87040; 87070; 87086; 87150; 87205; 87340; 87350; 87389; 87522; 87902; 88108; 88305; 93005; 93306; 94640; 94660; 99283; 99284

== ENCOUNTER 2018-04-28 12:15 | Outpatient (CLI) | payer MEDICARE, OTHER ==
[2018-04-28 18:39] LABS: BASOPHILS % (AUTO) 0.4 %; EOSINOPHILS % (AUTO) 0.2 %; HGB - HEMOGLOBIN 10.7 g/dL (14.0-18.0); MEAN CORPUSCULAR HEMOGLOBIN 27.9 pg (27.0-31.0); MEAN CORPUSCULAR HGB CONC 30.7 g/dL (32.0-36.0); MEAN PLATELET VOLUME 8.3 fL (7.4-11.4); MONOCYTES % (AUTO) 9.5 %; NEUTROPHILS % (AUTO) 83.9 %; PLT - PLATELET COUNT 566 10^3/uL (130-450); RED BLOOD COUNT 3.82 10^6/uL (4.70-6.10); WHITE BLOOD COUNT 21.6 x10^3/uL (4.8-10.8)
[2018-04-28 18:48] LABS: ABNORMAL LYMPHS % (MANUAL) 0 %; BAND NEUTROPHILS % (MANUAL) 0 %
[2018-04-28 19:07] LABS: BASOPHILS # (MANUAL) 0.2 10^3/uL (0-0.1); BASOPHILS % (MANUAL) 1 %; DIFFERENTIAL COMMENT MANUAL DIFFERENTIAL; LYMPHOCYTES # (MANUAL) 1.3 10^3/uL (1.5-3.5); LYMPHOCYTES % (MANUAL) 6 %; MONOCYTES # (MANUAL) 1.3 10^3/uL (0.0-1.0); NEUTROPHILS # (MANUAL) 18.8 10^3/uL (1.5-6.6); NEUTROPHILS % (MANUAL) 87 %; PLATELET ESTIMATE, MANUAL INCREASED (>450,000) (NORMAL); PLATELET MORPHOLOGY NORMAL APPEARANCE (NORMAL)
[2018-04-28 19:12] LABS: ALBUMIN 2.7 g/dL (3.2-5.5); ALBUMIN/GLOBULIN RATIO 0.7 (1.0-2.2); BILIRUBIN,TOTAL 0.5 mg/dL (0.2-1.0); CALCIUM 8.6 mg/dL (8.5-10.3); CREATININE 1.3 mg/dL (0.6-1.2); MAGNESIUM 1.6 mg/dL (1.7-2.8); TOTAL PROTEIN 6.6 g/dL (6.7-8.2)
== END 2018-04-28 12:16 ==
LOC: LAB.WCP 12:15
PROVIDERS: ATTEND Physician Assistant
DX: I27.20 Pulmonary hypertension, unspecified (principal); J18.9 Pneumonia, unspecified organism; I48.0 Paroxysmal atrial fibrillation; R06.02 Shortness of breath; R00.0 Tachycardia, unspecified
CPT/HCPCS: 36415; 80053; 83735; 83880; 85025

== ENCOUNTER 2018-05-09 08:00 | Outpatient (CLI) | payer MEDICARE, OTHER ==
[2018-05-09 12:53] LABS: BASOPHILS # (AUTO) 0.1 10^3/uL (0.0-0.1); BASOPHILS % (AUTO) 1.4 %; EOSINOPHILS # (AUTO) 0.2 10^3/uL (0.0-0.7); EOSINOPHILS % (AUTO) 2.2 %; HGB - HEMOGLOBIN 10.8 g/dL (14.0-18.0); LYMPHOCYTES # (AUTO) 1.1 10^3/uL (1.5-3.5); LYMPHOCYTES % (AUTO) 15.3 %; MEAN CORPUSCULAR HEMOGLOBIN 28.7 pg (27.0-31.0); MEAN CORPUSCULAR HGB CONC 32.1 g/dL (32.0-36.0); MEAN CORPUSCULAR VOLUME 89.5 fL (80.0-94.0); MEAN PLATELET VOLUME 8.6 fL (7.4-11.4); MONOCYTES % (AUTO) 13.9 %; NEUTROPHILS # (AUTO) 4.7 10^3/uL (1.5-6.6); NEUTROPHILS % (AUTO) 67.2 %; PLT - PLATELET COUNT 384 10^3/uL (130-450); RED BLOOD COUNT 3.77 10^6/uL (4.70-6.10)
[2018-05-09 13:10] LABS: THYROID STIMULATING HORMONE 12.02 uIU/mL (0.34-5.60)
[2018-05-09 13:34] LABS: ALBUMIN 2.5 g/dL (3.2-5.5); ALBUMIN/GLOBULIN RATIO 0.7 (1.0-2.2); ALKALINE PHOSPHATASE 84 IU/L (42-121); ALT ALANINE AMINOTRANSFERASE 22 IU/L (10-60); AST ASPARTATE AMINOTRANSFERASE 20 IU/L (10-42); BILIRUBIN,TOTAL 0.5 mg/dL (0.2-1.0); BUN - BLOOD UREA NITROGEN < 5 mg/dL (6-20); CALCIUM 8.7 mg/dL (8.5-10.3); CARBON DIOXIDE - CO2 28 mmol/L (21-32); CHLORIDE 99 mmol/L (101-111); CREATININE 1.2 mg/dL (0.6-1.2); GFR - MDRD 58 (>89); GLUCOSE 157 mg/dL (70-100); SODIUM 135 mmol/L (135-145); TOTAL PROTEIN 6.2 g/dL (6.7-8.2)
[2018-05-09 14:18] LABS: FREE T4 (FREE THYROXINE) 0.95 ng/dL (0.58-1.64)
== END 2018-05-09 08:01 | disposition home or self-care (01) ==
LOC: LAB.WCP 08:00
PROVIDERS: ATTEND Family Medicine
DX: J18.9 Pneumonia, unspecified organism (principal); N18.3 Chronic kidney disease, stage 3 (moderate); I48.0 Paroxysmal atrial fibrillation; I27.20 Pulmonary hypertension, unspecified
CPT/HCPCS: 36415; 80053; 83880; 84439; 84443; 85025

== ENCOUNTER 2018-05-16 09:31 | Outpatient (CLI) | payer MEDICARE, OTHER ==
[2018-05-16 13:23] LABS: ALBUMIN 3.1 g/dL (3.2-5.5); ALBUMIN/GLOBULIN RATIO 0.8 (1.0-2.2); BILIRUBIN,TOTAL 0.6 mg/dL (0.2-1.0); CREATININE 0.9 mg/dL (0.6-1.2); TOTAL PROTEIN 7.1 g/dL (6.7-8.2)
[2018-05-16 13:47] LABS: BASOPHILS # (AUTO) 0.1 10^3/uL (0.0-0.1); BASOPHILS % (AUTO) 0.8 %; EOSINOPHILS # (AUTO) 0.1 10^3/uL (0.0-0.7); EOSINOPHILS % (AUTO) 1.3 %; HGB - HEMOGLOBIN 10.9 g/dL (14.0-18.0); LYMPHOCYTES # (AUTO) 1.2 10^3/uL (1.5-3.5); LYMPHOCYTES % (AUTO) 11.8 %; MEAN CORPUSCULAR HEMOGLOBIN 28.1 pg (27.0-31.0); MEAN PLATELET VOLUME 8.8 fL (7.4-11.4); MONOCYTES # (AUTO) 1.3 10^3/uL (0.0-1.0); MONOCYTES % (AUTO) 13.3 %; NEUTROPHILS # (AUTO) 7.4 10^3/uL (1.5-6.6); NEUTROPHILS % (AUTO) 72.8 %; PLT - PLATELET COUNT 386 10^3/uL (130-450); RED BLOOD COUNT 3.88 10^6/uL (4.70-6.10); RED CELL DISTRIBUTION WIDTH 17.2 % (12.0-15.0); WHITE BLOOD COUNT 10.1 x10^3/uL (4.8-10.8)
== END 2018-05-16 09:32 | disposition home or self-care (01) ==
LOC: LAB.WCP 09:31
PROVIDERS: ATTEND Internal Medicine Rheumatology
DX: M05.79 Rheumatoid arthritis with rheumatoid factor of multiple sites without organ or systems involvement (principal)
CPT/HCPCS: 36415; 80053; 85025; 85651

== ENCOUNTER 2018-05-19 08:00 | Outpatient (CLI) | payer MEDICARE, OTHER | END 2018-05-19 08:01 | disposition home or self-care (01) | LOC: LAB.R 08:00 | PROVIDERS: ATTEND Family Medicine | DX: R19.7 Diarrhea, unspecified (principal) | CPT/HCPCS: 81599; 83630; 87045; 87046; 87493 ==

== ENCOUNTER 2018-05-24 09:15 | Outpatient (CLI) | payer MEDICARE, OTHER ==
--- NOTE | 2018-05-24 10:35 | CT Report ---
Procedure Date: 05/24/2018 Accession Number: [id number] / [id number] Procedure: CT - Chest W/O CPT Code: FULL RESULT: EXAM: Chest W/O DATE: 05/24/2018 9:38 AM CLINICAL HISTORY: PLEURAL EFFUSION,RIGHT COMPARISON: 04/19/2018. TECHNIQUE: Routine helical CT imaging was performed through the chest. IV contrast: None. Reconstructions: Coronal and sagittal. In accordance with CT protocol optimization, one or more of the following dose reduction techniques were utilized for this exam: automated exposure control, adjustment of mA and/or KV based on patient size, or use of iterative reconstructive technique. FINDINGS: Lungs/Pleura: There has been an interval decrease in size of the moderate-sized loculated right pleural effusion with associated consolidation which is also decreased. Within the aerated lung, no mass or significant nodule is detected. The left lung remains clear. There is no pneumothorax. Mediastinum: There is no lymphadenopathy or mass. The great vessels and coronary arteries are calcified. The heart is normal for size without pericardial effusion. Bones: Unremarkable. Visualized Abdomen: Unremarkable. Other: None. IMPRESSION: Interval decrease in loculated right pleural effusion and associated consolidation. The etiology of the effusion remains unclear, malignancy should be excluded. RADIA
== END 2018-05-24 09:16 | disposition home or self-care (01) ==
LOC: DI 09:15
PROVIDERS: ATTEND Family Medicine
DX: J90 Pleural effusion, not elsewhere classified (principal)
CPT/HCPCS: 71250

== ENCOUNTER 2018-05-26 11:43 | Inpatient (IN) | payer MEDICARE, OTHER ==
[2018-05-26] MEDS ORDERED: METOPROLOL 5 MG/5 ML VIAL IVP STA ×2 (12:14→13:03)
[2018-05-26] MEDS ORDERED: SODIUM CHLORIDE 0.9% 500 ML IV ONE (12:14)
--- NOTE | 2018-05-26 12:19 | ED Physician Documentation ---
History of Present Illness - Stated complaint Stated Complaint: CONGESTION - Chief complaint Chief Complaint: Resp - History obtained from History obtained from: Patient, Family (daughter) - History of Present Illness Timing: Today (82-year-old gentleman with history of atrial fibrillation, pulmonary hypertension who presents with continued fatigue and malaise ever since having pneumonia for which he was hospitalized at the end of February. More acutely today and yesterday developed some right lower chest pain and increased cough productive of clear sputum and shortness of breath. He denies fevers or chills. He has no appetite and has been losing weight rapidly. He had a pleural effusion recently drained on the right, the etiology is unknown, there were no malignant cells on the path and the CT was without a clear cause for it. ) Review of Systems Ten Systems: 10 systems reviewed and negative Constitutional: reports: Fatigue, Weight Loss. denies: Fever, Chills Throat: denies: Dental pain / toothache Cardiac: reports: Chest pain / pressure, Palpitations. denies: Pedal edema, Calf pain Respiratory: reports: Dyspnea, Cough GI: reports: Diarrhea. denies: Abdominal Pain, Nausea, Vomiting PD PAST MEDICAL HISTORY - Past Medical History Cardiovascular: Hypertension, High cholesterol, Atrial fibrillation, Other Respiratory: None Neuro: None Endocrine/Autoimmune: Type 2 diabetes GI: GERD, Other : Benign prostate hypertrophy, Nocturia, Other (prostateCA, TURP x2.) HEENT: Glaucoma, Chronic sinusitis, Dental implants Psych: Claustrophobia Musculoskeletal: Osteoarthritis Derm: Psoriasis - Past Surgical History Past Surgical History: Yes General: Bowel surgery, Colonoscopy, EGD Ortho: Carpal Tunnel surgery HEENT: Cataracts, Tonsil/Adenoidectomy - Present Medications Home Medications: Ambulatory Orders Medication Instructions Recorded Confirmed Simvastatin 20 mg PO QPM 08/11/13 04/18/18 Dorzolamide 2% Ophth Drops 1 drops EACHEYE BID 08/13/15 04/18/18 [Trusopt 2% Ophth Drops] Multivitamin [One-A-Day Essential] 1 tab PO DAILY 08/13/15 04/18/18 Sulfasalazine [Sulfazine] 1,500 mg PO 0800,1600 08/13/15 04/18/18 Warfarin [Coumadin] 2.5 mg PO TUTHSA@1400 12/01/16 04/18/18 Amiodarone [Pacerone] 100 mg PO DAILY 04/18/18 04/18/18 Timolol 0.5% Ophth Drops [Timoptic 1 drops EACHEYE BID 04/18/18 04/18/18 0.5% Ophth Drops] Warfarin [Coumadin] 1.25 mg PO SUMOWEFR@1400 04/18/18 04/18/18 Metoprolol Tartrate 05/26/18 - Allergies Allergies/Adverse Reactions: Allergies Allergy/AdvReac Type Severity Reaction Status Date / Time No Known Drug Allergies Allergy Verified 05/26/18 11:57 - Social History Does the pt smoke?: No Smoking Status: Former smoker Does the pt drink ETOH?: Yes Does the pt have substance abuse?: No - Family History Family history: reports: Non contributory - Immunizations Immunizations are current?: Yes - POLST Patient has POLST: No POLST Status: Full Code PD ED PE NORMAL - Vitals Vital signs reviewed: Yes (Heart rate in the 160s) - General General: Alert and oriented X 3, No acute distress, Other (Pale) - HEENT HEENT: PERRL, EOMI - Neck Neck: Supple, no meningeal sign, No bony TTP - Cardiac Cardiac: Other (Rapid and irregular without murmur) - Respiratory Respiratory: Other (Mildly tachypneic, diminished with crackles at the right base) - Abdomen Abdomen: Normal bowel sounds, Soft, Non tender - Back Back: No CVA TTP, No spinal TTP - Derm Derm: Normal color, Warm and dry - Extremities Extremities: No edema (Appears basically euvolemic to slightly hypovolemic) - Neuro Neuro: Alert and oriented X 3, Normal speech Results - Vitals Vitals: Vital Signs - 24 hr 05/26/18 05/26/18 11:53 14:01 Temperature 36.4 C L Heart Rate 165 H 138 H Respiratory 18 28 H Rate Blood Pressure 108/72 110/97 H O2 Saturation 92 94 Oxygen O2 Source [] Room air O2 Source Nasal cannula Oxygen Flow Rate 7 - EKG (time done) 1224 Rate: Rate (enter#) (150) Rhythm: Atrial fibrillation (with RVR) Intervals: RBBB, Other (LAFB) Ischemia: Non specific changes (Kind of diffusely flattened T-wave with very mild ST depression especially anteriorly and laterally.) Computer interpretation: Agree with computer - Labs Labs: Laboratory Tests 05/26/18 05/26/18 05/26/18 12:30 12:30 12:30 WBC 33.6 H RBC 3.85 L Hgb 10.4 L Hct 33.3 L MCV 86.3 MCH 27.0 MCHC 31.3 L RDW 17.7 H Plt Count 532 H MPV 8.2 Neut # (Auto) 30.4 H Lymph # (Auto) 0.9 L [place] # (Auto) 2.1 H Eos # (Auto) 0.0 Baso # (Auto) 0.2 H Absolute Nucleated RBC 0.02 Nucleated RBC % 0.1 Manual Slide Review Indicated RBC Morph Micro Appear 1+ POLYCHROMASIA PT > 120.0 H* INR > 10.0 H* VBG pH VBG pCO2 VBG pO2 VBG HCO3 VBG Total CO2 VBG O2 Saturation VBG Base Excess Sodium 135 Potassium 4.5 Chloride 96 L Carbon Dioxide 28 Anion Gap 11.0 BUN 43 H Creatinine 1.2 Estimated GFR (MDRD) 58 L Glucose 213 H Lactic Acid Calcium 8.9 Magnesium 1.9 Total Bilirubin 0.9 AST 91 H ALT 92 H Alkaline Phosphatase 157 H Troponin I B-Natriuretic Peptide Total Protein 6.9 Albumin 2.6 L Globulin 4.3 H Albumin/Globulin Ratio 0.6 L Lipase 34 05/26/18 05/26/18 05/26/18 12:30 12:30 12:30 WBC RBC Hgb Hct MCV MCH MCHC RDW Plt Count MPV Neut # (Auto) Lymph # (Auto) [place] # (Auto) Eos # (Auto) Baso # (Auto) Absolute Nucleated RBC Nucleated RBC % Manual Slide Review RBC Morph Micro Appear PT INR VBG pH VBG pCO2 VBG pO2 VBG HCO3 VBG Total CO2 VBG O2 Saturation VBG Base Excess Sodium Potassium Chloride Carbon Dioxide Anion Gap BUN Creatinine Estimated GFR (MDRD) Glucose Lactic Acid 1.9 Calcium Magnesium Total Bilirubin AST ALT Alkaline Phosphatase Troponin I 0.29 B-Natriuretic Peptide 723 H Total Protein Albumin Globulin Albumin/Globulin Ratio Lipase 05/26/18 12:35 WBC RBC Hgb Hct MCV MCH MCHC RDW Plt Count MPV Neut # (Auto) Lymph # (Auto) [place] # (Auto) Eos # (Auto) Baso # (Auto) Absolute Nucleated RBC Nucleated RBC % Manual Slide Review RBC Morph Micro Appear PT INR VBG pH 7.391 VBG pCO2 47.5 VBG pO2 27.2 VBG HCO3 28.2 H VBG Total CO2 29.6 H VBG O2 Saturation 48.5 L VBG Base Excess 2.6 H Sodium Potassium Chloride Carbon Dioxide Anion Gap BUN Creatinine Estimated GFR (MDRD) Glucose Lactic Acid Calcium Magnesium Total Bilirubin AST ALT Alkaline Phosphatase Troponin I B-Natriuretic Peptide Total Protein Albumin Globulin Albumin/Globulin Ratio Lipase - Rads (name of study) 1v chest Radiology: EMP read contemporaneously (Increasing right pleural effusion and density.) PD MEDICAL DECISION MAKING - ED course ED course: 82-year-old gentleman presents with worsening fatigue and productive cough in the setting of chronic A. fib with significant RVR here. He was loaded with 2 doses of IV Lopressor without significant change in his rate. Diagnostics demonstrated very supratherapeutic INR for which He was given a small dose of vitamin K p.o., there is no evidence of active bleeding. He also has an indeterminant troponin, high BNP, relatively unremarkable venous blood gas, white count of 33,000, and a recurrent pleural effusion on the right of unclear etiology. After the IV Lopressor he was administered IV amiodarone, he had noted that he missed his morning's dose because he did not take any of his meds because of poor appetite. About two [address] into that load, he had received about 100 mg he had a tonic-clonic seizure. He was attended to immediately by me and never lost his pulse. He was postictal but recovered. His daughter at the bedside thought he was probably not full code but the H&P from the last visit 2 months ago suggested that he was full code. Advanced airway interventions were not needed at that time. I did order broad-spectrum antibiotics, specifically Zosyn and vancomycin given potential for hospital- acquired pneumonia given that elevated white blood cell count and recurrent pleural effusion on x-ray. I spoke with Dr. Camarillo for admission at 2:30 PM. - Critical Care Time(min): 45 Time Includes: Direct patient care, Review records, Reassess patient, Document care, Coordinate care, Medical consult, Family consult for tx [facility] Data interpretation: Labs, Pulse ox Procedures included in critical care time: Peripheral IV Procedures excluded from critical care time: EKG - Sepsis Event Vital Signs: Vital Signs - 24 hr 05/26/18 05/26/18 11:53 14:01 Temperature 36.4 C L Heart Rate 165 H 138 H Respiratory 18 28 H Rate Blood Pressure 108/72 110/97 H O2 Saturation 92 94 Oxygen O2 Source [] Room air O2 Source Nasal cannula Oxygen Flow Rate 7 Departure - Departure Disposition: 66 [facility] DC/Xfer Clinical Impression: Supratherapeutic INR, Elevated troponin, CKD (chronic kidney disease) stage 3, GFR 30-59 ml/min Atrial fibrillation Qualifiers: Atrial fibrillation type: paroxysmal Qualified Code(s): I48.0 - Paroxysmal atrial fibrillation CHF (congestive heart failure) Qualifiers: Heart failure type: unspecified Heart failure chronicity: acute on chronic Qualified Code(s): I50.9 - Heart failure, unspecified Condition: Serious
[2018-05-26 12:50] LABS: BASOPHILS # (AUTO) 0.2 10^3/uL (0.0-0.1); BASOPHILS % (AUTO) 0.5 %; HGB - HEMOGLOBIN 10.4 g/dL (14.0-18.0); LYMPHOCYTES # (AUTO) 0.9 10^3/uL (1.5-3.5); LYMPHOCYTES % (AUTO) 2.8 %; MEAN CORPUSCULAR HGB CONC 31.3 g/dL (32.0-36.0); MEAN CORPUSCULAR VOLUME 86.3 fL (80.0-94.0); MEAN PLATELET VOLUME 8.2 fL (7.4-11.4); MONOCYTES # (AUTO) 2.1 10^3/uL (0.0-1.0); MONOCYTES % (AUTO) 6.2 %; NEUTROPHILS # (AUTO) 30.4 10^3/uL (1.5-6.6); NEUTROPHILS % (AUTO) 90.5 %; PLT - PLATELET COUNT 532 10^3/uL (130-450); RED BLOOD COUNT 3.85 10^6/uL (4.70-6.10); RED CELL DISTRIBUTION WIDTH 17.7 % (12.0-15.0); WHITE BLOOD COUNT 33.6 x10^3/uL (4.8-10.8)
[2018-05-26 12:53] LABS: VBG BASE EXCESS 2.6 mmol/L ([, -2 - +2]); VBG PCO2 47.5 mmHg (41-51); VBG PH 7.391 (7.31-7.41); VBG PO2 27.2 mmHg (25-47); VBG TOTAL CO2 29.6 mmol/L (24-29)
[2018-05-26 12:59] LABS: ALBUMIN 2.6 g/dL (3.2-5.5); ALBUMIN/GLOBULIN RATIO 0.6 (1.0-2.2); BILIRUBIN,TOTAL 0.9 mg/dL (0.2-1.0); CALCIUM 8.9 mg/dL (8.5-10.3); CREATININE 1.2 mg/dL (0.6-1.2); MAGNESIUM 1.9 mg/dL (1.7-2.8); TOTAL PROTEIN 6.9 g/dL (6.7-8.2)
[2018-05-26 13:02] LABS: PT - PROTHROMBIN TIME > 120.0 secs (9.9-12.6)
[2018-05-26 13:03] LABS: INR > 10.0 (0.8-1.2)
[2018-05-26] MEDS ORDERED: PHYTONADIONE 10 MG/ML AMP PO ONE (13:03)
[2018-05-26] MEDS ORDERED: CHERRY SYRUP 10 ML UDC PO ONE (13:03)
--- NOTE | 2018-05-26 13:35 | XRAY Report ---
Procedure Date: 05/26/2018 Accession Number: [id number] / [id number] Procedure: XR - Chest 1 View X-Ray CPT Code: 81464 FULL RESULT: EXAM: CHEST RADIOGRAPHY EXAM DATE: 05/26/2018 01:09 PM. CLINICAL HISTORY: Dyspnea. Cough and congestion. COMPARISON: CHEST 2 VIEW PA/LAT 05/19/2018 10:47 AM CHEST W/O 05/24/2018 9:37 AM. TECHNIQUE: 1 view. FINDINGS: Lungs/Pleura: Right pleural fluid and right basilar pulmonary opacity has increased compared to the prior radiographs on 05/19/2018. No pneumothorax. The left lung is clear. Mediastinum: Within exam limitations, the cardiomediastinal contour is stable. Other: No acute osseous abnormality. IMPRESSION: Right pleural fluid and density of right basilar pulmonary consolidation have increased compared to prior chest radiographs on 05/19/2018. [facility]
[2018-05-26] MEDS ORDERED: diltiaZEM INJ 5 MG/ML VIAL IVP STA (13:59)
[2018-05-26] MEDS ORDERED: PIPERACILLIN/TAZOBACTAM 4.5 GM in SODIUM CHLORIDE 0.9% MINIBAG 100 ML IV STA (14:29)
[2018-05-26] MEDS ORDERED: VANCOMYCIN INJ 1.5 GM in SODIUM CHLORIDE 0.9% 500 ML IV STA (14:29)
[2018-05-26] MEDS: AMIODARONE 150 MG/3 ML VIAL IVP STA (14:31)
[2018-05-26] MEDS ORDERED: TEMAZEPAM 15 MG CAPSULE PO PRN (14:59)
[2018-05-26] MEDS ORDERED: MORPHINE 2 MG/ML SYRINGE IVP PRN (14:59)
[2018-05-26] MEDS ORDERED: PROCHLORPERAZINE 10 MG/2 ML VIAL IVP PRN (14:59)
[2018-05-26] MEDS ORDERED: IBUPROFEN 600 MG TABLET PO PRN (14:59)
--- NOTE | 2018-05-26 15:32 | CT Report ---
Procedure Date: 05/26/2018 Accession Number: [id number] / [id number] Procedure: CT - Head W/O CPT Code: FULL RESULT: EXAM: CT HEAD EXAM DATE: 05/26/2018 03:01 PM. CLINICAL HISTORY: New seizure, high INR. COMPARISON: CT head without contrast 04/22/2018. MR orbits 11/17/2006. TECHNIQUE: Multiaxial CT images were obtained from the foramen magnum to the vertex. Reformats: Coronal. IV contrast: None. In accordance with CT protocol optimization, one or more of the following dose reduction techniques were utilized for this exam: automated exposure control, adjustment of mA and/or KV based on patient size, or use of iterative reconstructive technique. FINDINGS: Parenchyma: No intraparenchymal hemorrhage. No evidence of mass, midline shift, or CT findings of infarction. Rhoades-white differentiation is distinct. Mild diffuse chronic microangiopathic white matter changes are evident. Extraaxial Spaces: Normal for age. No subdural or epidural collections identified. Ventricles: Normal in configuration, mildly prominent, commensurate with the sulcal enlargement in keeping with age-related volume loss. Sinuses and Orbits: Imaged paranasal sinuses, orbits, and mastoids show no significant abnormality. Bones: No fracture. No suspicious focal osseous lesion. There is minimal to mild erosion of the visualized odontoid process with prominent soft tissue posteriorly, similar to remote 2006 MRI, possibly degenerative or inflammatory in etiology. Other: None. IMPRESSION: No acute intracranial abnormality, specifically no intracranial hemorrhage. [facility]
--- NOTE | 2018-05-26 15:56 | HISTORY & PHYSICAL EXAMINATION ---
Chief Complaint - Chief Complaint Chief Complaint: Shortness of breath History of Present Illness - Admitted From Admitted From:: Home - History Obtained From History obtained from: Patient, daughter - History of Present Illness HPI Comment/Other: Mr. Jazzmine Singh is a very pleasant 82-year-old gentleman with an extensive past medical history significant for multiple comorbidities including but not limited to chronic atrial fibrillation, congestive heart failure, Hypertension, type 2 diabetes mellitus, hyperlipidemia, rheumatoid arthritis, psoriasis, gastroesophageal reflux disease, diverticulosis, benign prostatic hyperplasia, prostate cancer, Monsivais's palsy, peripheral neuropathy, degenerative joint disease , chronic kidney disease stage III, and a pleural effusion which was addressed a couple of months ago at [facility]. He was treated for pneumonia at the end of February and says that since then he has had periods of shortness of breath which typically last 10-15 minutes and are self resolving; today however his shortness of breath did not resolve and after an hour he called his daughter who came from [place] and brought him to the hospital. Upon presentation to the hospital the patient was found to be afebrile with a cough and in atrial fibrillation with a rate in the 160s. Patient was also found to have diminished breath sounds at the right base. Lab work showed the patient had a slightly elevated troponin at 0.29 with a higher than normal BUN at 42 and a creatinine of 1.2. A BNP was 723 and the patient's leukocyte count was 33,000. Also while in the emergency department the patient had a seizure; to the best of anyone's knowledge this is the first and only time the patient has had a seizure. This was also self resolving and the patient was postictal for about 15 or 20 minutes following the seizure. A chest x-ray was done which showed that the patient has pleural effusion, which was essentially corrected in May has come back and is approximately one third of the the right side of his chest. History - Past Medical History Cardiovascular: reports: Hypertension, High cholesterol, Atrial fibrillation, Other Respiratory: reports: None Neuro: reports: None Endocrine/Autoimmune: reports: Type 2 diabetes GI: reports: GERD, Other : reports: Benign prostate hypertrophy, Nocturia, Other (prostateCA, TURP x2.) HEENT: reports: Glaucoma, Chronic sinusitis, Dental implants Psych: reports: Claustrophobia Musculoskeletal: reports: Osteoarthritis Derm: reports: Psoriasis MRSA Hx?: No - Past Surgical History General: reports: Bowel surgery, Colonoscopy, EGD Ortho: reports: Carpal Tunnel surgery HEENT: reports: Cataracts, Tonsil/Adenoidectomy - Family & Social History Family History: Mother: , Father: Family History Comment/Other: Patient's mother in childbirth in the patient 's father of heart failure. There is a history of strokes in a grandmother. There is no history of cancer or COPD in the family that the patient is aware of. Living arrangement: At home Living Situation: Alone Social History [place]: [place] 3 grown children. He had a who in 2004, and since then the patient has not re-. He is retired from the [employer]. He denies illicit drug use, alcohol use or tobacco use. He wishes to be a FULL code. - Substance History Use: Uses substance without health or social issues: NONE - POLST Patient has POLST: No POLST Status: Full Code Meds/Allgy - Home Medications Home Medications: Ambulatory Orders Medication Instructions Recorded Confirmed Simvastatin 20 mg PO QPM 08/11/13 05/26/18 Dorzolamide 2% Ophth Drops 1 drops EACHEYE BID 08/13/15 05/26/18 [Trusopt 2% Ophth Drops] Sulfasalazine [Sulfazine] 1,500 mg PO 0800,1700 08/13/15 05/26/18 Warfarin [Coumadin] 2.5 mg PO SUMOTUTHFR@1700 12/01/16 05/26/18 Timolol 0.5% Ophth Drops [Timoptic 1 drops EACHEYE BID 04/18/18 05/26/18 0.5% Ophth Drops] Warfarin [Coumadin] 1.25 mg PO WESA@1700 04/18/18 05/26/18 Amiodarone HCl 100 mg PO DAILY 05/26/18 05/26/18 Brimonidine 0.15% Ophth Drops 1 drops EACHEYE BID 05/26/18 05/26/18 [Alphagan P 0.15% Ophth Drops] Metoprolol Tartrate 50 mg PO BID 05/26/18 05/26/18 Multivitamin W/Minerals [Theragran 1 tab PO DAILY 05/26/18 05/26/18 M] - Allergies Allergies/Adverse Reactions: Allergies Allergy/AdvReac Type Severity Reaction Status Date / Time No Known Drug Allergies Allergy Verified 05/26/18 11:57 Review of Systems - Constitutional Constitutional: reports: Fatigue. denies: Fever, Chills, Malaise, Diaphoresis - Eyes Eyes: denies: Pain, Irritation, Amaurosis, Blurred vision, Dipolpia - Ears, Nose & Throat Ears, Nose & Throat: denies: Ear pain, Hearing loss, Tinnitus, Vertigo, Nasal discharge, Nosebleeds - Cardiovascular Cariovascular: denies: Irregular heart rate, Palpitations, Chest pain, Edema, Syncope - Respiratory Respiratory: reports: SOB at rest, SOB with exertion. denies: Cough, Sputum production, Wheezing, Hemoptysis, Orthopnea, Apnea, Pleuritic pain - Gastrointestinal Gastrointestinal: denies: Abdominal pain, Abdominal distention, Constipation, Diarrhea, Change in bowel habits, Rectal bleeding - Genitourinary Genitourinary: denies: Dysuria, Frequency, Urgency, Hematuria - Musculoskeletal Musculoskeletal: denies: Muscle pain, Back pain, Muscle aches, Stiffness - Integumentary Integumentary: denies: Rash, Pruritis, Lesions, Dryness - Neurological Neurological: denies: General weakness, Focal weakness, Headache, Dizziness - Psychiatric Psychiatric: denies: Depression, Anxiety, Suicidal, Hallucinations - Endocrine Endocrine: denies: Polyuria, Polydypsia, Polyphagia - Hematologic/Lymphatic Hematologic/Lymphatic: denies: Anemia, Bruising, Petechiae, Lymphadenopathy - All Other Systems All Other Systems: reports: Reviewed and negative Exam - Vital Signs Reviewed Vital Signs: Yes Vital Signs: Vital Signs x48h Temp Pulse Resp BP Pulse Ox 05/26/18 14:01 138 H 28 H 110/97 H 94 05/26/18 11:53 36.4 C L 165 H 18 108/72 92 - Physical Exam General Appearance: positive: No acute distress, Alert Eyes Bilateral: positive: Normal inspection, PERRL, EOMI, No lid inflammation, Conjunctivae nml, No scleral icterus ENT: positive: ENT inspection nml, Pharynx nml, No signs of dehydration Neck: positive: Nml inspection, Thyroid nml, No JVD, Trachea midline. negative : Thyromegaly Respiratory: positive: Chest non-tender, No respiratory distress, Breath sounds nml. negative: Wheezes, Rales, Rhonchi Cardiovascular: positive: No murmur, No gallop, Irregularly irregular Peripheral Pulses: positive: 1+ Abdomen: positive: Non-tender, No organomegaly, Nml bowel sounds, No distention. negative: Guarding, Rebound Back: positive: Nml inspection. negative: CVA tenderness (R), CVA tenderness (L ) Skin: positive: Color nml, No rash, Warm, Dry. negative: Cyanosis Extremities: positive: Non-tender, Full ROM, Nml appearance, No pedal edema Neurologic/Psychiatric: positive: Oriented x3, CN's nml (2-12), Motor nml, Sensation nml, Mood/affect nml Conclusion/Plan - Problem List (1) Atrial fibrillation with rapid ventricular response Conclusion/Plan: The patient's heart rate was in the 160s on admission to the emergency department. He was given metoprolol IV and amiodarone and his rate came down to the 100s. We will continue him on metoprolol and amiodarone and monitor his heart rates in the intensive care unit on telemetry. (2) Seizure Conclusion/Plan: The patient had a seizure in the emergency department. This is the only see the patient has ever had. I have placed him on scheduled benzodiazepine administration every 6 hours and will get an MRI of his brain. CT scan of the brain was negative for any acute pathology. (3) CKD (chronic kidney disease) stage 3, GFR 30-59 ml/min Conclusion/Plan: The patient's creatinine today is close to his baseline which is typically between 1.01.2. He is 1.2 today. We will very gently hydrate the patient as he does have a history of elevated pulmonary hypertension. (4) Elevated troponin Conclusion/Plan: The patient's troponin was elevated but this is very easily explained by the rapid atrial fibrillation. We will recheck serial troponins. (5) Pneumonia Conclusion/Plan: A chest x-ray today showed right pleural fluid and density of the right basilar pulmonary consolidation have increased compared to prior chest radiographs on Although he has been afebrile, the patient has elevated white blood cell count of 33,000 and he has been having the shortness of breath. That caused him to come to the emergency department in the first place. We will therefore treat him for hospital acquired pneumonia with ceftazidime and levaquin. Qualifiers: Pneumonia type: due to methicillin-sensitive Staphylococcus aureus (MSSA) Laterality: right Lung location: lower lobe of lung Qualified Code(s): J15.211 - Pneumonia due to Methicillin susceptible Staphylococcus aureus (6) Pulmonary hypertension Conclusion/Plan: The patient's BNP on admission is 723. He has a known history of elevated right- sided heart pressures. I will start him on spironolactone, 25 mg p.o. daily. (7) Type 2 diabetes mellitus Conclusion/Plan: The patient has a history of type 2 diabetes mellitus and had been on metformin. According to his daughter Dr. Maurer took him off of his metformin last week, for reasons unknown to her. We will monitor the patient's blood glucoses and if necessary start him on insulin sliding scale. - Lab Results Lab results reviewed: Yes Fish Bones: 05/26/18 12:30 05/26/18 12:30 - Diagnostic Imaging Results Diagnostic Imaging Results: positive: Final report reviewed Diagnostic Imaging Results Comments: EXAM: CHEST RADIOGRAPHY EXAM DATE: 05/26/2018 01:09 PM. CLINICAL HISTORY: Dyspnea. Cough and congestion. COMPARISON: CHEST 2 VIEW PA/LAT 05/19/2018 10:47 AM CHEST W/O 05/24/2018 9:37 AM. TECHNIQUE: 1 view. FINDINGS: Lungs/Pleura: Right pleural fluid and right basilar pulmonary opacity has increased compared to the prior radiographs on 05/19/2018. No pneumothorax. The left lung is clear. Mediastinum: Within exam limitations, the cardiomediastinal contour is stable. Other: No acute osseous abnormality. IMPRESSION: Right pleural fluid and density of right basilar pulmonary consolidation have increased compared to prior chest radiographs on 05/19/2018. EXAM: CT HEAD EXAM DATE: 05/26/2018 03:01 PM. CLINICAL HISTORY: New seizure, high INR. COMPARISON: CT head without contrast 04/22/2018. MR orbits 11/17/2006. TECHNIQUE: Multiaxial CT images were obtained from the foramen magnum to the vertex. Reformats: Coronal. IV contrast: None. In accordance with CT protocol optimization, one or more of the following dose reduction techniques were utilized for this exam: automated exposure control, adjustment of mA and/or KV based on patient size, or use of iterative reconstructive technique. FINDINGS: Parenchyma: No intraparenchymal hemorrhage. No evidence of mass, midline shift, or CT findings of infarction. Rhoades-white differentiation is distinct. Mild diffuse chronic microangiopathic white matter changes are evident. Extraaxial Spaces: Normal for age. No subdural or epidural collections identified. Ventricles: Normal in configuration, mildly prominent, commensurate with the sulcal enlargement in keeping with age-related volume loss. Sinuses and Orbits: Imaged paranasal sinuses, orbits, and mastoids show no significant abnormality. Bones: No fracture. No suspicious focal osseous lesion. There is minimal to mild erosion of the visualized odontoid process with prominent soft tissue posteriorly, similar to remote 2007 MRI, possibly degenerative or inflammatory in etiology. Other: None. IMPRESSION: No acute intracranial abnormality, specifically no intracranial hemorrhage. - EKG Results EKG Interpreted Independently: Yes EKG Comparison: Old EKG unavailable EKG Findings: Atrial fibrillation with rapid ventricular response Core Measures - Anticipated LOS I expect patient to be DC'd or transferred within 96 hours.: Yes - DVT/VTE - Prophylaxis VTE/DVT Device ordered at admit?: Yes
[2018-05-26] MEDS ORDERED: SPIRONOLACTONE 25 MG TABLET PO SCH (16:00)
[2018-05-26] MEDS: LORazepam 2 MG/ML VIAL IVP SCH ×2 (16:12→21:49)
[2018-05-26] MEDS ORDERED: levoFLOXacin 750 MG/150 ML 750 MG/150 ML BAG IV SCH (17:00)
[2018-05-26] MEDS ORDERED: WARFARIN 2.5 MG TABLET PO SCH (17:00)
[2018-05-26] MEDS: D5.45NS W/20 MEQ KCL 1,000 ML IV SCH (17:28)
[2018-05-26] MEDS: sulfaSALAzine 500 MG TABLET PO SCH (17:29)
[2018-05-26] MEDS: SODIUM CHLORIDE FLUSH 0.9% 10 ML SYRINGE IVP SCH ×2 (17:29→21:49)
[2018-05-26] MEDS: METOPROLOL TARTRATE 50 MG TABLET PO SCH (20:15)
[2018-05-26] MEDS: ATORVASTATIN 10 MG TABLET PO SCH (20:15)
[2018-05-26] MEDS: DORZOLAMIDE 2% OPHTH DROPS EACHEYE SCH (20:15)
[2018-05-26] MEDS: BRIMONIDINE 0.15% OPHTH DROPS 5 ML EACHEYE SCH (20:15)
[2018-05-26] MEDS: TIMOLOL 0.5% OPHTH DROPS EACHEYE SCH (20:16)
[2018-05-26] MEDS ORDERED: NON FORMULARY MED (Simvastatin [Simvastatin] 20 MG) PO SCH (21:00)
[2018-05-26] MEDS: cefTAZidime 2 GM in SODIUM CHLORIDE 0.9% MINIBAG 100 ML IV SCH (21:48)
[2018-05-27 04:15] LABS: BILIRUBIN,URINE NEGATIVE (NEGATIVE); GLUCOSE, URINE (UA) NEGATIVE (NEGATIVE); KETONES,URINE (UA) NEGATIVE (NEGATIVE); LEUKOCYTE ESTERASE, URINE NEGATIVE (NEGATIVE); NITRITE,URINE NEGATIVE (NEGATIVE); OCCULT BLOOD,URINE TRACE-LYSE (NEGATIVE); PROTEIN,URINE TRACE mg/dL (NEGATIVE); UROBILINOGEN,URINE 0.2 (NORMAL) E.U./dL (NORMAL)
[2018-05-27 04:17] LABS: CLARITY,URINE CLEAR (CLEAR)
[2018-05-27] MEDS: SODIUM CHLORIDE FLUSH 0.9% 10 ML SYRINGE IVP PRN ×3 (04:25→15:41)
[2018-05-27] MEDS: LORazepam 2 MG/ML VIAL IVP SCH ×4 (04:25→23:15)
[2018-05-27 04:46] LABS: HGB - HEMOGLOBIN 9.2 g/dL (14.0-18.0); MEAN CORPUSCULAR HEMOGLOBIN 27.2 pg (27.0-31.0); MEAN CORPUSCULAR VOLUME 87.6 fL (80.0-94.0); MEAN PLATELET VOLUME 8.2 fL (7.4-11.4); RED BLOOD COUNT 3.4 10^6/uL (4.70-6.10); RED CELL DISTRIBUTION WIDTH 17.3 % (12.0-15.0)
[2018-05-27 04:49] LABS: PT - PROTHROMBIN TIME 91.7 secs (9.9-12.6)
[2018-05-27 05:00] LABS: CALCIUM 8.2 mg/dL (8.5-10.3); CREATININE 0.8 mg/dL (0.6-1.2); MAGNESIUM 1.8 mg/dL (1.7-2.8); PHOSPHORUS 2.6 mg/dL (2.5-4.6)
[2018-05-27 05:30] LABS: INR 8.8 (0.8-1.2)
[2018-05-27 05:47] LABS: WHITE BLOOD COUNT 42.2 x10^3/uL (4.8-10.8)
[2018-05-27] MEDS: cefTAZidime 2 GM in SODIUM CHLORIDE 0.9% MINIBAG 100 ML IV SCH (06:14)
[2018-05-27] MEDS: PANTOPRAZOLE 40 MG VIAL IVP SCH (06:15)
[2018-05-27] MEDS: D5.45NS W/20 MEQ KCL 1,000 ML IV SCH ×2 (06:47→20:29)
[2018-05-27] MEDS ORDERED: VANCOMYCIN PER PHARMACY 100 GM in SODIUM CHLORIDE 0.9% 250 ML IV SCH (08:00)
[2018-05-27] MEDS: MULTIVITAMIN W/MINERALS TABLET PO SCH (08:18)
[2018-05-27] MEDS: METOPROLOL TARTRATE 50 MG TABLET PO SCH ×2 (08:18→20:28)
[2018-05-27] MEDS: sulfaSALAzine 500 MG TABLET PO SCH ×3 (08:18→18:01)
[2018-05-27] MEDS: AMIODARONE 200 MG TABLET PO SCH (08:19)
[2018-05-27] MEDS: BRIMONIDINE 0.15% OPHTH DROPS 5 ML EACHEYE SCH ×2 (08:22→20:43)
[2018-05-27] MEDS: TIMOLOL 0.5% OPHTH DROPS EACHEYE SCH ×2 (08:22→20:43)
[2018-05-27] MEDS: DORZOLAMIDE 2% OPHTH DROPS EACHEYE SCH ×2 (08:22→20:43)
[2018-05-27] MEDS: POLYETHYLENE GLYCOL 3350 17 GM PACKET PO SCH (08:27)
[2018-05-27] MEDS: PIPERACILLIN/TAZOBACTAM 4.5 GM in SODIUM CHLORIDE 0.9% MINIBAG 100 ML IV SCH ×2 (08:36→13:53)
[2018-05-27] MEDS ORDERED: ENOXAPARIN 80 MG/0.8 ML SYRINGE SUBQ SCH (09:00)
[2018-05-27] MEDS ORDERED: PHYTONADIONE INJ (ADULT) 10 MG in SODIUM CHLORIDE 0.9% 50 ML IV ONE (09:00)
[2018-05-27] MEDS: SODIUM CHLORIDE FLUSH 0.9% 10 ML SYRINGE IVP SCH ×2 (09:09→16:27)
[2018-05-27 09:25] LABS: PT - PROTHROMBIN TIME 81.9 secs (9.9-12.6)
[2018-05-27] MEDS: VANCOMYCIN INJ 1 GM, VANCOMYCIN INJ 250 MG in SODIUM CHLORIDE 0.9% 250 ML IV SCH ×2 (09:30→20:30)
[2018-05-27] MEDS ORDERED: SODIUM CHLORIDE 0.9% 250 ML IV ONE ×2 (09:39→20:22)
[2018-05-27] MEDS ORDERED: VANCOMYCIN 1 GM VIAL ONE ×2 (09:39→20:22)
[2018-05-27 09:43] LABS: INR 7.8 (0.8-1.2)
[2018-05-27] MEDS ORDERED: PHYTONADIONE 10 MG/ML AMP IVP SCH (14:56)
--- NOTE | 2018-05-27 15:28 | PROVIDER PROGRESS NOTE ---
Subjective - Prog Note Date Prog Note Date: 05/27/18 Prog Note Time: 15:45 - Subjective Pt reports feeling: Improved Subjective: The patient says he feels better but is still quite tired and weak. He has a productive cough and is wearing oxygen at 3 L with a saturation of 94%.He denies any fevers or chills, he denies any chest pain. Current Medications - Current Medications Current Medications: Active Medications Generic Name Dose Route Start Last Admin Trade Name Freq PRN Reason Stop Dose Admin Amiodarone HCl 100 mg 05/27/18 09:00 05/27/18 08:19 Pacerone PO 100 mg DAILY TAMIR Administration Atorvastatin Calcium 10 mg 05/26/18 21:00 05/26/18 20:15 Lipitor PO 10 mg QPM TAMIR Administration Potassium Chloride/Dextrose/Sod Cl 1,000 mls @ 75 mls/hr 05/26/18 15:00 05/27 06:47 D5.45ns W/20 Meq Kcl IV 75 mls/hr .[id number] TAMIR Administration Piperacillin Sod/Tazobactam 100 mls @ 200 mls/hr 05/27/18 08:00 05/27/18 14: 49 Sod 4.5 gm/ Sodium Chloride IV Infused Q6H TAMIR Infusion Vancomycin HCl 1 gm/ 250 mls @ 130 mls/hr 05/27/18 09:00 05/27/18 11:40 Vancomycin HCl 250 mg/ Sodium IV Infused Chloride Q12H TAMIR Infusion Ibuprofen 600 mg 05/26/18 14:59 Motrin PO Q6HR PRN Pain 1 to 4 Lorazepam 0.5 mg 05/26/18 16:00 05/27/18 15:40 Ativan Inj (Vial) IVP 0.5 mg Q6H TAMIR Administration Metoprolol Tartrate 50 mg 05/26/18 21:00 05/27/18 08:18 Lopressor PO 50 mg BID TAMIR Administration Morphine Sulfate 2 mg 05/26/18 14:59 Morphine IVP Q2H PRN Pain 8 to 10 Multivitamins/Minerals 1 tab 05/27/18 09:00 05/27/18 08:18 Theragran M PO 1 tab DAILY TAMIR Administration Pantoprazole Sodium 40 mg 05/27/18 07:00 05/27/18 06:15 Protonix IVP 40 mg QDAC TAMIR Administration Dorzolamide 2% Ophth 1 each 05/26/18 21:00 05/27/18 08:22 Drops EACHEYE 1 each BID TAMIR Administration Timolol 0.5% Ophth 1 each 05/26/18 21:00 05/27/18 08:22 Drops EACHEYE 1 each BID TAMIR Administration Brimonidine 0.15% 1 each 05/26/18 21:00 05/27/18 08:22 Ophth Drops 5 Ml EACHEYE 1 each BID TAMIR Administration Polyethylene Glycol 17 gm 05/27/18 09:00 05/27/18 08:27 Miralax PO Not Given DAILY TAMIR Prochlorperazine Edisylate 10 mg 05/26/18 14:59 Compazine Inj IVP Q6HR PRN Nausea / Vomiting Sodium Chloride 10 ml 05/26/18 17:00 05/27/18 09:09 Normal Saline Flush 0.9% IVP 10 ml 0100,0900,1700 TAMIR Administration Sodium Chloride 10 ml 05/26/18 14:59 05/27/18 15:41 Normal Saline Flush 0.9% IVP 10 ml PRN PRN Administration NEEDED PER PROVIDER ORDERS Sulfasalazine 1,500 mg 05/26/18 17:00 05/27/18 08:18 Azulfidine PO 1,500 mg 0800,1700 TAMIR Administration Warfarin Sodium 1.25 mg 05/28/18 17:00 Coumadin PO WESA@1700 [facility] Warfarin Sodium 2.5 mg 05/26/18 17:00 Coumadin PO SUMOTUTHFR@1700 [facility] Simvastatin 20 mg PO QPM 08/11/13 Dorzolamide 2% Ophth Drops [Trusopt 2% Ophth Drops] 1 drops EACHEYE BID Sulfasalazine [Sulfazine] 1,500 mg PO 0800,1700 08/13/15 Warfarin [Coumadin] 2.5 mg PO SUMOTUTHFR@1700 12/01/16 Timolol 0.5% Ophth Drops [Timoptic 0.5% Ophth Drops] 1 drops EACHEYE BID Warfarin [Coumadin] 1.25 mg PO WESA@1700 04/18/18 Amiodarone HCl 100 mg PO DAILY 05/26/18 Brimonidine 0.15% Ophth Drops [Alphagan P 0.15% Ophth Drops] 1 drops EACHEYE BID 05/26/18 Metoprolol Tartrate 50 mg PO BID 05/26/18 Multivitamin W/Minerals [Theragran M] 1 tab PO DAILY 05/26/18 Spironolactone 12.5 mg PO BID 05/26/18 Objective - Vital Signs/Intake & Output Reviewed Vital Signs: Yes Vital Signs: Vital Signs Temp Pulse Pulse Resp BP BP Pulse Ox 05/27/18 14:00 112 H 36 H 126/80 98 05/27/18 13:00 114 H 16 131/81 H 98 05/27/18 12:00 36.6 C 111 H 36 H 122/78 95 05/27/18 11:45 113 H 116/73 05/27/18 11:00 113 H 16 122/78 95 Intake & Output: Intake & Output 05/24/18 05/25/18 05/26/18 05/27/18 23:59 23:59 23:59 23:59 Intake Total 1450 1599.75 Output Total 250 150 Balance 1200 1449.75 - Objective General Appearance: positive: No acute distress, Alert Eyes Bilateral: positive: Normal inspection, PERRL, EOMI, No lid inflammation, Conjunctivae nml, No scleral icterus ENT: positive: ENT inspection nml, Pharynx nml, No signs of dehydration Neck: positive: Nml inspection, Thyroid nml, No JVD, Trachea midline. negative : Thyromegaly Respiratory: positive: Chest non-tender, No respiratory distress, Breath sounds nml. negative: Wheezes, Rales, Rhonchi Cardiovascular: positive: Regular rate & rhythm, No murmur, No gallop Abdomen: positive: Non-tender, No organomegaly, Nml bowel sounds, No distention. negative: Guarding, Rebound Back: positive: Nml inspection. negative: CVA tenderness (R), CVA tenderness (L ) Skin: positive: Color nml, No rash, Warm, Dry. negative: Cyanosis Extremities: positive: Non-tender, Full ROM, Nml appearance, No pedal edema Neurologic/Psychiatric: positive: Oriented x3, CN's nml (2-12), Motor nml, Sensation nml, Mood/affect nml - Lab Results Fish Bones: 05/27/18 04:15 05/27/18 04:15 Other Labs: Lab Results x24hrs 05/27/18 05/27/18 05/27/18 Range/Units 09:05 04:15 04:15 WBC (4.8-10.8) x10^3/uL RBC (4.70-6.10) 10^6/uL Hgb (14.0-18.0) g/dL Hct (42.0-52.0) % MCV (80.0-94.0) fL MCH (27.0-31.0) pg MCHC (32.0-36.0) g/dL RDW (12.0-15.0) % Plt Count (130-450) 10^3/uL MPV (7.4-11.4) fL PT 81.9 H 91.7 H (9.9-12.6) secs INR 7.8 H* 8.8 H* (0.8-1.2) Sodium (135-145) mmol/L Potassium (3.5-5.0) mmol/L Chloride (101-111) mmol/L Carbon Dioxide (21-32) mmol/L Anion Gap (6-13) BUN (6-20) mg/dL Creatinine (0.6-1.2) mg/dL Estimated GFR (MDRD) (>89) Glucose (70-100) mg/dL Calcium (8.5-10.3) mg/dL Phosphorus (2.5-4.6) mg/dL Magnesium (1.7-2.8) mg/dL Troponin I (<0.49) ng/mL Albumin 2.4 L (3.2-5.5) g/dL Urine Color Urine Clarity (CLEAR) Urine pH (5.0-7.5) PH Ur Specific [place] (1.002-1.030) Urine Protein (NEGATIVE) mg/dL Urine Glucose (UA) (NEGATIVE) mg/dL Urine Ketones (NEGATIVE) mg/dL Urine Occult Blood (NEGATIVE) Urine Nitrite (NEGATIVE) Urine Bilirubin (NEGATIVE) Urine Urobilinogen (NORMAL) E.U./dL Ur Leukocyte Esterase (NEGATIVE) Ur Microscopic Review Urine Culture Comments 05/27/18 05/27/18 05/27/18 Range/Units 04:15 04:15 03:55 WBC 42.2 H* (4.8-10.8) x10^3/uL RBC 3.40 L (4.70-6.10) 10^6/uL Hgb 9.2 L (14.0-18.0) g/dL Hct 29.8 L (42.0-52.0) % MCV 87.6 (80.0-94.0) fL MCH 27.2 (27.0-31.0) pg MCHC 31.0 L (32.0-36.0) g/dL RDW 17.3 H (12.0-15.0) % Plt Count 444 (130-450) 10^3/uL MPV 8.2 (7.4-11.4) fL PT (9.9-12.6) secs INR (0.8-1.2) Sodium 136 (135-145) mmol/L Potassium 4.4 (3.5-5.0) mmol/L Chloride 101 (101-111) mmol/L Carbon Dioxide 27 (21-32) mmol/L Anion Gap 8.0 (6-13) BUN 34 H (6-20) mg/dL Creatinine 0.8 (0.6-1.2) mg/dL Estimated GFR (MDRD) 93 (>89) Glucose 206 H (70-100) mg/dL Calcium 8.2 L (8.5-10.3) mg/dL Phosphorus 2.6 (2.5-4.6) mg/dL Magnesium 1.8 (1.7-2.8) mg/dL Troponin I (<0.49) ng/mL Albumin (3.2-5.5) g/dL Urine Color YELLOW Urine Clarity CLEAR (CLEAR) Urine pH 6.0 (5.0-7.5) PH Ur Specific [place] 1.025 (1.002-1.030) Urine Protein TRACE (NEGATIVE) mg/dL Urine Glucose (UA) NEGATIVE (NEGATIVE) mg/dL Urine Ketones NEGATIVE (NEGATIVE) mg/dL Urine Occult Blood TRACE-LYSE (NEGATIVE) Urine Nitrite NEGATIVE (NEGATIVE) Urine Bilirubin NEGATIVE (NEGATIVE) Urine Urobilinogen 0.2 (NORMAL) (NORMAL) E.U./dL Ur Leukocyte Esterase NEGATIVE (NEGATIVE) Ur Microscopic Review NOT INDICATED Urine Culture Comments NOT INDICATED 05/27/18 05/26/18 Range/Units 00:45 18:14 WBC (4.8-10.8) x10^3/uL RBC (4.70-6.10) 10^6/uL Hgb (14.0-18.0) g/dL Hct (42.0-52.0) % MCV (80.0-94.0) fL MCH (27.0-31.0) pg MCHC (32.0-36.0) g/dL RDW (12.0-15.0) % Plt Count (130-450) 10^3/uL MPV (7.4-11.4) fL PT (9.9-12.6) secs INR (0.8-1.2) Sodium (135-145) mmol/L Potassium (3.5-5.0) mmol/L Chloride (101-111) mmol/L Carbon Dioxide (21-32) mmol/L Anion Gap (6-13) BUN (6-20) mg/dL Creatinine (0.6-1.2) mg/dL Estimated GFR (MDRD) (>89) Glucose (70-100) mg/dL Calcium (8.5-10.3) mg/dL Phosphorus (2.5-4.6) mg/dL Magnesium (1.7-2.8) mg/dL Troponin I 0.06 0.09 (<0.49) ng/mL Albumin (3.2-5.5) g/dL Urine Color Urine Clarity (CLEAR) Urine pH (5.0-7.5) PH Ur Specific [place] (1.002-1.030) Urine Protein (NEGATIVE) mg/dL Urine Glucose (UA) (NEGATIVE) mg/dL Urine Ketones (NEGATIVE) mg/dL Urine Occult Blood (NEGATIVE) Urine Nitrite (NEGATIVE) Urine Bilirubin (NEGATIVE) Urine Urobilinogen (NORMAL) E.U./dL Ur Leukocyte Esterase (NEGATIVE) Ur Microscopic Review Urine Culture Comments - Diagnostic Imaging Diagnostic Imaging Results: positive: Final report reviewed Diagnostic Imaging Comments: EXAM: CHEST RADIOGRAPHY EXAM DATE: 05/26/2018 01:09 PM. CLINICAL HISTORY: Dyspnea. Cough and congestion. COMPARISON: CHEST 2 VIEW PA/LAT 05/19/2018 10:47 AM CHEST W/O 05/24/2018 9:37 AM. TECHNIQUE: 1 view. FINDINGS: Lungs/Pleura: Right pleural fluid and right basilar pulmonary opacity has increased compared to the prior radiographs on 05/19/2018. No pneumothorax. The left lung is clear. Mediastinum: Within exam limitations, the cardiomediastinal contour is stable. Other: No acute osseous abnormality. IMPRESSION: Right pleural fluid and density of right basilar pulmonary consolidation have increased compared to prior chest radiographs on 05/19/2018. EXAM: CT HEAD EXAM DATE: 05/26/2018 03:01 PM. CLINICAL HISTORY: New seizure, high INR. COMPARISON: CT head without contrast 04/22/2018. MR orbits 11/17/2006. TECHNIQUE: Multiaxial CT images were obtained from the foramen magnum to the vertex. Reformats: Coronal. IV contrast: None. In accordance with CT protocol optimization, one or more of the following dose reduction techniques were utilized for this exam: automated exposure control, adjustment of mA and/or KV based on patient size, or use of iterative reconstructive technique. FINDINGS: Parenchyma: No intraparenchymal hemorrhage. No evidence of mass, midline shift, or CT findings of infarction. Rhoades-white differentiation is distinct. Mild diffuse chronic microangiopathic white matter changes are evident. Extraaxial Spaces: Normal for age. No subdural or epidural collections identified. Ventricles: Normal in configuration, mildly prominent, commensurate with the sulcal enlargement in keeping with age-related volume loss. Sinuses and Orbits: Imaged paranasal sinuses, orbits, and mastoids show no significant abnormality. Bones: No fracture. No suspicious focal osseous lesion. There is minimal to mild erosion of the visualized odontoid process with prominent soft tissue posteriorly, similar to remote 2006 MRI, possibly degenerative or inflammatory in etiology. Other: None. IMPRESSION: No acute intracranial abnormality, specifically no intracranial hemorrhage. Assessment/Plan - Problem List (1) Atrial fibrillation with rapid ventricular response Impression: The patient's heart rate was in the 160s in the emergency department at admission. He has been given metoprolol and amiodarone and his heart rate is now in the 110s. He is asymptomatic and has not complained of chest pain. He has no significant shortness of breath that cannot be attributed to his pleural effusion. (2) Seizure Impression: The patient had a seizure in the emergency department. This is the only see the patient has ever had. I have placed him on scheduled benzodiazepine administration every 6 hours and will get an MRI of his brain. CT scan of the brain was negative for any acute pathology. (3) CKD (chronic kidney disease) stage 3, GFR 30-59 ml/min Impression: The patient's creatinine today is close to his baseline which is typically between 0.9 and 1.2. He is 0.8 today. We will very gently hydrate the patient as he does have a history of elevated pulmonary hypertension. (4) Elevated troponin Impression: The patient had 3 sets of troponins which began at 0.29 and then progressed to 0.09 and then finally 0.06. (5) Pneumonia Impression: We have been treating the patient with Zosyn, Levaquin, and vancomycin, however due to a suggestion from the pharmacist we will replace the Zosyn with cefepime as the combination of Zosyn and vancomycin can sometimes be very toxic to the renal system. The patient's white blood cell count is at 44,000 today. Despite this he is in not any respiratory distress and is breathing easily on 3 L of oxygen with a saturation of 94%. Qualifiers: Pneumonia type: due to methicillin-sensitive Staphylococcus aureus (MSSA) Laterality: right Lung location: lower lobe of lung Qualified Code(s): J15.211 - Pneumonia due to Methicillin susceptible Staphylococcus aureus (6) Pleural effusion Impression: The patient has a large right-sided pleural effusion which on CT was smaller than on the previous exam but on chest x-ray was larger than one done on 19 May. We are unable to drain this through fluoroscopy as we do not have the necessary equipment according to the radiologist. In speaking with Dr. Zhou , general surgery, he believes that the patient should undergo a thoracotomy and that his chest wall should be open so that the loculated areas of the effusion can be excised and drained properly. At this time the patient is relatively comfortable and if we are able to get his pneumonia under control I believe he will be safe enough to be discharged for an outpatient drainage of the pleural effusion. His white count however keeps going up and is now at 44, 000. We did make changes to the patient's antibiotic regimen and will reassess him in the morning. If the patient is unable to get comfortable from a respiratory standpoint we will transfer him for drainage of the pleural effusion. (7) Pulmonary hypertension Impression: The patient's BNP on admission is 723. He has a known history of elevated right- sided heart pressures. I will start him on spironolactone, 25 mg p.o. daily. (8) Type 2 diabetes mellitus Impression: The patient has a history of type 2 diabetes mellitus and had been on metformin. According to his daughter Dr. Maurer took him off of his metformin last week, for reasons unknown to her. We will monitor the patient's blood glucoses and if necessary start him on insulin sliding scale.
[2018-05-27] MEDS: CEFEPIME 2 GM in SODIUM CHLORIDE 0.9% MINIBAG 100 ML IV SCH (17:36)
[2018-05-27] MEDS: ATORVASTATIN 10 MG TABLET PO SCH (20:28)
[2018-05-28] MEDS: CEFEPIME 2 GM in SODIUM CHLORIDE 0.9% MINIBAG 100 ML IV SCH ×2 (00:37→07:50)
[2018-05-28] MEDS: SODIUM CHLORIDE FLUSH 0.9% 10 ML SYRINGE IVP SCH ×2 (00:52→08:13)
[2018-05-28] MEDS ORDERED: D5.45NS W/20 MEQ KCL 1,000 ML IV SCH (01:02)
[2018-05-28] MEDS ORDERED: FUROSEMIDE 20 MG/2 ML VIAL IVP ONE (01:03)
[2018-05-28] MEDS: LORazepam 2 MG/ML VIAL IVP SCH ×2 (04:50→10:35)
[2018-05-28 05:31] LABS: ALBUMIN 2.4 g/dL (3.2-5.5); ALBUMIN/GLOBULIN RATIO 0.6 (1.0-2.2); BILIRUBIN,TOTAL 0.7 mg/dL (0.2-1.0); CALCIUM 8.6 mg/dL (8.5-10.3); HGB - HEMOGLOBIN 9.8 g/dL (14.0-18.0); MEAN CORPUSCULAR HEMOGLOBIN 27.2 pg (27.0-31.0); MEAN CORPUSCULAR HGB CONC 30.4 g/dL (32.0-36.0); MEAN CORPUSCULAR VOLUME 89.6 fL (80.0-94.0); MEAN PLATELET VOLUME 7.8 fL (7.4-11.4); RED BLOOD COUNT 3.6 10^6/uL (4.70-6.10); RED CELL DISTRIBUTION WIDTH 18.3 % (12.0-15.0); TOTAL PROTEIN 6.2 g/dL (6.7-8.2)
[2018-05-28 05:39] LABS: WHITE BLOOD COUNT 49.1 x10^3/uL (4.8-10.8)
[2018-05-28 05:46] LABS: INR 1.6 (0.8-1.2); PT - PROTHROMBIN TIME 18.2 secs (9.9-12.6)
[2018-05-28] MEDS: SODIUM CHLORIDE FLUSH 0.9% 10 ML SYRINGE IVP PRN (06:14)
[2018-05-28] MEDS: PANTOPRAZOLE 40 MG VIAL IVP SCH (06:14)
[2018-05-28] MEDS: VANCOMYCIN INJ 1 GM, VANCOMYCIN INJ 250 MG in SODIUM CHLORIDE 0.9% 250 ML IV SCH (07:45)
[2018-05-28] MEDS: POLYETHYLENE GLYCOL 3350 17 GM PACKET PO SCH (08:14)
[2018-05-28] MEDS: BRIMONIDINE 0.15% OPHTH DROPS 5 ML EACHEYE SCH (08:16)
[2018-05-28] MEDS: DORZOLAMIDE 2% OPHTH DROPS EACHEYE SCH (08:16)
[2018-05-28] MEDS: TIMOLOL 0.5% OPHTH DROPS EACHEYE SCH (08:16)
--- NOTE | 2018-05-28 10:58 | Discharge Plan ---
Discharge Plan Disposition: 02 Transfer Acute Care Hosp Condition: Serious Diet: Cardiac Activity Restrictions: Activity as Tolerated Shower Restrictions: No Driving Restrictions: No Instruction Topics: Effusion Pleural No Smoking: If you smoke, Please STOP! Call for help. Follow-up with: Morteza Maurer MD [Primary Care Provider] -
--- NOTE | 2018-05-28 11:01 | DISCHARGE SUMMARY ---
Discharge Summary Admit Date: 05/26/18 Discharge Date: 05/28/18 Discharging Provider: Deepti Camarillo DO Primary Care Provider: Morteza Maurer MD Code Status: Attempt Resuscitation Condition at Discharge: Serious Discharge Disposition: 02 Transfer Acute Care Hosp Discharge Facility Name: [facility] - DIAGNOSES Admission Diagnoses: 1. Atrial fibrillation with rapid ventricular response 2. Seizure 3. Chronic kidney disease stage III 4. Elevated troponin 5. Pneumonia 6. Pulmonary hypertension 7. Type 2 diabetes mellitus Discharge Diagnoses with Status of Each Condition: 1. Atrial fibrillation with rapid ventricular response- The patient's RVR has been fairly well controlled with use of metoprolol and amiodarone. He has still been running in the 110s however. Part of this may be due to the patient' s cardiopulmonary compromise secondary to pleural effusion. Continue present care. 2. Seizure- This was a witnessed seizure in the emergency department and this is the only seizure that we are aware of that the patient has ever had. He has been on benzodiazepines every [address] of the scan of the brain was negative for any acute pathology. s3. Chronic kidney disease stage III- The patient's creatinine today is at his baseline which is typically between 1.0 -1.2. He is 1.0 today. We will very gently hydrate the patient as he does have a history of elevated pulmonary hypertension. 4. Elevated troponin -The patient's initially elevated troponin is easily explained by the rapid atrial fibrillation. Subsequent testing found the troponin trending down to normal limits. 5. Pneumonia- Today the patient's white blood cell count is 49,000. He is on 6 L of oxygen with an oxygen saturation rate of 96% but he is breathing 35 times a minute. The patient has been treated with cefepime, Levaquin, and vancomycin for hospital-acquired pneumonia. He has continued to worsen and his pleural effusion is growing in size according to the radiologist. I discussed the case at great length with Dr. Zhou (general surgery) who feels that the patient has a loculated pleural effusion and should be opened so that the loculated pfeiffer may be removed; Dr. Zhou recommends transferring the patient at this point in time. I spoke with Dr. Jeffery, infectious disease specialist on-call at the [facility] this morning who feels that the patient likely has an empyema and we will not be able to treat him successfully without surgical intervention. In discussing the case at length with the patient's daughter and the patient we have decided to transfer the patient to [facility] in [facility] where he will be attended to by Dr. Vicky Larose, and will be consulted by Dr. Barrie Marrufo, cardiothoracic surgeon. 6. Pulmonary hypertension- The patient's BNP on admission is 723. He has a known history of elevated right-sided heart pressures. I started him on spironolactone, 25 mg p.o. daily. 7. Type 2 diabetes mellitus- The patient has a history of type 2 diabetes mellitus and had been on metformin. According to his daughter Dr. Maurer took him off of his metformin last week, for reasons unknown to her. Recommend monitoring. - HPI History of Present Illness: Mr. Jazzmine Singh is a very pleasant 82-year-old gentleman with an extensive past medical history significant for multiple comorbidities including but not limited to chronic atrial fibrillation, congestive heart failure, Hypertension, type 2 diabetes mellitus, hyperlipidemia, rheumatoid arthritis, psoriasis, gastroesophageal reflux disease, diverticulosis, benign prostatic hyperplasia, prostate cancer, Monsivais's palsy, peripheral neuropathy, degenerative joint disease , chronic kidney disease stage III, and a pleural effusion which was addressed a couple of months ago at [facility]. He was treated for pneumonia at the end of February and says that since then he has had periods of shortness of breath which typically last 10-15 minutes and are self resolving; today however his shortness of breath did not resolve and after an hour he called his daughter who came from [place] and brought him to the hospital. Upon presentation to the hospital the patient was found to be afebrile with a cough and in atrial fibrillation with a rate in the 160s. Patient was also found to have diminished breath sounds at the right base. Lab work showed the patient had a slightly elevated troponin at 0.29 with a higher than normal BUN at 42 and a creatinine of 1.2. A BNP was 723 and the patient's leukocyte count was 33,000. Also while in the emergency department the patient had a seizure; to the best of anyone's knowledge this is the first and only time the patient has had a seizure. This was also self resolving and the patient was postictal for about 15 or 20 minutes following the seizure. A chest x-ray was done which showed that the patient has pleural effusion, which was essentially corrected in February has come back and is approximately one third of the the right side of his chest. - HOSPITAL COURSE Hospital Course: Mr. Jazzmine Singh is a very pleasant 82-year-old gentleman with an extensive past medical history significant for multiple comorbidities including but not limited to chronic atrial fibrillation, congestive heart failure, Hypertension, type 2 diabetes mellitus, hyperlipidemia, rheumatoid arthritis, psoriasis, gastroesophageal reflux disease, diverticulosis, benign prostatic hyperplasia, prostate cancer, Monsivais's palsy, peripheral neuropathy, degenerative joint disease , chronic kidney disease stage III, and a pleural effusion which was addressed a couple of months ago at [facility]. He was treated for pneumonia at the end of February and says that since then he has had periods of shortness of breath which typically last 10-15 minutes and are self resolving; today however his shortness of breath did not resolve and after an hour he called his daughter who came from [place] and brought him to the hospital. Upon presentation to the hospital the patient was found to be afebrile with a cough and in atrial fibrillation with a rate in the 160s. Patient was also found to have diminished breath sounds at the right base. Lab work showed the patient had a slightly elevated troponin at 0.29 with a higher than normal BUN at 42 and a creatinine of 1.2. A BNP was 723 and the patient's leukocyte count was 33,000. Also while in the emergency department the patient had a seizure; to the best of anyone's knowledge this is the first and only time the patient has had a seizure. This was also self resolving and the patient was postictal for about 15 or 20 minutes following the seizure. A chest x-ray was done which showed that the patient has pleural effusion, which was essentially corrected in February has come back and is approximately one third of the the right side of his chest. Today the patient's white blood cell count is 49,000. He is on 6 L of oxygen with an oxygen saturation rate of 96% but he is breathing 35 times a minute. The patient has been treated with cefepime, Levaquin, and vancomycin for hospital-acquired pneumonia. He has continued to worsen and his pleural effusion is growing in size according to the radiologist. I discussed the case at great length with Dr. Zhou (general surgery) who feels that the patient has a loculated pleural effusion and should be opened so that the loculated pfeiffer may be removed; Dr. Zhou recommends transferring the patient at this point in time. I spoke with Dr. Jeffery, infectious disease specialist on-call at the [facility] this morning who feels that the patient likely has an empyema and we will not be able to treat him successfully without surgical intervention. In discussing the case at length with the patient's daughter and the patient we have decided to transfer the patient to [facility] in [facility] where he will be attended to by Dr. Vicky Larose, and will be consulted by Dr. Barrie Marrufo, cardiothoracic surgeon. - ALLERGIES Allergies/Adverse Reactions: Allergies Allergy/AdvReac Type Severity Reaction Status Date / Time No Known Drug Allergies Allergy Verified 05/26/18 11:57 - MEDICATIONS Home Medications: Ambulatory Orders Medication Instructions Recorded Confirmed Simvastatin 20 mg PO QPM 08/11/13 05/26/18 Dorzolamide 2% Ophth Drops 1 drops EACHEYE BID 08/13/15 05/26/18 [Trusopt 2% Ophth Drops] Sulfasalazine [Sulfazine] 1,500 mg PO 0800,1700 08/13/15 05/26/18 Warfarin [Coumadin] 2.5 mg PO SUMOTUTHFR@1700 12/01/16 05/26/18 Timolol 0.5% Ophth Drops [Timoptic 1 drops EACHEYE BID 04/18/18 05/26/18 0.5% Ophth Drops] Warfarin [Coumadin] 1.25 mg PO WESA@1700 04/18/18 05/26/18 Amiodarone HCl 100 mg PO DAILY 05/26/18 05/26/18 Brimonidine 0.15% Ophth Drops 1 drops EACHEYE BID 05/26/18 05/26/18 [Alphagan P 0.15% Ophth Drops] Metoprolol Tartrate 50 mg PO BID 05/26/18 05/26/18 Multivitamin W/Minerals [Theragran 1 tab PO DAILY 05/26/18 05/26/18 M] Spironolactone 12.5 mg PO BID 05/26/18 05/26/18 - PHYSICAL EXAM AT DISCHARGE General Appearance: positive: No acute distress, Lethargic Eyes Bilateral: positive: Normal inspection, PERRL, EOMI, No lid inflammation, Conjunctivae nml, No scleral icterus ENT: positive: ENT inspection nml, Pharynx nml, No signs of dehydration Neck: positive: Nml inspection, Thyroid nml, No JVD, Trachea midline. negative : Thyromegaly Respiratory: positive: Chest non-tender, No respiratory distress, Breath sounds nml. negative: Wheezes Cardiovascular: positive: Regular rate & rhythm, No murmur, No gallop Peripheral Pulses: positive: 1+ Abdomen: positive: Non-tender, No organomegaly, Nml bowel sounds, No distention. negative: Guarding, Rebound Back: positive: Nml inspection. negative: CVA tenderness (R), CVA tenderness (L ) Skin: positive: Color nml, No rash, Warm, Dry. negative: Cyanosis Extremities: positive: Non-tender, Full ROM, Nml appearance Neurologic/Psychiatric: positive: Oriented x3, CN's nml (2-12), Motor nml, Sensation nml, Mood/affect nml - LABS Result Diagrams: 05/28/18 04:56 05/28/18 04:56 - DIAGNOSTIC IMAGING Diagnostic Imaging Results: Final report reviewed Diagnostic Imaging Results Comments: EXAM: Chest W/O DATE: 05/24/2018 9:38 AM CLINICAL HISTORY: PLEURAL EFFUSION,RIGHT COMPARISON: 04/19/2018. TECHNIQUE: Routine helical CT imaging was performed through the chest. IV contrast: None. Reconstructions: Coronal and sagittal. In accordance with CT protocol optimization, one or more of the following dose reduction techniques were utilized for this exam: automated exposure control, adjustment of mA and/or KV based on patient size, or use of iterative reconstructive technique. FINDINGS: Lungs/Pleura: There has been an interval decrease in size of the moderate-sized loculated right pleural effusion with associated consolidation which is also decreased. Within the aerated lung, no mass or significant nodule is detected. The left lung remains clear. There is no pneumothorax. Mediastinum: There is no lymphadenopathy or mass. The great vessels and coronary arteries are calcified. The heart is normal for size without pericardial effusion. Bones: Unremarkable. Visualized Abdomen: Unremarkable. Other: None. IMPRESSION: Interval decrease in loculated right pleural effusion and associated consolidation. The etiology of the effusion remains unclear, malignancy should be excluded. EXAM: CHEST RADIOGRAPHY EXAM DATE: 05/26/2018 01:09 PM. CLINICAL HISTORY: Dyspnea. Cough and congestion. COMPARISON: CHEST 2 VIEW PA/LAT 05/19/2018 10:47 AM CHEST W/O 05/24/2018 9:37 AM. TECHNIQUE: 1 view. FINDINGS: Lungs/Pleura: Right pleural fluid and right basilar pulmonary opacity has increased compared to the prior radiographs on 05/19/2018. No pneumothorax. The left lung is clear. Mediastinum: Within exam limitations, the cardiomediastinal contour is stable. Other: No acute osseous abnormality. IMPRESSION: Right pleural fluid and density of right basilar pulmonary consolidation have increased compared to prior chest radiographs on 05/19/2018. EXAM: CT HEAD EXAM DATE: 05/26/2018 03:01 PM. CLINICAL HISTORY: New seizure, high INR. COMPARISON: CT head without contrast 04/22/2018. MR orbits 11/17/2006. TECHNIQUE: Multiaxial CT images were obtained from the foramen magnum to the vertex. Reformats: Coronal. IV contrast: None. In accordance with CT protocol optimization, one or more of the following dose reduction techniques were utilized for this exam: automated exposure control, adjustment of mA and/or KV based on patient size, or use of iterative reconstructive technique. FINDINGS: Parenchyma: No intraparenchymal hemorrhage. No evidence of mass, midline shift, or CT findings of infarction. Rhoades-white differentiation is distinct. Mild diffuse chronic microangiopathic white matter changes are evident. Extraaxial Spaces: Normal for age. No subdural or epidural collections identified. Ventricles: Normal in configuration, mildly prominent, commensurate with the sulcal enlargement in keeping with age-related volume loss. Sinuses and Orbits: Imaged paranasal sinuses, orbits, and mastoids show no significant abnormality. Bones: No fracture. No suspicious focal osseous lesion. There is minimal to mild erosion of the visualized odontoid process with prominent soft tissue posteriorly, similar to remote 2006 MRI, possibly degenerative or inflammatory in etiology. Other: None. IMPRESSION: No acute intracranial abnormality, specifically no intracranial hemorrhage. - FOLLOW UP Follow Up: Follow-up with Dr. Maurer after you are discharged from [facility]. - TIME SPENT Time Spent in Discharge (Minutes): 60
[2018-05-28] MEDS: AMIODARONE 200 MG TABLET PO SCH (11:31)
[2018-05-28] MEDS: sulfaSALAzine 500 MG TABLET PO SCH (11:31)
[2018-05-28 11:32] VITALS: BP 119/64
[2018-05-28] MEDS: METOPROLOL TARTRATE 50 MG TABLET PO SCH (11:32)
[2018-05-28] MEDS: MULTIVITAMIN W/MINERALS TABLET PO SCH (11:33)
[2018-05-28] MEDS ORDERED: WARFARIN 2.5 MG TABLET PO SCH (17:00)
== END 2018-05-28 11:15 | disposition short-term general hospital (02) | DRG 177 ==
LOC: ED 11:43 → ICU 14:59
PROVIDERS: ADMIT Hospitalist; ATTEND Hospitalist
DX: J86.9 Pyothorax without fistula (principal); J18.9 Pneumonia, unspecified organism; I13.0 Hypertensive heart and chronic kidney disease with heart failure and stage 1 through stage 4 chronic kidney disease, or unspecified chronic kidney disease; E11.22 Type 2 diabetes mellitus with diabetic chronic kidney disease; N18.3 Chronic kidney disease, stage 3 (moderate); I50.9 Heart failure, unspecified; I48.2 Chronic atrial fibrillation; R56.9 Unspecified convulsions; E78.00 Pure hypercholesterolemia, unspecified; R79.89 Other specified abnormal findings of blood chemistry; I48.0 Paroxysmal atrial fibrillation; I27.29 Other secondary pulmonary hypertension; N40.1 Benign prostatic hyperplasia with lower urinary tract symptoms; R35.1 Nocturia; H40.9 Unspecified glaucoma; J32.9 Chronic sinusitis, unspecified; L40.9 Psoriasis, unspecified; F40.240 Claustrophobia; M19.90 Unspecified osteoarthritis, unspecified site; E78.5 Hyperlipidemia, unspecified; M06.9 Rheumatoid arthritis, unspecified; K21.9 Gastro-esophageal reflux disease without esophagitis; K57.90 Diverticulosis of intestine, part unspecified, without perforation or abscess without bleeding; G51.0 Bell's palsy; E11.42 Type 2 diabetes mellitus with diabetic polyneuropathy; Z79.01 Long term (current) use of anticoagulants; Z79.84 Long term (current) use of oral hypoglycemic drugs; Z87.01 Personal history of pneumonia (recurrent); Z85.46 Personal history of malignant neoplasm of prostate; Z87.891 Personal history of nicotine dependence
CPT/HCPCS: 36415; 70450; 71045; 80048; 80053; 80202; 81001; 81003; 82040; 82803; 83605; 83690; 83735; 83880; 84100; 84484; 85025; 85027; 85610; 87040; 87070; 87086; 87150; 87205; 93005; 96361; 96365; 96375; 96376; 99283; 99284; 99291

== ENCOUNTER 2018-05-28 11:21 | Outpatient (CLI) | payer MEDICARE, OTHER | END 2018-05-28 11:22 | disposition short-term general hospital (02) | LOC: EMS 11:21 | PROVIDERS: ATTEND Surgery | DX: J18.9 Pneumonia, unspecified organism (principal) | CPT/HCPCS: A0425; A0428 ==